=== PATIENT | male | born 1960 | race Caucasian/White ===

== ENCOUNTER 2017-03-03 10:35 | Inpatient (IN) | payer OTHER ==
[2017-03-03] VITALS (20 sets, daily range): BP systolic 76–124; BP diastolic 62–85; PULSE 0–145; RESP 12–22; TEMP 91–100; O2SAT 89–100
[~2017-03-03] VITALS: Ht 180.3 cm; Wt 145.6 kg
[~2017-03-03 10:35] MED LIST: AMIODARONE HCL 150 MG/3 ML VIAL IV ONE; ASPI81TA11 PO; CALCIUM CHLORIDE 10% SOLN 1 GRAM/10 ML SYR IV ONE; CARD240C6 PO; EPINEPHrine HCL (1:10,000) 1 MG/10 ML SYRINGE IV ONE; FURO1TAB93 PO; GLUCTAB PO; MULT-65 PO; SODIUM BICARBONATE 8.4% INJ 50 MEQ/50 ML SYR IV ONE
[2017-03-03] MEDS ORDERED: SODIUM CHLOR 0.9% 1000 ML INJ 1,000 ML IV SCH ×2 (10:52→11:57)
[2017-03-03] MEDS ORDERED: SODIUM CHLORIDE 0.9% FLUSH 5 ML FLUSH IV FLUSH PRN (11:00)
[2017-03-03] MEDS ORDERED: PROPOFOL 1000 MG/100 ML INJ 100 ML ONE (11:01)
[2017-03-03] MEDS ORDERED: MIDAZOLAM HCL 5 MG/ML VIAL (1 ML) ONE ×2 (11:06→14:28)
[2017-03-03 11:43] LABS: BLOOD GAS CARBOXYHEMOGLOBIN 3.8 % (0-4); BLOOD GAS HCO3 16 mmol/L (22-26); BLOOD GAS O2 HGB SATURATION 89 % (90-100); BLOOD GAS OXYGEN CONTENT 18.9 Vol % (12.0-20.0); BLOOD GAS PCO2 53 mmHg (38-42); BLOOD GAS PO2 95 mmHG (61-120); BLOOD GAS TOTAL HGB 15.1 G/DL (12.0-16.0); TEMP CORR TO 98.6
[2017-03-03 11:44] LABS: AUTOMATED NEUTROPHIL # 10.6 TH/MM3 (1.8-7.7); BASOPHIL # 0.1 TH/MM3 (0-0.2); BASOPHIL % 0.5 % (0.0-2.0); EOSINOPHIL # 0.2 TH/MM3 (0-0.4); EOSINOPHIL % 1.2 % (0.0-4.0); HEMATOCRIT 44.5 % (39.0-51.0); LYMPH % 7.9 % (9.0-44.0); MEAN CELL VOLUME 91.3 FL (80.0-100.0); MEAN CORPUSCULAR HGB CONC 32.8 % (32.0-36.0); MONO % 4.8 % (0.0-8.0); NEUT % 85.6 % (16.0-70.0); PLATELET COUNT 248 TH/MM3 (150-450); RED BLOOD COUNT 4.87 MIL/MM3 (4.50-5.90); RED CELL DISTRIBUTION WIDTH 15.7 % (11.6-17.2); WHITE BLOOD COUNT 12.3 TH/MM3 (4.0-11.0)
[2017-03-03 11:45] LABS: CRITICAL VALUE YES; DRAW SITE ARTLINE; FIO2 100 %; OXYGEN DEVICE VENT; STAT YES; ULNAR PULSE PRESENT; VENT SETTINGS AC16/550/+5/100
--- NOTE | 2017-03-03 11:48 | PD ---
HPI Chief Complaint: Code Blue Time Seen by Provider: 10:52 Travel History International Travel<30 days: No Contact w/Intl Traveler<30days: No Traveled to known affect area: No History of Present Illness HPI The patient is a 56-year-old male who presents to the emergency department via EMS as a cardiac arrest. According to EMS the patient was in the living room, the is in another room talking to him, when she heard a loud noise, when she entered the living room, the patient was on the floor face down. When EMS arrived they stated the patient was in fine V. fib, the defibrillator the patient 1 and he subsequently went into asystole and PEA. They placed an IM in the left lower extremity and administered 4 rounds of epinephrine and 100 mEq of bicarbonate. They stated the patient went into PA and then they regained pulses just prior to arrival. The patient does have a history of cardiomyopathy, no further information is obtainable from the patient as he was intubated in the field by EMS. Upon arrival the patient was intubated, pulseless, and CPR was initially started. PFSH Past Medical History Autoimmune Disease: No Cancer: No Cardiovascular Problems: Yes COPD: Yes Diabetes: No Diminished Hearing: No Endocrine: No Gastrointestinal Disorders: No Genitourinary: No Hypertension: Yes Immune Disorder: No Musculoskeletal: Yes Neurologic: No Psychiatric: No Reproductive: No Respiratory: Yes Tetanus Vaccination: Unknown Past Surgical History Abdominal Surgery: No Cardiac Surgery: Yes Ear Surgery: No Endocrine Surgery: No Eye Surgery: No Genitourinary Surgery: No Gynecologic Surgery: No Joint Replacement: No Oral Surgery: No Pacemaker: No Thoracic Surgery: No Other Surgery: Yes Social History Alcohol Use: Yes (SEVERAL TIMES PER WEEK) Tobacco Use: No (QUIT SMOKING ON THURSDAY LAST WEEK) Substance Use: No Allergies-Medications (Allergen,Severity, Reaction): Coded Allergies: No Known Allergies (Verified , 03/03/17) Reported Meds & Prescriptions Reported Meds & Active Scripts Active Active Prescriptions or Reported Medications Unobtainable Review of Systems ROS Limitations: Intubated Except as stated in HPI: all other systems reviewed are Neg Physical Exam Narrative GENERAL: 56-year-old male who arrives on a backboard, intubated, without pulse. SKIN: Focused skin assessment reveal slightly mottled skin. HEAD: Atraumatic. Normocephalic. EYES: Pupils equal and round. 4 mm bilateral and sluggish. ENT: No nasal bleeding or discharge. Endotracheal tube in place. NECK: Trachea midline. No JVD. CARDIOVASCULAR: No palpable pulse. RESPIRATORY: No accessory muscle use. Bilateral breath sounds via bag valve ventilation and endotracheal tube. GASTROINTESTINAL: Abdomen obese. No rigidity noted. MUSCULOSKELETAL: No obvious deformities. No clubbing. No cyanosis. No edema. NEUROLOGICAL: Intubated, GCS of 3. PSYCHIATRIC: Unable to obtain. Data Data Last Documented VS Vital Signs Date Time Temp Pulse Resp B/P Pulse Ox O2 Delivery O2 Flow Rate FiO2 03/03/17 12:00 134 12 102/68 95 Auto-Vent 03/03/17 11:00 100 03/03/17 10:33 15.00 Orders Electrocardiogram (03/03/17 10:52) Complete Blood Count With Diff (03/03/17 10:52) Comprehensive Metabolic Panel (03/03/17 10:52) Creatine Kinase (Cpk) (03/03/17 10:52) Prothrombin Time / Inr (Pt) (03/03/17 10:52) Act Partial Throm Time (Ptt) (03/03/17 10:52) Troponin I (03/03/17 10:52) Urinalysis - C+S If Indicated (03/03/17 10:52) Arterial Blood Gas (Abg) (03/03/17 10:52) Chest, Single Ap (03/03/17 10:52) Ct Brain W/O Iv Contrast(Rout) (03/03/17 10:52) Blood Glucose (03/03/17 10:52) Ecg Monitoring (03/03/17 10:52) Iv Access Insert/Monitor (03/03/17 10:52) Oximetry (03/03/17 10:52) Urinary Catheter Insert/Apply (03/03/17 10:52) Sodium Chloride 0.9% Flush (Ns Flush) (03/03/17 11:00) Sodium Chlor 0.9% 1000 Ml Inj (Ns 1000 M (03/03/17 10:52) Propofol 1000 Mg/100 Ml Inj (Diprivan 10 (03/03/17 11:01) Midazolam Inj (Versed Inj) (03/03/17 11:06) Arterial Blood Gas (Abg) (03/03/17 11:35) Admit To Inpatient (03/03/17 ) Code Status (03/03/17 11:57) Vital Signs (Adult) HECTOR.Q1H (03/03/17 11:57) Activity Bed Rest (03/03/17 11:57) ^ Elevate Head Of Bed (03/03/17 11:57) Diet Npo (03/03/17 Lunch) Sodium Chlor 0.9% 1000 Ml Inj (Ns 1000 M (03/03/17 11:57) Sodium Chloride 0.9% Flush (Ns Flush) (03/03/17 12:00) Sodium Chloride 0.9% Flush (Ns Flush) (03/03/17 21:00) Famotidine (Pepcid) (03/03/17 21:00) Artificial Tears Opth Soln (Tears Natura (03/03/17 13:00) Ondansetron Inj (Zofran Inj) (03/03/17 12:00) Albuterol-Ipratropium Neb (Duoneb Neb) (03/03/17 16:00) Albuterol-Ipratropium Neb (Duoneb Neb) (03/03/17 12:00) Echo 2d Comp With Doppler (03/03/17 ) Consult Cardiology (03/03/17 ) Straightening Machine Operator / Telemetry HECTOR.Q8H (03/03/17 11:57) Scd Bilateral/Knee High HECTOR.BID (03/03/17 11:57) ^ Initiate Protocol (03/03/17 11:57) Instruction (03/03/17 11:57) [facility] Nursing Information (03/03/17 12:00) Chlorhexidine 2% Cloth (Chlorhexidine 2% (03/04/17 04:00) Chlorhexidine 2% Cloth (Chlorhexidine 2% (03/03/17 12:00) Mrsa Pcr Surveillance (03/03/17 11:57) Docusate Sodium-Senna ([place]-Colace) (03/03/17 21:00) Magnesium Hydroxide Liq (Milk Of Magnesi (03/03/17 12:00) Sennosides (Senokot) (03/03/17 12:00) Bisacodyl Supp (Dulcolax Supp) (03/03/17 12:00) Lactulose Liq (Lactulose Liq) (03/03/17 12:00) ^ Medication Admin Instruction (03/03/17 11:57) Notify Dr: Other (03/03/17 11:57) Potassium Chlor 40 Meq Premix (Kcl 40 Me (03/03/17 12:00) Potassium Chlor 20 Meq Premix (Kcl 20 Me (03/03/17 12:00) Potassium Chloride Eff (K-Lyte Cl Eff) (03/03/17 12:00) Potassium Chlor 40 Meq Premix (Kcl 40 Me (03/03/17 12:00) Potassium Chlor 20 Meq Premix (Kcl 20 Me (03/03/17 12:00) Magnesium Sulfate Inj (Magnesium Sulfate (03/03/17 12:00) Magnesium Oxide (Mag-Ox) (03/03/17 12:00) Magnesium Sulfate Inj (Magnesium Sulfate (03/03/17 12:00) Potassium Phosphate (K-Phos) (03/03/17 12:00) Sodium Phosphate Inj (Sodium Phosphate I (03/03/17 12:00) Potassium Phosphate (K-Phos) (03/03/17 12:00) Potassium Phosphate Inj (Potassium Phosp (03/03/17 12:00) Neurological Rass Scale HECTOR.Q2H.E (03/03/17 11:57) ^ Elevate Head Of Bed (03/03/17 11:57) Chlorhexidine 0.12% Liq (Peridex 0.12% L (03/03/17 20:00) Resp Ventilation- Volume (03/03/17 ) Restraints Non-Violent HECTOR.Q3H (03/03/17 11:57) Ventilator Weaning Readiness HECTOR.DAILY@0800 (03/03/17 11:57) Blood Glucose Goal (Criteria) (03/03/17 11:57) Hypoglycemia 70 Mg/Dl Or < (03/03/17 11:57) Notify Dr: Other (03/03/17 11:57) Dextrose 50% In Luis (Vial) Inj (D50w (Vi (03/03/17 12:00) Glucagon Inj (Glucagon Inj) (03/03/17 12:00) Insulin Human Reg Supp Scale (Novolin R (03/03/17 16:00) Inpatient Certification (03/03/17 ) Norepinephrine-Dextrose Drip (Levophed-D (03/03/17 12:15) Terbutaline Inj (Brethine Inj) (03/03/17 12:15) Admit Order (Ed Use Only) (03/03/17 12:25) Arterial Blood Gas (Abg) (03/03/17 12:28) Magnesium (Mg) (03/03/17 11:10) Phosphorus (Po4) (03/03/17 11:10) Labs Laboratory Tests Test 03/03/17 03/03/17 03/03/17 11:10 11:30 11:35 White Blood Count 12.3 TH/MM3 Red Blood Count 4.87 MIL/MM3 Hemoglobin 14.6 GM/DL Hematocrit 44.5 % Mean Corpuscular Volume 91.3 FL Mean Corpuscular Hemoglobin 30.0 PG Mean Corpuscular Hemoglobin 32.8 % Concent Red Cell Distribution Width 15.7 % Platelet Count 248 TH/MM3 Mean Platelet Volume 8.5 FL Neutrophils (%) (Auto) 85.6 % Lymphocytes (%) (Auto) 7.9 % Monocytes (%) (Auto) 4.8 % Eosinophils (%) (Auto) 1.2 % Basophils (%) (Auto) 0.5 % Neutrophils # (Auto) 10.6 TH/MM3 Lymphocytes # (Auto) 1.0 TH/MM3 Monocytes # (Auto) 0.6 TH/MM3 Eosinophils # (Auto) 0.2 TH/MM3 Basophils # (Auto) 0.1 TH/MM3 CBC Comment AUTO DIFF Differential Total Cells 100 Counted Neutrophils % (Manual) 64 % Band Neutrophils % 10 % Lymphocytes % 8 % Monocytes % 6 % Eosinophils % 1 % Neutrophils # (Manual) 10.5 TH/MM3 Metamyelocytes 9 % Myelocytes 2 % Differential Comment FINAL DIFF MANUAL Platelet Estimate NORMAL Platelet Morphology Comment NORMAL [place] Cells 1+ Prothrombin Time 17.0 SEC Prothromb Time International 1.5 RATIO Ratio Activated Partial 34.4 SEC Thromboplast Time Urine Color ORANGE Urine Turbidity CLEAR Urine pH 5.5 Urine Specific [place] 1.022 Urine Protein TRACE mg/dL Urine Glucose (UA) NEG mg/dL Urine Ketones NEG mg/dL Urine Occult Blood SMALL Urine Nitrite NEG Urine Bilirubin NEG Urine Urobilinogen 4.0 MG/DL Urine Leukocyte Esterase NEG Urine RBC 7 /hpf Urine WBC 2 /hpf Urine Squamous Epithelial <1 /hpf Cells Urine Hyaline Casts 16 /lpf Urine Mucus FEW /lpf Urine Sperm RARE Microscopic Urinalysis Comment CATH-CULT NOT IND Sodium Level 134 MEQ/L Potassium Level 3.9 MEQ/L Chloride Level 99 MEQ/L Carbon Dioxide Level 18.9 MEQ/L Anion Gap 16 MEQ/L Blood Urea Nitrogen 29 MG/DL Creatinine 1.41 MG/DL Estimat Glomerular Filtration 52 ML/MIN Rate Random Glucose 121 MG/DL Calcium Level 8.0 MG/DL Phosphorus Level 7.1 MG/DL Magnesium Level 2.1 MG/DL Total Bilirubin 1.6 MG/DL Aspartate Amino Transf 53 U/L (AST/SGOT) Alanine Aminotransferase 39 U/L (ALT/SGPT) Alkaline Phosphatase 111 U/L Total Creatine Kinase 99 U/L Troponin I 0.59 NG/ML Total Protein 6.5 GM/DL Albumin 2.9 GM/DL Urine Opiates Screen NEG Urine Barbiturates Screen NEG Urine Amphetamines Screen NEG Urine Benzodiazepines Screen NEG Urine Cocaine Screen NEG Urine Cannabinoids Screen NEG Blood Type O NEGATIVE Antibody Screen NEGATIVE Blood Bank Comment Blood Gas Puncture Site ARTLINE Blood Gas Patient Temperature 98.6 Blood Gas HCO3 16 mmol/L Blood Gas Base Excess -12.0 mmol/L Blood Gas Oxygen Saturation 89 % Arterial Blood pH 7.11 Arterial Blood Partial 53 mmHg Pressure CO2 Arterial Blood Partial 95 mmHG Pressure O2 Arterial Blood Oxygen Content 18.9 Vol % Arterial Blood 3.8 % Carboxyhemoglobin Arterial Blood Methemoglobin 1.0 % Blood Gas Hemoglobin 15.1 G/DL Oxygen Delivery Device VENT Blood Gas Ventilator Setting AC16/550/+5/100 Blood Gas Inspired Oxygen 100 % [facility] Medical Decision Making Medical Screen Exam Complete: Yes Emergency Medical Condition: Yes Medical Record Reviewed: Yes Interpretation(s) EKG reveals atrial fibrillation with aberrancy, PVC noted. IV conduction delay noted. Q wave noted in lead 2, 3, and aVF. Prominent R wave noted in V1 and V2 , possible posterior AK. Laboratory Tests Test 03/03/17 03/03/17 03/03/17 11:10 11:30 11:35 White Blood Count 12.3 TH/MM3 Red Blood Count 4.87 MIL/MM3 Hemoglobin 14.6 GM/DL Hematocrit 44.5 % Mean Corpuscular Volume 91.3 FL Mean Corpuscular Hemoglobin 30.0 PG Mean Corpuscular Hemoglobin 32.8 % Concent Red Cell Distribution Width 15.7 % Platelet Count 248 TH/MM3 Mean Platelet Volume 8.5 FL Neutrophils (%) (Auto) 85.6 % Lymphocytes (%) (Auto) 7.9 % Monocytes (%) (Auto) 4.8 % Eosinophils (%) (Auto) 1.2 % Basophils (%) (Auto) 0.5 % Neutrophils # (Auto) 10.6 TH/MM3 Lymphocytes # (Auto) 1.0 TH/MM3 Monocytes # (Auto) 0.6 TH/MM3 Eosinophils # (Auto) 0.2 TH/MM3 Basophils # (Auto) 0.1 TH/MM3 CBC Comment AUTO DIFF Differential Total Cells 100 Counted Neutrophils % (Manual) 64 % Band Neutrophils % 10 % Lymphocytes % 8 % Monocytes % 6 % Eosinophils % 1 % Neutrophils # (Manual) 10.5 TH/MM3 Metamyelocytes 9 % Myelocytes 2 % Differential Comment FINAL DIFF MANUAL Platelet Estimate NORMAL Platelet Morphology Comment NORMAL [place] Cells 1+ Prothrombin Time 17.0 SEC Prothromb Time International 1.5 RATIO Ratio Activated Partial 34.4 SEC Thromboplast Time Urine Color ORANGE Urine Turbidity CLEAR Urine pH 5.5 Urine Specific [place] 1.022 Urine Protein TRACE mg/dL Urine Glucose (UA) NEG mg/dL Urine Ketones NEG mg/dL Urine Occult Blood SMALL Urine Nitrite NEG Urine Bilirubin NEG Urine Urobilinogen 4.0 MG/DL Urine Leukocyte Esterase NEG Urine RBC 7 /hpf Urine WBC 2 /hpf Urine Squamous Epithelial <1 /hpf Cells Urine Hyaline Casts 16 /lpf Urine Mucus FEW /lpf Urine Sperm RARE Microscopic Urinalysis Comment CATH-CULT NOT IND Sodium Level 134 MEQ/L Potassium Level 3.9 MEQ/L Chloride Level 99 MEQ/L Carbon Dioxide Level 18.9 MEQ/L Anion Gap 16 MEQ/L Blood Urea Nitrogen 29 MG/DL Creatinine 1.41 MG/DL Estimat Glomerular Filtration 52 ML/MIN Rate Random Glucose 121 MG/DL Calcium Level 8.0 MG/DL Phosphorus Level 7.1 MG/DL Magnesium Level 2.1 MG/DL Total Bilirubin 1.6 MG/DL Aspartate Amino Transf 53 U/L (AST/SGOT) Alanine Aminotransferase 39 U/L (ALT/SGPT) Alkaline Phosphatase 111 U/L Total Creatine Kinase 99 U/L Troponin I 0.59 NG/ML Total Protein 6.5 GM/DL Albumin 2.9 GM/DL Urine Opiates Screen NEG Urine Barbiturates Screen NEG Urine Amphetamines Screen NEG Urine Benzodiazepines Screen NEG Urine Cocaine Screen NEG Urine Cannabinoids Screen NEG Blood Type O NEGATIVE Antibody Screen NEGATIVE Blood Bank Comment Blood Gas Puncture Site ARTLINE Blood Gas Patient Temperature 98.6 Blood Gas HCO3 16 mmol/L Blood Gas Base Excess -12.0 mmol/L Blood Gas Oxygen Saturation 89 % Arterial Blood pH 7.11 Arterial Blood Partial 53 mmHg Pressure CO2 Arterial Blood Partial 95 mmHG Pressure O2 Arterial Blood Oxygen Content 18.9 Vol % Arterial Blood 3.8 % Carboxyhemoglobin Arterial Blood Methemoglobin 1.0 % Blood Gas Hemoglobin 15.1 G/DL Oxygen Delivery Device VENT Blood Gas Ventilator Setting AC16/550/+5/100 Blood Gas Inspired Oxygen 100 % Last Impressions Head CT 03/03/17 1052 Signed Impressions: Service Date/Time: Friday, March 03, 2017 12:02 - CONCLUSION: 1. High density ovoid lesion within the region of the sella/suprasellar cistern measuring 11 x 14 mm. This raises the possibility of anterior communicating artery aneurysm. CTA or MRA of the brain would be helpful for further evaluation of this finding. 2. No evidence of acute hemorrhage, acute infarct, mass effect or extra axial fluid collections. 3. Minimal periventricular white matter small vessel ischemic changes bilaterally. Ronaldo George MD ADDENDUM: The report was called to the emergency room staff immediately at 12:20 PM on 03/03/17. Ronaldo George MD Chest X-Ray 03/03/17 1052 Signed Impressions: Service Date/Time: Friday, March 03, 2017 11:29 - CONCLUSION: Satisfactory position endotracheal, nasogastric and central venous support devices. Mild congestive changes with small right pleural effusion and right basilar airspace disease. Koffi Acuna MD Differential Diagnosis Differential diagnosis includes arrhythmia, cardiopulmonary arrest, COPD exacerbation, cardiomyopathy, AK, pulmonary embolism, hypokalemia, hyperkalemia , hypoxia. Narrative Course Upon arrival the patient had a GCS of 3 and had no palpable pulse. Therefore, CPR was immediately started. The patient had 2 large-bore IVs established, labs are drawn and sent, and the patient was placed on cardiac telemetry monitoring and continuous pulse oximetry monitor. ACLS protocol was followed. The patient was administered 1 mg of epinephrine intravenously. CPR was instituted for 2 more minutes, pulses were rechecked, patient regained pulses. Therefore, the patient was placed on IV fluids, and arterial line was placed in the left wrist and a central line was placed in the right internal jugular vein. As the patient initially had fine V. fib and the was talking to the patient from another room when he apparently arrested, I immediately called the pain medicine physician and spoke with Dr. Dodge regarding a code cool. I also discussed the patient with the [facility] cnc technician on-call, Dr. Osborne, I discussed the patient's case. The patient had a cardiac catheterization performed at 2012 which revealed 20-30% stenosis of his coronary vessels but revealed global hypokinesis consistent with cardiomyopathy. I discussed the patient with his in the consultation room and family. Post procedure x- ray was obtained and CT the brain was obtained. Dr. Dodge evaluated the patient at bedside, was at the patient's bedside at 11:40 AM. The patient was admitted to the cardiovascular intensive surgical care unit for cooling. CT the brain was negative. Chest x-ray reveals proper placement of endotracheal tube and central line. Critical Care Narrative Aggregate critical care time was 45 minutes. Time to perform other separately billable procedures was not included in the critical care time. My time did not include minutes spent treating any other patients simultaneously or on activities that did not directly contribute to the patient's treatment. The services I provided to this patient were to treat and/or prevent clinically significant deterioration that could result in: Anoxia, hypoxia aspiration, arrhythmia, cardiopulmonary arrest, . I provided critical care services requiring my management, as noted below: Chart data review, documentation time, medication orders and management, vital sign assessments/reviewing monitor data, ordering and reviewing lab tests, ordering and interpreting/reviewing x-rays and diagnostic studies, care of the patient and discussion of the patient with the admitting physicians. Procedures Procedure Narrative CENTRAL VENOUS LINE: The site was prepped with Betadine and sterilely draped. It was infiltrated with 1% lidocaine plain. The deep vein was cannulated using normal Seldinger technique. A triple lumen central line was placed in the right internal jugular site and secured with simple interrupted suture. The site was sterilely dressed. The patient tolerated the procedure well. An arterial line was placed in the left radial artery under ultrasound guidance using the Seldinger technique. There was positive arterial return, the patient tolerated the procedure without difficulty. Physician Communication Physician Communication I discussed the patient with the on-call pain medicine physician, Dr. Dodge, who agrees with admission. Diagnosis Primary Impression: Cardiopulmonary arrest with successful resuscitation Admitting Information Admitting Physician Requests: Admit Scripts Unable to Obtain Active Prescriptions or Reported Meds Condition: Critical Devan Hays MD Mar 03, 2017 11:48
[2017-03-03 11:49] LABS: BLOOD, URINE SMALL (NEG); GLUCOSE,URINE NEG (NEG); HEMO FLAGS AUTO DIFF; HYALINE CAST, URINE 16 /lpf (RARE); KETONE, URINE NEG (NEG); MUCUS URINE FEW /lpf (OCC); NITRITE,URINE NEG (NEG); PH, URINE 5.5 (5.0-8.5); SQUAMOUS EPITHELIAL CELL URINE <1 /hpf (0-5)
[2017-03-03 11:50] LABS: URINE COLOR ORANGE (YELLW/STRAW)
[2017-03-03 11:51] LABS: COMMENT (UR) CATH-CULT NOT IND; CULTURE IF INDICATED CATH CULTURE NOT IND
[2017-03-03 11:55] LABS: APTT (PATIENT) 34.4 SEC (24.3-30.1); INTERNATIONAL NORMALIZED RATIO 1.5 RATIO
--- NOTE | 2017-03-03 11:55 | RADRPT ---
EXAM DATE/TIME: 03/03/2017 11:29 [place] COMPARISON: No previous studies available for comparison. INDICATIONS : Evaluate ET tube placement. MEDICAL HISTORY : Unobtainable SURGICAL HISTORY : Unobtainable ENCOUNTER: Initial ACUITY: 1 day PAIN SCORE: Non-responsive. LOCATION: Bilateral chest FINDINGS: Endotracheal tube, right jugular central venous catheter and nasogastric tube are identified and are in good position. Interstitial vascular prominence is seen of both lungs. Consolidating airspace disease is identified in the right base. There is a small right pleural effusion. Heart is moderately enlarged. CONCLUSION: Satisfactory position endotracheal, nasogastric and central venous support devices. Mild congestive changes with small right pleural effusion and right basilar airspace disease. Koffi Acuna MD on March 03, 2017 at 11:51 Board Certified Radiologist. This report was verified electronically.
[2017-03-03] MEDS ORDERED: POTASSIUM PHOSPHATE INJ 30 MMOL in SODIUM CHLOR 0.9% 250 ML INJ 250 ML IV PRN (12:00)
[2017-03-03] MEDS ORDERED: MAGNESIUM OXIDE 400 MG TAB PO PRN (12:00)
[2017-03-03] MEDS ORDERED: CHLORHEXIDINE GLUCONATE 2 % 1 PACK (2 CLOTHS) TOP PRN (12:00)
[2017-03-03] MEDS ORDERED: POTASSIUM PHOSPHATE MONOBASIC 500 MG TAB PO/TUBE PRN (12:00)
[2017-03-03] MEDS ORDERED: MISCELLANEOUS NURSING INFORMATION XX SCH (12:00)
[2017-03-03] MEDS ORDERED: MAGNESIUM SULFATE INJ 2 GM in SODIUM CHLORIDE 0.9% INJ 96 ML IV PRN (12:00)
[2017-03-03] MEDS ORDERED: BISACODYL 10 MG SUPP RECTAL PRN (12:00)
[2017-03-03] MEDS ORDERED: SODIUM CHLORIDE 0.9% FLUSH 10 ML FLUSH IV FLUSH PRN (12:00)
[2017-03-03] MEDS ORDERED: POTASSIUM CHLOR 40 MEQ PREMIX 100 ML IV PRN ×2 (12:00)
[2017-03-03] MEDS ORDERED: MAGNESIUM HYDROXIDE SUSP 30 ML CUP PO PRN (12:00)
[2017-03-03] MEDS ORDERED: RESP: ALBUTEROL 2.5 MG/IPRATROPIUM 0.5 MG NEB (PRN) INH (12:00)
[2017-03-03] MEDS ORDERED: ONDANSETRON HCL 4 MG/2 ML VIAL IV PRN (12:00)
[2017-03-03] MEDS ORDERED: LACTULOSE SYRUP 20 GM/30 ML CUP PO PRN (12:00)
[2017-03-03] MEDS ORDERED: SENNOSIDES 8.6 MG TAB PO PRN (12:00)
[2017-03-03] MEDS ORDERED: DEXTROSE 50% IN WATER 50 ML VIAL(D50) IV PRN (12:00)
[2017-03-03] MEDS ORDERED: SODIUM PHOSPHATE INJ 30 MMOL in SODIUM CHLOR 0.9% 250 ML INJ 240 ML IV PRN (12:00)
[2017-03-03] MEDS ORDERED: MAGNESIUM SULFATE INJ 4 GM in SODIUM CHLORIDE 0.9% INJ 92 ML IV PRN (12:00)
[2017-03-03] MEDS ORDERED: POTASSIUM CHLORIDE 25 MEQ EFFERVESCENT TAB PO PRN (12:00)
[2017-03-03] MEDS ORDERED: GLUCAGON 1 MG/ML VIAL OTHER PRN (12:00)
[2017-03-03] MEDS ORDERED: POTASSIUM PHOSPHATE MONOBASIC 500 MG TAB PO PRN (12:00)
[2017-03-03] MEDS ORDERED: TERBUTALINE INJ 1 MG/ML AMP SQ PRN ×2 (12:15→17:00)
[2017-03-03] MEDS ORDERED: NOREPINEPHRINE-DEXTROSE DRIP 250 ML IV SCH (12:15)
--- NOTE | 2017-03-03 12:18 | HHI.HP ---
HPI Service Critical Care Medicine Primary Care Physician Damián Hebert Admission Diagnosis S/P VFib arrest Diagnosis: Travel History International Travel<30 Days: No Contact w/Intl Traveler <30 Da: No Traveled to Known Affected Are: No History of Present Illness The patient is a 56-year-old male who presents to the emergency department via EMS as a cardiac arrest. According to EMS the patient was in the living room, the is in another room talking to him, when she heard a loud noise, when she entered the living room, the patient was on the floor face down. When EMS arrived they stated the patient was in fine V. fib, the defibrillator the patient 1 and he subsequently went into asystole and PEA. They placed an IM in the left lower extremity and administered 4 rounds of epinephrine and 100 mEq of bicarbonate. They stated the patient went into PA and then they regained pulses just prior to arrival. The patient is well known to the cardiology, Dr. Akbar In discussion with cardiology the patient has a known nonischemic cardiomyopathy, AICD was offered to the patient several months ago, at which the patient declined.He was intubated in the field by EMS. Upon arrival the patient was intubated, pulseless, and CPR was initially started. Critical care medicine was consulted for management. History PFSH Past Medical History Autoimmune Disease: No Cancer: No Cardiovascular Problems: Yes COPD: Yes Diabetes: No Diminished Hearing: No Endocrine: No Gastrointestinal Disorders: No Genitourinary: No Hypertension: Yes Immune Disorder: No Musculoskeletal: Yes Neurologic: No Psychiatric: No Reproductive: No Respiratory: Yes Tetanus Vaccination: Unknown Past Surgical History Abdominal Surgery: No Cardiac Surgery: Yes Ear Surgery: No Endocrine Surgery: No Eye Surgery: No Genitourinary Surgery: No Gynecologic Surgery: No Joint Replacement: No Oral Surgery: No Pacemaker: No Thoracic Surgery: No Other Surgery: Yes Social History Alcohol Use: Yes (SEVERAL TIMES PER WEEK) Tobacco Use: No (QUIT SMOKING ON THURSDAY LAST WEEK) Substance Use: No Allergies-Medications Allergies-Medications (Allergen,Severity, Reaction): Coded Allergies: No Known Allergies (Verified , 03/03/17) Reported Meds & Prescriptions Reported Meds & Active Scripts Active Active Prescriptions or Reported Medications Unobtainable ROS Review of Systems ROS Limitations: Intubated Except as stated in HPI: all other systems reviewed are Neg Review of Systems ROS Limitations: Clinical Condition Past Family Social History Allergies: Coded Allergies: No Known Allergies (Verified , 03/03/17) Physical Exam Vital Signs Vital Signs Date Time Temp Pulse Resp B/P Pulse Ox O2 Delivery O2 Flow Rate FiO2 03/03/17 11:13 116 12 100/74 100 Auto-Vent 03/03/17 11:00 0 12 Physical Exam GENERAL: Obese male, intubated, no sedation, nonresponsive. SKIN: Warm and dry. HEAD: Atraumatic. Normocephalic. EYES: Pupils equal and round. No scleral icterus. No injection or drainage. ENT: No nasal bleeding or discharge. Mucous membranes pink and moist. NECK: Trachea midline. No JVD. CARDIOVASCULAR: Normal rate, irregular rhythm. RESPIRATORY: Mechanical ventilation. Clear to auscultation. Breath sounds equal bilaterally. GASTROINTESTINAL: Abdomen soft, obese. Hypoactive bowel sounds MUSCULOSKELETAL: Extremities without clubbing, cyanosis, or edema. No obvious deformities. NEUROLOGICAL: Intubated, nonresponsive. Laboratory Laboratory Tests Test 03/03/17 03/03/17 11:10 11:35 White Blood Count 12.3 Red Blood Count 4.87 Hemoglobin 14.6 Hematocrit 44.5 Mean Corpuscular Volume 91.3 Mean Corpuscular Hemoglobin 30.0 Mean Corpuscular Hemoglobin 32.8 Concent Red Cell Distribution Width 15.7 Platelet Count 248 Mean Platelet Volume 8.5 Neutrophils (%) (Auto) 85.6 Lymphocytes (%) (Auto) 7.9 Monocytes (%) (Auto) 4.8 Eosinophils (%) (Auto) 1.2 Basophils (%) (Auto) 0.5 Neutrophils # (Auto) 10.6 Lymphocytes # (Auto) 1.0 Monocytes # (Auto) 0.6 Eosinophils # (Auto) 0.2 Basophils # (Auto) 0.1 CBC Comment AUTO DIFF Prothrombin Time 17.0 Prothromb Time International 1.5 Ratio Activated Partial 34.4 Thromboplast Time Urine Color ORANGE Urine Turbidity CLEAR Urine pH 5.5 Urine Specific [place] 1.022 Urine Protein TRACE Urine Glucose (UA) NEG Urine Ketones NEG Urine Occult Blood SMALL Urine Nitrite NEG Urine Bilirubin NEG Urine Urobilinogen 4.0 Urine Leukocyte Esterase NEG Urine RBC 7 Urine WBC 2 Urine Squamous Epithelial <1 Cells Urine Hyaline Casts 16 Urine Mucus FEW Urine Sperm RARE Microscopic Urinalysis Comment CATH-CULT NOT IND Blood Gas Puncture Site ARTLINE Blood Gas Patient Temperature 98.6 Blood Gas HCO3 16 Blood Gas Base Excess -12.0 Blood Gas Oxygen Saturation 89 Arterial Blood pH 7.11 Arterial Blood Partial 53 Pressure CO2 Arterial Blood Partial 95 Pressure O2 Arterial Blood Oxygen Content 18.9 Arterial Blood 3.8 Carboxyhemoglobin Arterial Blood Methemoglobin 1.0 Blood Gas Hemoglobin 15.1 Oxygen Delivery Device VENT Blood Gas Ventilator Setting AC16/550/+5/100 Blood Gas Inspired Oxygen 100 Result Diagram: 03/03/17 1110 Imaging Last Impressions Head CT 03/03/17 1052 Signed Impressions: Service Date/Time: Friday, March 03, 2017 12:02 - CONCLUSION: 1. High density ovoid lesion within the region of the sella/suprasellar cistern measuring 11 x 14 mm. This raises the possibility of anterior communicating artery aneurysm. CTA or MRA of the brain would be helpful for further evaluation of this finding. 2. No evidence of acute hemorrhage, acute infarct, mass effect or extra axial fluid collections. 3. Minimal periventricular white matter small vessel ischemic changes bilaterally. Ronaldo George MD ADDENDUM: The report was called to the emergency room staff immediately at 12:20 PM on 03/03/17. Ronaldo George MD Chest X-Ray 03/03/17 1052 Signed Impressions: Service Date/Time: Friday, March 03, 2017 11:29 - CONCLUSION: Satisfactory position endotracheal, nasogastric and central venous support devices. Mild congestive changes with small right pleural effusion and right basilar airspace disease. Koffi Acuna MD Septic Shock Reassessment Heart: Irregular Lungs: Clear Skin: Cold Capillary Refill: >2 seconds Assessment and Plan Assessment and Plan This is a 56-year-old critically ill male, status post witnessed V. fib arrest. Upon admission to the ED the patient was noted to be pulseless, CPR was reinitiated x 34 minutes, with an additional dose of epinephrine, ROSC. The patient's prognosis is extremely guarded, the patient has a long history of nonischemic cardiomyopathy at which point AICD was offered but the patient declined. Discussion with cardiology regarding patient . Plan initiation of post arrest hypothermia protocol. Plan by systems: Neurologic: Possible Hypoxic encephalopathy --GCS 3T --Neurology consult post hypothermia protocol --Will obtain EEG post hypothermia protocol --Versed and fentanyl infusions to maintain ventilator synchrony Respiratory: Respiratory arrest --Mechanical ventilation --Follow-up ABG Cardiovascular: S/P V. fib arrest Nonischemic cardiomyopathy --Initiate postarrest hypothermia protocol-cisatracurium, Versed, fentanyl --Norepinephrine maintain MAP greater than 65mmHg Renal: Insert Farah -- Strict I/Os FEN/GI: Metabolic acidosis --Initiate sodium bicarbonate infusion --Nothing by mouth status -- Zofran for nausea --Maintain OGT to LIWS Heme/ID: --Monitor CBC --Obtain cultures if indicated Endocrine: Glucose monitoring per ICU protocol -- SSI Prophylaxis: GI Prophylaxis Pepcid 20 mg twice a day DVT Prophylaxis -- SCDs Lines: Right radial a line, day #1, right IJ day #1 Dispo: Code Status Full Discussed Condition With Discussed with Dr. Hays (ED) , Dr. Osborne ( cardiology), ED, ABSTRACT CLERK at bedside, and long discussion with family. This patient remains critically ill with one or more organ systems which are or may become a threat to life. I have spent in excess of 60 minutes discontinuously in the care and management of this patient. This time is exclusive of procedures, and includes, but is not limited to, evaluation of the patient, review of the medical record, discussions with family, consultants, nursing staff, or respiratory therapy, and documentation in the medical record. Cynthia Dodge MD Mar 03, 2017 12:18
[2017-03-03 12:23] LABS: ALKALINE PHOSPHATASE 111 U/L (45-117); ALT (GPT) 39 U/L (12-78); ANION GAP 16 MEQ/L (5-15); AST (GOT) 53 U/L (15-37); BICARBONATE 18.9 MEQ/L (21.0-32.0); BLOOD UREA NITROGEN 29 MG/DL (7-18); CHLORIDE 99 MEQ/L (98-107); GLOMERULAR FILTRATION RATE 52 ML/MIN (>89); POTASSIUM 3.9 MEQ/L (3.5-5.1); SODIUM (NA) 134 MEQ/L (136-145); TOTAL BILIRUBIN ADULT 1.6 MG/DL (0.2-1.0)
--- NOTE | 2017-03-03 12:24 | RADRPT ---
EXAM DATE/TIME: 03/03/2017 12:02 This report includes an Addendum and supersedes previous reports for this exam. [facility] COMPARISON: No previous studies available for comparison. INDICATIONS : Altered mental status RADIATION DOSE: 48.19 CTDIvol (mGy) MEDICAL HISTORY : Hypertension. Cardiovascular disease SURGICAL HISTORY : Non-responsive. ENCOUNTER: Initial ACUITY: 1 day PAIN SCALE: Non-responsive LOCATION: cranial TECHNIQUE: Multiple contiguous axial images were obtained of the head. Using automated exposure control and adj ustment of the mA and/or kV according to patient size, radiation dose was kept as low as reasonably a chievable to obtain optimal diagnostic quality images. FINDINGS: CEREBRUM: There is a high density ovoid lesion within the region of the sella/suprasellar cistern measuring 11 x 14 mm. This raises the possibility of anterior communicating artery aneurysm. CTA or MRA of the bra in would be helpful for further evaluation of this finding. The ventricles are normal for age. No ev idence of midline shift, mass lesion, hemorrhage or acute infarction. No extra-axial fluid collectio ns are seen. Minimal periventricular white matter small vessel ischemic changes are noted bilaterally . POSTERIOR FOSSA: The cerebellum and brainstem are intact. The 4th ventricle is midline. The cerebellopontine angle i s unremarkable. EXTRACRANIAL: The visualized portion of the orbits is intact. SKULL: The calvaria is intact. No evidence of skull fracture. CONCLUSION: 1. High density ovoid lesion within the region of the sella/suprasellar cistern measuring 11 x 14 mm. This raises the possibility of anterior communicating artery aneurysm. CTA or MRA of the brain would be helpful for further evaluation of this finding. 2. No evidence of acute hemorrhage, acute infarct, mass effect or extra axial fluid collections. 3. Minimal periventricular white matter small vessel ischemic changes bilaterally. Ronaldo George MD on March 03, 2017 at 12:17 Board Certified Radiologist. This report was verified electronically. ADDENDUM: The report was called to the emergency room staff immediately at 12:20 PM on 03/03/17. Ronaldo George MD on March 03, 2017 at 12:23 Board Certified Radiologist. This report was verified electronically.
[2017-03-03 12:25] LABS: CREATINE KINASE 99 U/L (39-308)
[2017-03-03 12:46] LABS: BANDS 10 % (0-6); EOSINOPHILS 1 % (0-4); METAMYELOCYTES 9 % (0-1); MYELOCYTES 2 % (0-0); NEUTROPHIL # MANUAL DIFF 10.5 TH/MM3 (1.8-7.7); POLYS (SEG NEUTROPHILS) 64 % (16-70); WBC DIFF SAMPLE 100
[2017-03-03 12:47] LABS: BURR CELLS 1+ (NORMAL); PLATELET ESTIMATE SMEAR NORMAL (NORMAL); PLATELET MORPHOLOGY NORMAL (NORMAL); SCAN/DIFF FINAL DIFF MANUAL
[2017-03-03] MEDS ORDERED: LORazepam 2 MG/ML VIAL IV PRN (13:00)
[2017-03-03] MEDS ORDERED: busPIRone HCL 5 MG TAB NG PRN (13:00)
[2017-03-03] MEDS ORDERED: ARTIFICIAL TEARS OPTH OINT 3.5 APPLIC/3.5 GM TUBO EACH EYE PRN (13:00)
[2017-03-03] MEDS ORDERED: MEPERIDINE HCL 25 MG/ML VIAL IVP PRN (13:00)
[2017-03-03] MEDS ORDERED: MAGNESIUM SULFATE INJ 4 GM in SODIUM CHLOR 0.9% 250 ML INJ 242 ML IV PRN (13:00)
[2017-03-03] MEDS ORDERED: ACETAMINOPHEN 650 MG/20.3 ML UDC NG PRN (13:00)
[2017-03-03] MEDS: ARTIFICIAL TEARS OPTH SOLN 15 ML BTL EACH EYE SCH ×2 (13:00→18:00)
[2017-03-03 13:13] LABS: MAGNESIUM 2.1 MG/DL (1.5-2.5)
[2017-03-03 13:36] LABS: AMPHETAMINE, URINE NEG (NEG); BARBITURATES, URINE NEG (NEG); COCAINE, URINE NEG (NEG)
[2017-03-03] MEDS: fentaNYL DRIP 250 ML IV SCH (13:57)
[2017-03-03] MEDS: SODIUM BICARBONATE 8.4% INJ 150 MEQ in SODIUM CHLOR 0.9% 1000 ML INJ 850 ML IV SCH ×2 (13:58→23:25)
[2017-03-03] MEDS ORDERED: DILTIAZEM HCL 25 MG/5 ML VIAL ONE (14:29)
[2017-03-03] MEDS ORDERED: SUCCINYLCHOLINE CHLORIDE 200 MG/10 ML VIAL ONE (14:55)
[2017-03-03] MEDS ORDERED: ENOXAPARIN SODIUM 120 MG/0.8 ML SYRINGE SQ SCH (15:00)
[2017-03-03] MEDS ORDERED: MIDAZOLAM HCL 2 MG/2 ML VIAL IV PUSH ONE (15:00)
[2017-03-03] MEDS ORDERED: DILTIAZEM HCL 25 MG/5 ML VIAL IV ONE (15:00)
--- NOTE | 2017-03-03 15:08 | MB ---
cc: AARON NORIEGA MD DATE OF CONSULTATION: 03/03/2017 HISTORY OF PRESENT ILLNESS This is a 56-year-old gentleman who was admitted to the hospital after suffering a cardiac arrest at home. He has a history of nonischemic cardiomyopathy documented by prior cardiac catheterization one year ago. He apparently was doing well and collapsed at home. EMS arrived and the patient was in ventricular fibrillation. He was subsequently defibrillated and resuscitated back to atrial fibrillation with stable blood pressure. He is unconscious with some apparent seizure activity at this point in time and further history is not able to be obtained. Review of his outpatient record in addition to the above notes that Dr. Akbar, who had been following the patient as an outpatient, had discussed a defibrillator at his last outpatient visit and was declined. Currently the patient is unconscious and intubated. He has been seizing which has been temporarily resolved after the administration of Versed and planning on Dilantin therapy. PAST MEDICAL HISTORY Otherwise significant for COPD. SOCIAL HISTORY The patient uses alcohol moderately. He is a tobacco user of a pack per day having stopped last week. He does not use recreational drugs. ALLERGIES None. PHYSICAL EXAMINATION VITAL SIGNS: Blood pressure is 120/70, pulse 130-140 and irregular. NECK: There is no neck vein distention. LUNGS: Essentially clear. CARDIOVASCULAR: Irregularly irregular rhythm. No murmur noted. ABDOMEN: Morbidly obese and nontender. NEUROLOGIC: Nonfocal at this time. ELECTROCARDIOGRAM Electrocardiogram demonstrates atrial fibrillation with a nonspecific conduction defect, but no acute ST or T-wave changes. LABORATORY Initial laboratory examination is significant for an elevated troponin of 0.59. His electrolytes are normal except for a decrease in carbon dioxide at 18.9 and an elevated lactic acid level of 6.0. ASSESSMENT AND PLAN The patient has had an out of hospital arrest, likely secondary to his known ischemic cardiomyopathy. He is undergoing hypothermic therapy at this point in time. We will begin a diltiazem drip to control his heart rate and I have given him Versed for seizures. Will also began enoxaparin for thromboembolic protection. The initial CT scan of his head revealed no acute events. Further recommendations will pend the outcome of the above interventions, and prognosis is very guarded at this point in time. MD RU Thakur/JONATHAN /2:53 PM /3:03 PM
[2017-03-03] MEDS ORDERED: PHENYLEPHRINE HCL 10 MG/ML VIAL ONE ×2 (15:28→17:35)
--- NOTE | 2017-03-03 15:56 | PD.PROCEDR ---
Procedure Note Procedure Diagnosis: S/P V. fib arrest Indications: Postarrest hypothermia protocol Consent: Obtained, scheduled with Anesthesia: see MAR Description of the Procedure: The patient was placed in the supine position. The area was prepped and draped sterilely. A 19g needle was inserted under negative pressure aspiration and dark venous blood was obtained on left femoral vein. Guidewire was inserted easily, incision was made with a #11blade. A dilator was placed, with noted difficulty threading catheter. Attempt on the left groin was removed. Right femoral was prepped and draped .A guidewire was inserted easily without resistance. A small incision was made using a #11 blade. Using a modified Seldinger technique, the dilator and hypothermia cool catheter were advanced over the guidewire without resistance. All ports were aspirated and flushed, and had brisk blood return. The line was secured at at the skin using 2-0 silk interrupted sutures. A Biopatch and Transparent sterile dressing were applied. There were no immediate complications noted. There was minimal EBL. The patient tolerated the procedure well. Right femoral vein hypothermia catheter Ultrasound Guidance: Ultrasound guidance was used to identify the left and right femoral vein. The vascular anatomy was normal. The vessel was cannulated under direct, real-time ultrasound visualization. After placement of the guidewire, confirmation of the guidewire in the lumen of the vessel was made using ultrasound visualization, before dilation of the tract. I personally performed the procedure. Cynthia Dodge MD Mar 03, 2017 15:56
[2017-03-03] MEDS ORDERED: SODIUM BICARBONATE 8.4% INJ 50 ML ONE (16:05)
[2017-03-03] MEDS ORDERED: SODIUM BICARBONATE 8.4% INJ 50 MEQ/50 ML SYR IV PUSH ONE ×2 (16:30→20:45)
[2017-03-03 16:39] LABS: REVIEW FLAG FINAL
[2017-03-03 16:41] LABS: BLOOD GAS BASE EXCESS -8.9 mmol/L (-2-2); BLOOD GAS CARBOXYHEMOGLOBIN 1.8 % (0-4); BLOOD GAS HCO3 19 mmol/L (22-26); BLOOD GAS O2 HGB SATURATION 88 % (90-100); BLOOD GAS OXYGEN CONTENT 18.7 Vol % (12.0-20.0); BLOOD GAS PCO2 56 mmHg (38-42); BLOOD GAS PO2 76 mmHg (61-120); BLOOD GAS TOTAL HGB 15.1 G/DL (12.0-16.0); TEMP CORR TO 98.6
[2017-03-03 16:42] LABS: CRITICAL VALUE YES; DRAW SITE ART LINE; FIO2 100 %; OXYGEN DEVICE VENTILATOR; STAT NO; VENT SETTINGS AC 550/20/+8PEEP
--- NOTE | 2017-03-03 16:56 | ECHRPT ---
Indication: HEART FAILURE CONCLUSIONS The left ventricular systolic function is severely reduced with an estimated ejection fraction in th e range of 10-20%. Mild concentric left ventricular hypertrophy. Cmnl-ua-fsqvavlc mitral valve regurgitation. There is severe tricuspid regurgitation. The estimated pulmonary arterial pressure is 62 mmHg. There is estimated acnfjart-vs-[place] pulmonary hypertension present (range 60-70 mmHg). BP: 91 / 65 HR: 134 Rhythm: MEASUREMENTS (Male / Female) Normal Values Technical Quality: 2D ECHO LV Diastolic Diameter PLAX 5.6 cm 4.2 - 5.9 / 3.9 - 5.3 cm LV Systolic Diameter PLAX 5.0 cm IVS Diastolic Thickness 1.4 cm 0.6 - 1.0 / 0.6 - 0.9 cm LVPW Diastolic Thickness 1.3 cm 0.6 - 1.0 / 0.6 - 0.9 cm LV Relative Wall Thickness 0.5 LVOT Diameter 2.2 cm M-MODE Aortic Root Diameter MM 3.8 cm LA Systolic Diameter MM 5.3 cm LA Ao Ratio MM 1.4 AV Cusp Separation MM 2.3 cm DOPPLER AV Peak Velocity 170.0 cm/s AV Peak Gradient 11.6 mmHg LVOT Peak Velocity 76.0 cm/s LVOT Peak Gradient 2.3 mmHg AV Area Cont Eq pk 1.7 cm MR Peak Velocity 333.0 cm/s MR Peak Gradient 44.4 mmHg TR Peak Velocity 361.0 cm/s TR Peak Gradient 52.1 mmHg PV Peak Velocity 107.0 cm/s PV Peak Gradient 4.6 mmHg FINDINGS LEFT VENTRICLE The left ventricular systolic functthe left ventricular systolic function is severely reduced with a n estimated ejection fraction less than 20%. Mild concentric left ventricular hypertrophy. LEFT ATRIUM The left atrial size is moderately dilated. MITRAL VALVE Ebxw-rd-sctdcxld mitral valve regurgitation. TRICUSPID VALVE There is severe tricuspid regurgitation. The estimated pulmonary arterial pressure is 62 mmHg. There is estimated psndnahf-bh-piteyu pulmonary hypertension present (range 60-70 mmHg). Angela Parker MD, FACC (Electronically Signed) Final Date:03 March 2017 16:56
[2017-03-03] MEDS ORDERED: SODIUM BICARBONATE 8.4% SOLN 50 MEQ/50 ML VIAL IV ONE ×2 (17:00→17:15)
[2017-03-03] MEDS ORDERED: PHENYLEPHRINE 40 MG/D5W 496 ML ADMIX IV SCH ×2 (17:00)
[2017-03-03] MEDS ORDERED: PHENYLEPHRINE INJ 40 MG in SODIUM CHLORID 0.9% 500 ML INJ 496 ML IV SCH (17:04)
[2017-03-03] MEDS: INSULIN NovoLIN REGULAR SUPPLEMENTAL SCALE SQ SCH (17:16)
[2017-03-03] MEDS ORDERED: PHENYLEPHRINE HCL 160 MG/D5W 484 ML ADMIX IV SCH ×2 (17:45)
[2017-03-03] MEDS: FUROSEMIDE 40 MG/4 ML VIAL IV PUSH SCH (18:00)
--- NOTE | 2017-03-03 18:20 | EKG ---
Date Performed: 03/03/2017 Time Performed: 10:46:38 PTAGE: 56 years EKG: ATRIAL FIBRILLATION WITH ABERRANT CONDUCTION OR VENTRICULAR PREMATURE COMPLEXES Or ventricu lar demand pacemaker. COMPARED TO PRIOR ELECTROCARDIOGRAM, Conduction defect is present. PREVIOUS TRACING : 03/31/2013 11.24 DOCTOR: Emeka Barrios Interpretating Date/Time 03/03/2017 18:19:04
[2017-03-03] MEDS: NOREPINEPHRINE INJ 4 MG in SODIUM CHLOR 0.9% 250 ML INJ 246 ML IV SCH ×2 (18:55→23:25)
[2017-03-03] MEDS: VASOPRESSIN INJ 40 UNITS in SODIUM CHLORIDE 0.9% INJ 98 ML IV SCH (18:55)
[2017-03-03] MEDS: PHENYLEPHRINE INJ 160 MG in SODIUM CHLORID 0.9% 500 ML INJ 484 ML IV SCH (18:56)
[2017-03-03] MEDS: MIDAZOLAM 100 MG/ML INJ 100 ML IV SCH (19:22)
[2017-03-03] MEDS: CISATRACURIUM INJ 100 MG in SODIUM CHLOR 0.9% 250 ML INJ 240 ML IV SCH ×2 (19:22→23:25)
[2017-03-03] MEDS: DILTIAZEM INJ 125 MG in SODIUM CHLORIDE 0.9% INJ 100 ML IV SCH ×2 (19:23→23:26)
[2017-03-03] MEDS: CHLORHEXIDINE 0.12% (ORAL KIT) 15 ML CUP MT SCH (20:00)
[2017-03-03] MEDS: SODIUM CHLORIDE 0.9% FLUSH 10 ML FLUSH IV FLUSH SCH (21:00)
[2017-03-03] MEDS: RESP: ALBUTEROL 2.5 MG/IPRATROPIUM 0.5 MG NEB (SCH) INH (21:53)
[2017-03-03] MEDS: FAMOTIDINE 20 MG TAB PO SCH (23:01)
[2017-03-03] MEDS: DOCUSATE SODIUM 50 MG/SENNA 8.6 MG TAB PO SCH (23:01)
[2017-03-03] MEDS: DOBUTamine INJ 1,000 MG in SODIUM CHLOR 0.9% 250 ML INJ 170 ML IV SCH (23:10)
[2017-03-03] MEDS ORDERED: LIDOCAINE HCL 2% 100 MG/5 ML SYRINGE IV PUSH ONE (23:15)
[2017-03-03] MEDS ORDERED: SODIUM CHLOR 0.9% 1000 ML INJ 1,000 ML IV ONE (23:15)
[2017-03-03] MEDS ORDERED: LIDOCAINE HCL 2% 100 MG/5 ML SYRINGE ONE (23:17)
[2017-03-03] MEDS: ALBUMIN HUMAN 5% 25 GM/500 ML BOTTLE IV SCH (23:27)
[2017-03-03 23:56] LABS: BASOPHIL # 0.1 TH/MM3 (0-0.2); BASOPHIL % 0.3 % (0.0-2.0); EOSINOPHIL % 0.1 % (0.0-4.0); HEMATOCRIT 45.9 % (39.0-51.0); LYMPH % 3.4 % (9.0-44.0); LYMPHOCYTE # 0.7 TH/MM3 (1.0-4.8); MEAN CELL VOLUME 91.8 FL (80.0-100.0); MEAN CORPUSCULAR HEMOGLOBIN 30.2 PG (27.0-34.0); MEAN CORPUSCULAR HGB CONC 32.9 % (32.0-36.0); MONO % 9.5 % (0.0-8.0); NEUT % 86.7 % (16.0-70.0); PLATELET COUNT 263 TH/MM3 (150-450); RED BLOOD COUNT 4.99 MIL/MM3 (4.50-5.90); RED CELL DISTRIBUTION WIDTH 16.2 % (11.6-17.2); WHITE BLOOD COUNT 19.6 TH/MM3 (4.0-11.0)
[2017-03-03 23:57] LABS: HEMO FLAGS AUTO DIFF
[2017-03-04] VITALS (15 sets, daily range): BP systolic 70–105; BP diastolic 50–74; PULSE 68–98; RESP 22; TEMP 91.4–92; O2SAT 89–92
[2017-03-04 00:11] LABS: BICARBONATE 17.3 MEQ/L (21.0-32.0); MAGNESIUM 2.1 MG/DL (1.5-2.5); POTASSIUM 3.6 MEQ/L (3.5-5.1)
[2017-03-04] MEDS: INSULIN NovoLIN REGULAR SUPPLEMENTAL SCALE SQ SCH ×5 (00:19→20:28)
[2017-03-04 00:22] LABS: SCAN/DIFF AUTO DIFF CONFIRMED
[2017-03-04] MEDS: RESP: ALBUTEROL 2.5 MG/IPRATROPIUM 0.5 MG NEB (SCH) INH ×5 (03:16→22:08)
[2017-03-04] MEDS: CHLORHEXIDINE GLUCONATE 2 % 1 PACK (2 CLOTHS) TOP SCH (04:00)
--- NOTE | 2017-03-04 04:32 | RADRPT ---
EXAM DATE/TIME: 03/04/2017 03:53 [facility] COMPARISON: CHEST SINGLE AP, March 03, 2017, 11:29. INDICATIONS : Shortness of breath. MEDICAL HISTORY : Hypertension. Cardiovascular disease SURGICAL HISTORY : Unobtainable ENCOUNTER: Subsequent ACUITY: 2 days PAIN SCORE: Non-responsive. LOCATION: Bilateral chest FINDINGS: Lines and tubes are present not significantly changed. There is worsening pulmonary edema since the p rior exam. Cardiomegaly is stable not changed. Left pleural effusion is difficult to exclude. CONCLUSION: Worsening pulmonary edema. Lillian Hernandez MD on March 04, 2017 at 4:29 Board Certified Radiologist. This report was verified electronically.
[2017-03-04] MEDS: PHENYLEPHRINE INJ 160 MG in SODIUM CHLORID 0.9% 500 ML INJ 484 ML IV SCH ×2 (04:50→17:59)
[2017-03-04 05:50] LABS: AUTOMATED NEUTROPHIL # 12.2 TH/MM3 (1.8-7.7); BASOPHIL % 0.3 % (0.0-2.0); EOSINOPHIL % 0.2 % (0.0-4.0); HEMATOCRIT 43.5 % (39.0-51.0); HEMO FLAGS DIFF FINAL; LYMPH % 8.4 % (9.0-44.0); LYMPHOCYTE # 1.3 TH/MM3 (1.0-4.8); MEAN CELL VOLUME 91.3 FL (80.0-100.0); MEAN CORPUSCULAR HEMOGLOBIN 29.6 PG (27.0-34.0); MEAN CORPUSCULAR HGB CONC 32.4 % (32.0-36.0); MONO % 10.3 % (0.0-8.0); NEUT % 80.8 % (16.0-70.0); PLATELET COUNT 189 TH/MM3 (150-450); RED BLOOD COUNT 4.77 MIL/MM3 (4.50-5.90); RED CELL DISTRIBUTION WIDTH 16.2 % (11.6-17.2); WHITE BLOOD COUNT 15.1 TH/MM3 (4.0-11.0)
[2017-03-04] MEDS: ALBUMIN HUMAN 5% 25 GM/500 ML BOTTLE IV SCH ×3 (05:50→18:56)
[2017-03-04 05:55] LABS: BLOOD GAS BASE EXCESS -6.4 mmol/L (-2-2); BLOOD GAS CARBOXYHEMOGLOBIN 1.3 % (0-4); BLOOD GAS HCO3 20 mmol/L (22-26); BLOOD GAS METHEMOGLOBIN 1.2 % (0-2); BLOOD GAS O2 HGB SATURATION 88 % (90-100); BLOOD GAS OXYGEN CONTENT 17.7 Vol % (12.0-20.0); BLOOD GAS PCO2 46 mmHg (38-42); BLOOD GAS PO2 70 mmHg (61-120); BLOOD GAS TOTAL HGB 14.3 G/DL (12.0-16.0); CRITICAL VALUE YES; TEMP CORR TO 98.6
[2017-03-04 05:56] LABS: DRAW SITE ART LINE; FIO2 100 %; OXYGEN DEVICE VENTILATOR; STAT NO; VENT SETTINGS PRVC/AC
[2017-03-04 06:04] LABS: APTT (PATIENT) 38.6 SEC (24.3-30.1); INTERNATIONAL NORMALIZED RATIO 2.2 RATIO; PROTHROMBIN TIME - PATIENT 25.4 SEC (9.8-11.6)
[2017-03-04 06:30] LABS: BICARBONATE 19.9 MEQ/L (21.0-32.0); CALCIUM-PROTEIN CORRECTED 8.1 MG/DL (8.5-10.1); MAGNESIUM 1.9 MG/DL (1.5-2.5); POTASSIUM 3.3 MEQ/L (3.5-5.1); TOTAL BILIRUBIN ADULT 2.1 MG/DL (0.2-1.0)
[2017-03-04] MEDS ORDERED: BUMETANIDE INJ 1 MG/4 ML VIAL IV ONE (06:30)
[2017-03-04] MEDS: VASOPRESSIN INJ 40 UNITS in SODIUM CHLORIDE 0.9% INJ 98 ML IV SCH ×2 (06:50→21:13)
[2017-03-04] MEDS: CISATRACURIUM INJ 100 MG in SODIUM CHLOR 0.9% 250 ML INJ 240 ML IV SCH ×3 (06:50→20:40)
[2017-03-04] MEDS: NOREPINEPHRINE INJ 4 MG in SODIUM CHLOR 0.9% 250 ML INJ 246 ML IV SCH ×3 (06:50→17:59)
[2017-03-04] MEDS: POTASSIUM CHLOR 20 MEQ PREMIX 100 ML IV PRN ×5 (07:32→18:14)
[2017-03-04] MEDS ORDERED: SODIUM BICARBONATE 8.4% INJ 50 ML ONE (07:43)
--- NOTE | 2017-03-04 08:04 | PD.CARD.PN ---
Subjective Subjective Remarks events noted currently afib rate controlled + ectopy intubated multiple pressors Objective Medications Active Medications Acetaminophen (Tylenol 650 Mg/ 20 ml Liq) 650 mg Q6H PRN NG; Start 03/03/17 at 13:00 Albumin Human 25 gm 25 gm Q6H IV Last administered on 03/04/17 05:50; Admin Dose 25 GM; Start 03/04/17 at 00:00; Stop 03/04/17 at 18:01 Artificial Tears (Tears Naturale Opth Soln) 1 drop TID EACH EYE; Start 03/03/17 at 13:00 Artificial Tears 1 applic 1 applic Q4H PRN EACH EYE; Start 03/03/17 at 13:00 Bisacodyl (Dulcolax Supp) 10 mg DAILY PRN RECTAL; Start 03/03/17 at 12:00 Bumetanide 1 mg 1 mg NOW ONCE IV Last administered on 03/04/17 06:31; Admin Dose 1 MG; Start 03/04/17 at 06:30; Stop 03/04/17 at 06:31; Status DC Buspirone HCl 15 mg 15 mg BID PRN NG; Start 03/03/17 at 13:00 Chlorhexidine Gluconate (Chlorhexidine 2% Cloth) 3 pack UNSCH PRN TOP; Start at 12:00 Chlorhexidine Gluconate (Chlorhexidine 2% Cloth) 3 pack Taper DAILY@04 TOP; Start 03/04/17 at 04:00; Stop 02/28/18 at 03:59 Chlorhexidine Gluconate (Peridex 0.12% Liq) 15 ml BID@08,20 MT Last administered on 03/03/17 20:00; Admin Dose 15 ML; Start 03/03/17 at 20:00 Cisatracurium Besylate/Sodium Chloride (Nimbex Inj/NS 250 ml Inj) 250 ml @ 0 mls /hr TITRATE IV Last administered on 03/04/17 06:50; Admin Dose 0 MLS/HR; Start 03/03/17 at 13:30 Dextrose (D50w (Vial) Inj) 50 ml UNSCH PRN IV; Start 03/03/17 at 12:00 Diltiazem HCl (Cardizem Inj) 25 mg STK-MED ONCE .ROUTE; Start 03/03/17 at 14:29 ; Stop 03/03/17 at 14:30; Status DC Diltiazem HCl 10 mg 10 mg ONCE ONCE IV Last administered on 03/03/17 16:27; Admin Dose 10 MG; Start 03/03/17 at 15:00; Stop 03/03/17 at 15:01; Status DC Diltiazem HCl/ Sodium Chloride (Cardizem Inj/NS Inj) 125 ml @ 0 mls/hr TITRATE IV Last administered on 03/03/17 23:26; Admin Dose 0 MLS/HR; Start 03/03/17 at 15:00 Dobutamine HCl/ Sodium Chloride (Dobutrex Inj/NS 250 ml Inj) 250 ml @ 4.12 mls/ hr CONTINUOUS IV Last administered on 03/03/17 23:10; Admin Dose 4.12 MLS/HR; Start 03/03/17 at 23:00 Enoxaparin Sodium (Lovenox Inj) 110 mg Q12H SQ; Start 03/03/17 at 15:00; Status Hold Famotidine (Pepcid) 20 mg Q12HR PO Last administered on 03/03/17 23:01; Admin Dose 20 MG; Start 03/03/17 at 21:00 Fentanyl Citrate (fentaNYL DRIP) 250 ml @ 0 mls/hr TITRATE IV Last administered on 03/03/17 13:57; Admin Dose 0 MLS/HR; Start 03/03/17 at 13:00 Furosemide (Lasix Inj) 40 mg BID@09,18 IV PUSH; Start 03/03/17 at 18:00 Glucagon 1 mg 1 mg UNSCH PRN OTHER; Start 03/03/17 at 12:00 IV Flush 2 ml 2 ml UNSCH PRN IV FLUSH; Start 03/03/17 at 11:00 Lactulose 30 ml 30 ml DAILY PRN PO; Start 03/03/17 at 12:00 Lidocaine HCl (Xylocaine 2% Inj) 100 mg ONCE ONCE IV PUSH Last administered on 03/03/17 23:24; Admin Dose 100 MG; Start 03/03/17 at 23:15; Stop 03/03/17 at 23 :17; Status DC Lidocaine HCl (Xylocaine 2% Inj) 100 mg STK-MED ONCE .ROUTE; Start 03/03/17 at 23:17; Stop 03/03/17 at 23:18; Status DC Lorazepam 1 mg 1 mg Q1H PRN IV; Start 03/03/17 at 13:00 Magnesium Hydroxide (Milk Of Magnaugustine Liq) 30 ml Q12H PRN PO; Start 03/03/17 at 12:00 Magnesium Oxide 800 mg 800 mg UNSCH PRN PO; Start 03/03/17 at 12:00 Magnesium Sulfate/ Sodium Chloride (Magnesium Sulfate Inj/NS 250 ml Inj) 250 ml @ 62.5 mls/hr Q4H PRN IV; Start 03/03/17 at 13:00 Magnesium Sulfate/ Sodium Chloride (Magnesium Sulfate Inj/NS Inj) 100 ml @ 50 mls/hr UNSCH PRN IV; Start 03/03/17 at 12:00 Magnesium Sulfate/ Sodium Chloride (Magnesium Sulfate Inj/NS Inj) 100 ml @ 50 mls/hr UNSCH PRN IV; Start 03/03/17 at 12:00 Meperidine HCl 25 mg 25 mg Q2H PRN IVP; Start 03/03/17 at 13:00 Midazolam HCl 100 ml @ 0 mls/hr TITRATE IV Last administered on 03/03/17 19:22 ; Admin Dose 0 MLS/HR; Start 03/03/17 at 13:00 Midazolam HCl (Versed Inj) 2 mg ONCE ONCE IV PUSH; Start 03/03/17 at 15:00; Stop 03/03/17 at 15:01; Status DC Midazolam HCl (Versed Inj) 5 mg STK-MED ONCE .ROUTE Last administered on 16:27; Admin Dose 5 MG; Start 03/03/17 at 14:28; Stop 03/03/17 at 14:29; Status DC Midazolam HCl 5 mg 5 mg STK-MED ONCE .ROUTE Last administered on 03/03/17 11:15 ; Admin Dose 5 MG; Start 03/03/17 at 11:06; Stop 03/03/17 at 11:07; Status DC Miscellaneous Information 0 ml @ 0 mls/hr UNSCH IV; Start 03/03/17 at 13:00 Miscellaneous Information 1 [id number] XX; Start 03/03/17 at 12:00 Norepinephrine Bitartrate (Levophed-Dextrose Drip) 250 ml @ 0 mls/hr TITRATE IV ; Start 03/03/17 at 12:15; Stop 03/03/17 at 13:53; Status DC Norepinephrine Bitartrate 4 mg/ Sodium Chloride 250 ml @ 0 mls/hr TITRATE IV Last administered on 03/04/17 06:50; Admin Dose 0 MLS/HR; Start 03/03/17 at 13: 00 Ondansetron HCl (Zofran Inj) 4 mg Q6H PRN IV; Start 03/03/17 at 12:00 Phenylephrine HCl (Neosynephrine Inj) 10 mg STK-MED ONCE .ROUTE Last administered on 03/03/17 15:28; Admin Dose 10 MG; Start 03/03/17 at 15:28; Stop 03/03/17 at 15:29; Status DC Phenylephrine HCl 10 mg 10 mg STK-MED ONCE .ROUTE; Start 03/03/17 at 17:35; Stop 03/03/17 at 17:36; Status DC Phenylephrine HCl 160 mg/Dextrose 500 ml @ 0 mls/hr TITRATE IV; Start 03/03/17 at 17:45; Stop 03/03/17 at 18:02; Status DC Phenylephrine HCl 160 mg/Sodium Chloride 500 ml @ 0 mls/hr TITRATE IV Last administered on 03/04/17 04:50; Admin Dose 0 MLS/HR; Start 03/03/17 at 18:02 Phenylephrine HCl/ Dextrose (Neosynephrine Inj/D5W 500 ml Inj) 500 ml @ 0 mls/ hr TITRATE IV; Start 03/03/17 at 17:00; Stop 03/03/17 at 17:04; Status DC Phenylephrine HCl/ Sodium Chloride (Neosynephrine Inj/NS 500 ml Inj) 500 ml @ 0 mls/hr TITRATE IV; Start 03/03/17 at 17:04; Stop 03/03/17 at 17:41; Status DC Potassium Phosphate 2000 mg 2,000 mg Q4H PRN PO; Start 03/03/17 at 12:00 Potassium Phosphate 2000 mg 2,000 mg UNSCH PRN PO/TUBE; Start 03/03/17 at 12:00 Potassium Phosphate/Sodium Chloride (Potassium Phosphate Inj/NS 250 ml Inj) 260 ml @ 42 mls/hr UNSCH PRN IV; Start 03/03/17 at 12:00 Potassium Bicarb/ Potassium Chloride 50 meq 50 meq UNSCH PRN PO; Start at 12:00 Potassium Chloride 100 ml @ 25 mls/hr UNSCH PRN IV; Start 03/03/17 at 12:00 Potassium Chloride 100 ml @ 50 mls/hr Q2H PRN IV Last administered on 07:32; Admin Dose 50 MLS/HR; Start 03/03/17 at 12:00 Potassium Chloride 100 ml @ 50 mls/hr Q2H PRN IV; Start 03/03/17 at 12:00 Potassium Chloride (KCl 20 Meq Premix Inj) 100 ml @ 50 mls/hr Q2H PRN IV; Start 03/03/17 at 12:00 Propofol (Diprivan 1000 Mg/100ml Inj) 100 ml @ As Directed STK-MED ONCE .ROUTE ; Start 03/03/17 at 11:01; Stop 03/03/17 at 11:02; Status DC Senna/Docusate Sodium (Keyana-Colace) 1 tab BID PO Last administered on 03/03/17 23:01; Admin Dose 1 TAB; Start 03/03/17 at 21:00 Sennosides (Senokot) 17.2 mg Q12H PRN PO; Start 03/03/17 at 12:00 Sodium Bicarbonate 50 meq 50 meq NOW ONCE IV; Start 03/03/17 at 17:00; Stop at 17:01; Status DC Sodium Bicarbonate 50 meq 50 meq ONCE ONCE IV PUSH Last administered on 16:44; Admin Dose 50 MEQ; Start 03/03/17 at 16:30; Stop 03/03/17 at 16:31; Status DC Sodium Bicarbonate 50 meq 50 meq ONCE ONCE IV PUSH Last administered on 20:45; Admin Dose 50 MEQ; Start 03/03/17 at 20:45; Stop 03/03/17 at 20:49; Status DC Sodium Bicarbonate/ Sodium Chloride (Sodium Bicarbonate 8.4% Inj/NS 1000 ml Inj ) 1,000 ml @ 100 mls/hr Q10H IV Last administered on 03/03/17 23:25; Admin Dose 100 MLS/HR; Start 03/03/17 at 14:00 Sodium Bicarbonate (Sodium Bicarbonate 8.4% Inj) 50 ml @ As Directed STK-MED ONCE .ROUTE; Start 03/03/17 at 16:05; Stop 03/03/17 at 16:06; Status DC Sodium Bicarbonate (Sodium Bicarbonate 8.4% Inj) 50 ml @ As Directed STK-MED ONCE .ROUTE; Start 03/04/17 at 07:43; Stop 03/04/17 at 07:44; Status DC Sodium Bicarbonate (Sodium Bicarbonate 8.4% Inj) 100 meq NOW ONCE IV Last administered on 03/03/17 17:21; Admin Dose 100 MEQ; Start 03/03/17 at 17:15; Stop 03/03/17 at 17:16; Status DC Sodium Chloride 1,000 ml @ 1,000 mls/hr Q1H IV Last administered on 03/03/17 11:19; Admin Dose 1,000 MLS/HR; Start 03/03/17 at 10:52; Stop 03/03/17 at 11:51 ; Status DC Sodium Chloride (NS 1000 ml Inj) 1,000 ml @ 84 mls/hr [id number] IV Last administered on 03/03/17 12:21; Admin Dose 84 MLS/HR; Start 03/03/17 at 11:57; Stop 03/03/17 at 15:19; Status DC Sodium Chloride (NS 1000 ml Inj) 1,000 ml @ 999 mls/hr BOLUS ONCE IV Last administered on 03/03/17 23:15; Admin Dose 999 MLS/HR; Start 03/03/17 at 23:15 ; Stop 03/04/17 at 00:15; Status DC Sodium Chloride (NS Flush) 2 ml BID IV FLUSH; Start 03/03/17 at 21:00 Sodium Chloride (NS Flush) 2 ml UNSCH PRN IV FLUSH; Start 03/03/17 at 12:00 Sodium Phosphate/ Sodium Chloride (Sodium Phosphate Inj/NS 250 ml Inj) 250 ml @ 42 mls/hr UNSCH PRN IV; Start 03/03/17 at 12:00 Succinylcholine Chloride (Quelicin Inj) 200 mg STK-MED ONCE .ROUTE; Start at 14:55; Stop 03/03/17 at 14:56; Status DC Terbutaline Sulfate (Brethine Inj) 1 mg UNSCH PRN SQ; Start 03/03/17 at 12:15 Terbutaline Sulfate 1 mg 1 mg UNSCH PRN SQ; Start 03/03/17 at 17:00 Vasopressin/ Sodium Chloride (Pitressin Inj/ NS Inj) 100 ml @ 1.5 mls/hr Q24H IV Last administered on 03/04/17t 06:50; Admin Dose 1.5 MLS/HR; Start 03/03/17 at 18:23 Vital Signs / I&O Vital Signs Date Time Temp Pulse Resp B/P Pulse Ox O2 Delivery O2 Flow Rate FiO2 03/04/17 07:56 87 03/04/17 07:56 91.4 68 22 86/61 92 03/04/17 07:53 100 03/04/17 03:17 91 100 03/04/17 03:00 87 03/04/17 03:00 100 03/04/17 03:00 91.4 68 22 74/52 89 03/04/17 00:51 92 100 03/03/17 23:00 100 03/03/17 23:00 91 03/03/17 23:00 91.0 91 22 76/62 92 03/03/17 22:55 94 100 03/03/17 20:30 93 100 03/03/17 19:00 94 03/03/17 19:00 93.3 100 22 82/63 93 03/03/17 19:00 100 03/03/17 18:00 116 03/03/17 17:00 128 03/03/17 16:05 90 100 03/03/17 16:00 131 03/03/17 15:45 89 100 03/03/17 15:00 100.0 145 18 110/74 89 124/85 03/03/17 15:00 100 03/03/17 15:00 145 03/03/17 14:20 89 100 03/03/17 14:19 66 03/03/17 13:19 131 12 108/71 94 Auto-Vent 03/03/17 13:11 94 100 03/03/17 12:42 100 03/03/17 12:41 124 12 91/65 94 Auto-Vent 03/03/17 12:00 134 12 102/68 95 Auto-Vent 03/03/17 11:30 109 12 95/69 Auto-Vent 03/03/17 11:13 116 12 100/74 100 Auto-Vent 03/03/17 11:00 129 12 93/62 Auto-Vent 03/03/17 11:00 0 12 03/03/17 11:00 94 100 03/03/17 10:33 94 15.00 100 I/O 03/03/17 03/03/17 03/03/17 03/04/17 03/04/17 03/04/17 07:00 15:00 23:00 07:00 15:00 23:00 Intake Total 865 ml 5441 ml Output Total 63 ml 12 ml Balance 802 ml 5429 ml Intake IV Total 865 ml 4381 ml Albumin 1000 ml Tube Irrigant 60 ml Output Urine Total 63 ml 12 ml Gastric Drainage Total 0 ml # Bowel Movements 0 Physical Exam CARDIOVASCULAR: Irregular + ectopy RESPIRATORY: Breath sounds equal bilaterally. No accessory muscle use. GASTROINTESTINAL: Abdomen soft, distended. Laboratory Laboratory Tests Test 03/03/17 03/03/17 03/03/17 03/03/17 11:10 11:30 11:35 13:24 White Blood Count 12.3 TH/MM3 Red Blood Count 4.87 MIL/MM3 Hemoglobin 14.6 GM/DL Hematocrit 44.5 % Mean Corpuscular Volume 91.3 FL Mean Corpuscular Hemoglobin 30.0 PG Mean Corpuscular Hemoglobin 32.8 % Concent Red Cell Distribution Width 15.7 % Platelet Count 248 TH/MM3 Mean Platelet Volume 8.5 FL Neutrophils (%) (Auto) 85.6 % Lymphocytes (%) (Auto) 7.9 % Monocytes (%) (Auto) 4.8 % Eosinophils (%) (Auto) 1.2 % Basophils (%) (Auto) 0.5 % Neutrophils # (Auto) 10.6 TH/MM3 Lymphocytes # (Auto) 1.0 TH/MM3 Monocytes # (Auto) 0.6 TH/MM3 Eosinophils # (Auto) 0.2 TH/MM3 Basophils # (Auto) 0.1 TH/MM3 CBC Comment AUTO DIFF Differential Total Cells 100 Counted Neutrophils % (Manual) 64 % Band Neutrophils % 10 % Lymphocytes % 8 % Monocytes % 6 % Eosinophils % 1 % Neutrophils # (Manual) 10.5 TH/MM3 Metamyelocytes 9 % Myelocytes 2 % Differential Comment FINAL DIFF MANUAL Platelet Estimate NORMAL Platelet Morphology Comment NORMAL [place] Cells 1+ Prothrombin Time 17.0 SEC Prothromb Time International 1.5 RATIO Ratio Activated Partial 34.4 SEC Thromboplast Time Urine Color ORANGE Urine Turbidity CLEAR Urine pH 5.5 Urine Specific [place] 1.022 Urine Protein TRACE mg/dL Urine Glucose (UA) NEG mg/dL Urine Ketones NEG mg/dL Urine Occult Blood SMALL Urine Nitrite NEG Urine Bilirubin NEG Urine Urobilinogen 4.0 MG/DL Urine Leukocyte Esterase NEG Urine RBC 7 /hpf Urine WBC 2 /hpf Urine Squamous Epithelial <1 /hpf Cells Urine Hyaline Casts 16 /lpf Urine Mucus FEW /lpf Urine Sperm RARE Microscopic Urinalysis Comment CATH-CULT NOT IND Sodium Level 134 MEQ/L Potassium Level 3.9 MEQ/L Chloride Level 99 MEQ/L Carbon Dioxide Level 18.9 MEQ/L Anion Gap 16 MEQ/L Blood Urea Nitrogen 29 MG/DL Creatinine 1.41 MG/DL Estimat Glomerular Filtration 52 ML/MIN Rate Random Glucose 121 MG/DL Calcium Level 8.0 MG/DL Phosphorus Level 7.1 MG/DL Magnesium Level 2.1 MG/DL Total Bilirubin 1.6 MG/DL Aspartate Amino Transf 53 U/L (AST/SGOT) Alanine Aminotransferase 39 U/L (ALT/SGPT) Alkaline Phosphatase 111 U/L Total Creatine Kinase 99 U/L Troponin I 0.59 NG/ML Total Protein 6.5 GM/DL Albumin 2.9 GM/DL Urine Opiates Screen NEG Urine Barbiturates Screen NEG Urine Amphetamines Screen NEG Urine Benzodiazepines Screen NEG Urine Cocaine Screen NEG Urine Cannabinoids Screen NEG Blood Type O NEGATIVE Antibody Screen NEGATIVE Blood Bank Comment Blood Gas Puncture Site ARTLINE Blood Gas Patient Temperature 98.6 Blood Gas HCO3 16 mmol/L Blood Gas Base Excess -12.0 mmol/L Blood Gas Oxygen Saturation 89 % Arterial Blood pH 7.11 Arterial Blood Partial 53 mmHg Pressure CO2 Arterial Blood Partial 95 mmHG Pressure O2 Arterial Blood Oxygen Content 18.9 Vol % Arterial Blood 3.8 % Carboxyhemoglobin Arterial Blood Methemoglobin 1.0 % Blood Gas Hemoglobin 15.1 G/DL Oxygen Delivery Device VENT Blood Gas Ventilator Setting AC16/550/+5/100 Blood Gas Inspired Oxygen 100 % Lactic Acid Level 6.0 mmol/L Test 03/03/17 03/03/17 03/03/17 03/03/17 16:25 16:30 18:25 23:40 Hemoglobin 14.7 GM/DL 15.1 GM/DL Hematocrit 46.0 % 45.9 % Blood Gas Puncture Site ART LINE Blood Gas Patient Temperature 98.6 Blood Gas HCO3 19 mmol/L Blood Gas Base Excess -8.9 mmol/L Blood Gas Oxygen Saturation 88 % Arterial Blood pH 7.15 Arterial Blood Partial 56 mmHg Pressure CO2 Arterial Blood Partial 76 mmHg Pressure O2 Arterial Blood Oxygen Content 18.7 Vol % Arterial Blood 1.8 % Carboxyhemoglobin Arterial Blood Methemoglobin 1.0 % Blood Gas Hemoglobin 15.1 G/DL Oxygen Delivery Device VENTILATOR Blood Gas Ventilator Setting AC 550/20/+8PEEP Blood Gas Inspired Oxygen 100 % Nasal Screen MRSA (PCR) MRSA NOT DETECTED White Blood Count 19.6 TH/MM3 Red Blood Count 4.99 MIL/MM3 Mean Corpuscular Volume 91.8 FL Mean Corpuscular Hemoglobin 30.2 PG Mean Corpuscular Hemoglobin 32.9 % Concent Red Cell Distribution Width 16.2 % Platelet Count 263 TH/MM3 Mean Platelet Volume 8.9 FL Neutrophils (%) (Auto) 86.7 % Lymphocytes (%) (Auto) 3.4 % Monocytes (%) (Auto) 9.5 % Eosinophils (%) (Auto) 0.1 % Basophils (%) (Auto) 0.3 % Neutrophils # (Auto) 17.0 TH/MM3 Lymphocytes # (Auto) 0.7 TH/MM3 Monocytes # (Auto) 1.9 TH/MM3 Eosinophils # (Auto) 0.0 TH/MM3 Basophils # (Auto) 0.1 TH/MM3 CBC Comment AUTO DIFF Differential Comment AUTO DIFF CONFIRMED Sodium Level 138 MEQ/L Potassium Level 3.6 MEQ/L Chloride Level 100 MEQ/L Carbon Dioxide Level 17.3 MEQ/L Anion Gap 21 MEQ/L Blood Urea Nitrogen 40 MG/DL Creatinine 1.96 MG/DL Estimat Glomerular Filtration 36 ML/MIN Rate Random Glucose 211 MG/DL Calcium Level 7.5 MG/DL Phosphorus Level 6.9 MG/DL Magnesium Level 2.1 MG/DL Test 03/04/17 03/04/17 03/04/17 05:30 05:35 05:48 Prothrombin Time 25.4 SEC Prothromb Time International 2.2 RATIO Ratio Activated Partial 38.6 SEC Thromboplast Time Fibrinogen 429 mg/dL White Blood Count 15.1 TH/MM3 Red Blood Count 4.77 MIL/MM3 Hemoglobin 14.1 GM/DL Hematocrit 43.5 % Mean Corpuscular Volume 91.3 FL Mean Corpuscular Hemoglobin 29.6 PG Mean Corpuscular Hemoglobin 32.4 % Concent Red Cell Distribution Width 16.2 % Platelet Count 189 TH/MM3 Mean Platelet Volume 9.1 FL Neutrophils (%) (Auto) 80.8 % Lymphocytes (%) (Auto) 8.4 % Monocytes (%) (Auto) 10.3 % Eosinophils (%) (Auto) 0.2 % Basophils (%) (Auto) 0.3 % Neutrophils # (Auto) 12.2 TH/MM3 Lymphocytes # (Auto) 1.3 TH/MM3 Monocytes # (Auto) 1.6 TH/MM3 Eosinophils # (Auto) 0.0 TH/MM3 Basophils # (Auto) 0.0 TH/MM3 CBC Comment DIFF FINAL Differential Comment Sodium Level 138 MEQ/L Potassium Level 3.3 MEQ/L Chloride Level 100 MEQ/L Carbon Dioxide Level 19.9 MEQ/L Anion Gap 18 MEQ/L Blood Urea Nitrogen 44 MG/DL Creatinine 2.02 MG/DL Estimat Glomerular Filtration 35 ML/MIN Rate Random Glucose 290 MG/DL Calcium Level 7.3 MG/DL Protein Corrected Calcium 8.1 MG/DL Phosphorus Level 6.5 MG/DL Magnesium Level 1.9 MG/DL Total Bilirubin 2.1 MG/DL Aspartate Amino Transf 132 U/L (AST/SGOT) Alanine Aminotransferase 77 U/L (ALT/SGPT) Alkaline Phosphatase 87 U/L Total Protein 5.7 GM/DL Albumin 2.6 GM/DL Blood Gas Puncture Site ART LINE Blood Gas Patient Temperature 98.6 Blood Gas HCO3 20 mmol/L Blood Gas Base Excess -6.4 mmol/L Blood Gas Oxygen Saturation 88 % Arterial Blood pH 7.25 Arterial Blood Partial 46 mmHg Pressure CO2 Arterial Blood Partial 70 mmHg Pressure O2 Arterial Blood Oxygen Content 17.7 Vol % Arterial Blood 1.3 % Carboxyhemoglobin Arterial Blood Methemoglobin 1.2 % Blood Gas Hemoglobin 14.3 G/DL Oxygen Delivery Device VENTILATOR Blood Gas Ventilator Setting PRVC/AC Blood Gas Inspired Oxygen 100 % Imaging Last Impressions Chest X-Ray 03/04/17 0600 Signed Impressions: Service Date/Time: Saturday, March 04, 2017 03:53 - CONCLUSION: Worsening pulmonary edema. Lillian Hernandez MD Head CT 03/03/17 1052 Signed Impressions: Service Date/Time: Friday, March 03, 2017 12:02 - CONCLUSION: 1. High density ovoid lesion within the region of the sella/suprasellar cistern measuring 11 x 14 mm. This raises the possibility of anterior communicating artery aneurysm. CTA or MRA of the brain would be helpful for further evaluation of this finding. 2. No evidence of acute hemorrhage, acute infarct, mass effect or extra axial fluid collections. 3. Minimal periventricular white matter small vessel ischemic changes bilaterally. Ronaldo George MD ADDENDUM: The report was called to the emergency room staff immediately at 12:20 PM on 03/03/17. Ronaldo George MD Assessment and Plan Assessment and Plan NICM - EF 10-20% VF arrest at home multiple pressors multiorgan failure poor prognosis hypothermia protocol afib - on low dose cardizem. wean as HR tolerates James Akbar MD Mar 04, 2017 08:04
[2017-03-04] MEDS: CHLORHEXIDINE 0.12% (ORAL KIT) 15 ML CUP MT SCH ×2 (08:11→20:23)
[2017-03-04] MEDS: ARTIFICIAL TEARS OPTH SOLN 15 ML BTL EACH EYE SCH ×3 (09:00→17:58)
[2017-03-04] MEDS: SODIUM CHLORIDE 0.9% FLUSH 10 ML FLUSH IV FLUSH SCH ×2 (09:05→20:23)
[2017-03-04] MEDS: DOCUSATE SODIUM 50 MG/SENNA 8.6 MG TAB PO SCH ×2 (09:10→20:23)
[2017-03-04] MEDS: FAMOTIDINE 20 MG TAB PO SCH ×2 (09:10→20:23)
[2017-03-04] MEDS: FUROSEMIDE 40 MG/4 ML VIAL IV PUSH SCH ×2 (09:10→17:58)
[2017-03-04] MEDS ORDERED: ARTIFICIAL TEARS OPTH SOLN 15 ML BTL EACH EYE PRN (09:45)
[2017-03-04] MEDS ORDERED: GLUCAGON 1 MG/ML VIAL OTHER PRN (09:45)
[2017-03-04] MEDS ORDERED: DEXTROSE 50% IN WATER 50 ML VIAL(D50) IV PRN (09:45)
[2017-03-04] MEDS: SODIUM BICARBONATE 8.4% INJ 150 MEQ in SODIUM CHLOR 0.9% 1000 ML INJ 850 ML IV SCH ×2 (10:08→20:28)
--- NOTE | 2017-03-04 10:31 | PD.CONS ---
Consult Service Palliative Care Consult Requested By Dr. Dodge Primary Care Physician Is Dr. Saul Abreu Reason for Consultation a. To assist with evaluation and management of symptoms including: Dyspnea, anxiety, pain b. To assist medical decision maker(s) with: better understanding of current medical conditions; weighing benefits/burdens of medical treatment options; making medical treatment decisions. HPI History of Present Illness This is a 56 year old male who had a witnessed V. fib arrest at home. He does have a known history of nonischemic cardiomyopathy with previously documented ejection fraction of 20-25%. He was at home with his when his heard a sound and found him face first on the floor and called 911. She states she had tried to turn him and start CPR, however she was unable to move him and states he was down without resuscitative effort for at least 15 or more minutes prior to EMS arrival. When EMS arrived they found his rhythm to be fine ventricular fibrillation and defibrillated 1 at which time the patient went asystolic and developed PEA. He was intubated in the field, received 4 rounds of epinephrine, 100 mEq of bicarbonate and then ROSC prior to arriving at the ER. Upon arrival to the ER the patient was again found to be pulseless and CPR was initiated with full ACLS protocol, receiving 1 mg of epinephrine intravenously with continued CPR for 2 more minutes prior to ROSC. A code cool was called and patient transferred to the care of Dr. Dodge, the gum maker. Seizure activity was noted as are cool code was started and Dr. Dodge initiated fentanyl, Versed and cisatracurium to prevent seizures and shivering. He is seen in cardiac recovery unit, intubated, sedated on fentanyl and Versed with cisatracurium, on multiple vasopressors to include vasopressin, phenylephrine and norepinephrine. He is also receiving inotropic support with dobutamine. Consultations have been requested from nephrology and cardiology. ED findings * Laboratory: White count blood cells 19.6, hemoglobin 15.1, hematocrit 45.9, platelets 263, sodium 134, potassium 3.9, carbon dioxide 18.9, BUN 29, creatinine 1.41, calcium 8.0, phosphorus 7.1, magnesium 2.1, total bilirubin 1.6 , AST 53, troponin 0.59, albumin 2.9, lactic acid 6.0. Presenting ABG, pH 7.11 , PCO2 53, HCO3 16, base excess -12, PO2 95 on mechanical ventilation with 100% FiO2. Prothrombin time 17.0, INR 1.5, APTT 34.4, urinalysis and toxicology were negative. 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 No evidence of midline shift, mass lesion, hemorrhage or acute infarction. Chest x-ray shows satisfactory position of endotracheal nasogastric and central venous devices. Mild congestive changes with small right pleural effusion and right basilar airspace disease. * Echocardiogram shows a severely reduced ejection fraction in the range of 10- 20% with mild concentric left ventricular hypertrophy, mild to moderate mitral valve regurgitation, severe tricuspid regurgitation, pulmonary artery pressure 62 mmHg with estimated moderate to severe pulmonary hypertension (range 60-70 mmHg). Compared to previous echocardiogram done in 2013 where systolic function was 20-25% and mitral and tricuspid valves were both in the normal range there has been a significant decline of cardiac function. He is seen in CVICU intubated, sedated with cooling catheter. He is undergoing ultrasound of the lower extremity blood vessels. He is nonresponsive. Telemetry shows atrial fibrillation with a controlled ventricular response. Vital signs are blood pressure 99/66, heart rate 72, respiratory rate 22, oxygen saturation 92% on 100% FiO2. His overnight urine output was minimal at 75 mL. Laboratory studies this morning show a white blood cell count 15.1, hemoglobin 14.1, hematocrit 43.5, platelets 189, sodium 138, potassium 3.3, carbon dioxide 19.9, BUN 44, creatinine 2.0 to, total bilirubin 2.1, AST 132. Arterial blood gas shows pH 7.25, PCO2 46, PaO2 70, oxygen saturation 88%, HCO3 20, base excess -6.4, mechanically ventilated at [facility] 100% FiO2. Discussed with Dr. Dodge at bedside and at her request met jointly with the family for update and information regarding clinical status. . Function/Cognitive Trajectory A year ago he was able to finish, play golf and had few limitations. Over the past year he has become progressively more short of breath and sedentary having more difficulty being active. He follows with Dr. sands for cardiology and had previously seen Dr. Darnell Merino for pulmonology. He is disabled from his heart and lung disease with a steadily declining quality of life. . Review of Systems ROS Limitations: Clinical Condition, Intubated, Unresponsive Past Family Social History Coded Allergies: No Known Allergies (Verified , 03/03/17) Past Medical History Nonischemic cardiomyopathy ejection fraction 10-20 % Congestive heart failure Coronary artery disease Hypertension Atrial fibrillation Cardiomegaly Diabetes mellitus History of alcoholism Tobacco use COPD Severe tricuspid regurgitation Pulmonary hypertension Past Surgical History Cardiac catheterization 2012 Back surgery for discectomy around 1987 Left leg surgery with pins and rods Reported Medications Reported Meds & Active Scripts Active Active Prescriptions or Reported Medications Unobtainable Current Medications Medications (Trade) Dose Ordered Sig/Sarkis Route Start Time Stop Time Status Last Admin (NS Flush) 2 ml UNSCH PRN IV FLUSH 03/03/17 11:00 (NS Flush) 2 ml UNSCH PRN IV FLUSH 03/03/17 12:00 (NS Flush) 2 ml BID IV FLUSH 03/03/17 21:00 03/04/17 09:05 (Pepcid) 20 mg Q12HR PO 03/03/17 21:00 03/04/17 09:10 (Tears Naturale Opth Soln) 1 drop TID EACH EYE 03/03/17 13:00 (Zofran Inj) 4 mg Q6H PRN IV 03/03/17 12:00 Miscellaneous Information 1 Q361D XX 03/03/17 12:00 (Chlorhexidine 2% Cloth) 3 pack Taper DAILY@04 TOP 03/04/17 04:00 02/28/18 03:59 (Chlorhexidine 2% Cloth) 3 pack UNSCH PRN TOP 03/03/17 12:00 (Keyana-Colace) 1 tab BID PO 03/03/17 21:00 03/04/17 09:10 (Milk Of Magnesia Liq) 30 ml Q12H PRN PO 03/03/17 12:00 (Senokot) 17.2 mg Q12H PRN PO 03/03/17 12:00 (Dulcolax Supp) 10 mg DAILY PRN RECTAL 03/03/17 12:00 Lactulose 30 ml 30 ml DAILY PRN PO 03/03/17 12:00 Potassium Chloride 100 ml @ 50 mls/hr Q2H PRN IV 03/03/17 12:00 (KCl 20 Meq Premix Inj) 100 ml @ 50 mls/hr Q2H PRN IV 03/03/17 12:00 Potassium Bicarb/ Potassium Chloride 50 meq 50 meq UNSCH PRN PO 03/03/17 12:00 Potassium Chloride 100 ml @ 25 mls/hr UNSCH PRN IV 03/03/17 12:00 Potassium Chloride 100 ml @ 50 mls/hr Q2H PRN IV 03/03/17 12:00 03/04/17 09:35 (Magnesium Sulfate Inj/NS Inj) 100 ml @ 50 mls/hr UNSCH PRN IV 03/03/17 12:00 Magnesium Oxide 800 mg 800 mg UNSCH PRN PO 03/03/17 12:00 (Magnesium Sulfate Inj/NS Inj) 100 ml @ 50 mls/hr UNSCH PRN IV 03/03/17 12:00 Potassium Phosphate 2000 mg 2,000 mg Q4H PRN PO 03/03/17 12:00 (Sodium Phosphate Inj/NS 250 ml Inj) 250 ml @ 42 mls/hr UNSCH PRN IV 03/03/17 12:00 Potassium Phosphate 2000 mg 2,000 mg UNSCH PRN PO/TUBE 03/03/17 12:00 (Potassium Phosphate Inj/NS 250 ml Inj) 260 ml @ 42 mls/hr UNSCH PRN IV 03/03/17 12:00 (Peridex 0.12% Liq) 15 ml BID@08,20 MT 03/03/17 20:00 03/04/17 08:11 (D50w (Vial) Inj) 50 ml UNSCH PRN IV 03/03/17 12:00 (Glucagon Inj) 1 mg UNSCH PRN OTHER 03/03/17 12:00 (Brethine Inj) 1 mg UNSCH PRN SQ 03/03/17 12:15 Lorazepam 1 mg 1 mg Q1H PRN IV 03/03/17 13:00 Midazolam HCl 100 ml @ 0 mls/hr TITRATE IV 03/03/17 13:00 03/03/17 19:22 (fentaNYL DRIP) 250 ml @ 0 mls/hr TITRATE IV 03/03/17 13:00 03/03/17 13:57 Meperidine HCl 25 mg 25 mg Q2H PRN IVP 03/03/17 13:00 (Magnesium Sulfate Inj/NS 250 ml Inj) 250 ml @ 62.5 mls/hr Q4H PRN IV 03/03/17 13:00 (Tylenol 650 Mg/ 20 ml Liq) 650 mg Q6H PRN NG 03/03/17 13:00 Buspirone HCl 15 mg 15 mg BID PRN NG 03/03/17 13:00 (Nimbex Inj/NS 250 ml Inj) 250 ml @ 0 mls/hr TITRATE IV 03/03/17 13:30 03/04/17 06:50 Artificial Tears 1 applic 1 applic Q4H PRN EACH EYE 03/03/17 13:00 Miscellaneous Information 0 ml @ 0 mls/hr UNSCH IV 03/03/17 13:00 Norepinephrine Bitartrate 4 mg/ Sodium Chloride 250 ml @ 0 mls/hr TITRATE IV 03/03/17 13:00 03/04/17 06:50 Sodium Bicarbonate 150 meq/Sodium Chloride 1,000 ml @ 100 mls/hr Q10H IV 03/03/17 14:00 03/03/17 23:25 (Cardizem Inj/NS Inj) 125 ml @ 0 mls/hr TITRATE IV 03/03/17 15:00 03/03/17 23:26 (Lovenox Inj) 110 mg Q12H SQ 03/03/17 15:00 Hold (Lasix Inj) 40 mg BID@09,18 IV PUSH 03/03/17 18:00 03/04/17 09:10 Terbutaline Sulfate 1 mg 1 mg UNSCH PRN SQ 03/03/17 17:00 Phenylephrine HCl 160 mg/Sodium Chloride 500 ml @ 0 mls/hr TITRATE IV 03/03/17 18:02 03/04/17 04:50 Vasopressin 40 units/Sodium Chloride 100 ml @ 1.5 mls/hr Q24H IV 03/03/17 18:23 03/04/17 06:50 (Dobutrex Inj/NS 250 ml Inj) 250 ml @ 4.12 mls/hr CONTINUOUS IV 03/03/17 23:00 03/03/17 23:10 (Albumin 5% Inj) 25 gm Q6H IV 03/04/17 00:00 03/04/17 18:01 03/04/17 05:50 (D50w (Vial) Inj) 50 ml UNSCH PRN IV 03/04/17 09:45 (Glucagon Inj) 1 mg UNSCH PRN OTHER 03/04/17 09:45 (Tears Naturale Opth Soln) 1 drop Q4H PRN EACH EYE 03/04/17 09:45 UNV Family History Both parents are still alive, mother is 85 years old in poor health with mitral valve prolapse and angina. Father is 83 with severe Alzheimer's. Substance Use Tobacco: Smoked most of his life up to 3 packs per day. Quit intermittently but smoking until recently. Alcohol: History of fairly regular heavy alcohol use sometimes in a binge pattern. Known to go several weeks without alcohol without any symptoms. Prescription med abuse: No evidence of prescription drug abuse. Illicits: No evidence of illicit drug abuse. Psychosocial History He was born in [place] but moved to [place] as an infant where he spent most of his adult life. He enjoyed fishing and golf and reading. He loved all babies and was deeply involved with his grandchildren and children. He was known to have a very sharp sense of humor and loved a good discussion. Spiritual/Cultural Factors No Spiritual affiliation. Living Will: Never completed Health Care Surrogate: Never completed Durable Power of Red Cap: Never completed Physical Exam Vital Signs Date Time Temp Pulse Resp B/P Pulse Ox O2 Delivery O2 Flow Rate FiO2 03/04/17 07:59 91 100 03/04/17 07:56 87 03/04/17 07:56 91.4 68 22 86/61 92 03/04/17 07:53 100 03/04/17 03:17 91 100 03/04/17 03:00 87 03/04/17 03:00 100 03/04/17 03:00 91.4 68 22 74/52 89 03/04/17 00:51 92 100 03/03/17 23:00 100 03/03/17 23:00 91 03/03/17 23:00 91.0 91 22 76/62 92 03/03/17 22:55 94 100 03/03/17 20:30 93 100 03/03/17 19:00 94 03/03/17 19:00 93.3 100 22 82/63 93 03/03/17 19:00 100 03/03/17 18:00 116 03/03/17 17:00 128 03/03/17 16:05 90 100 03/03/17 16:00 131 03/03/17 15:45 89 100 03/03/17 15:00 100.0 145 18 110/74 89 124/85 03/03/17 15:00 100 03/03/17 15:00 145 03/03/17 14:20 89 100 03/03/17 14:19 66 03/03/17 13:19 131 12 108/71 94 Auto-Vent 03/03/17 13:11 94 100 03/03/17 12:42 100 03/03/17 12:41 124 12 91/65 94 Auto-Vent 03/03/17 12:00 134 12 102/68 95 Auto-Vent 03/03/17 11:30 109 12 95/69 Auto-Vent 03/03/17 11:13 116 12 100/74 100 Auto-Vent 03/03/17 11:00 129 12 93/62 Auto-Vent 03/03/17 11:00 0 12 03/03/17 11:00 94 100 03/03/17 10:33 94 15.00 100 03/03/17 03/04/17 19:00 07:00 Intake Total 865 ml 5441 ml Output Total 63 ml 12 ml Balance 802 ml 5429 ml Intake IV Total 865 ml 4381 ml Albumin 1000 ml Tube Irrigant 60 ml Output Urine Total 63 ml 12 ml Gastric Drainage Total 0 ml # Bowel Movements 0 Exam CONSTITUTIONAL/GENERAL: This is an adequately nourished patient, in no apparent distress. TUBES/LINES/DRAINS:Right IJ central line, right femoral cooling catheter. SKIN: No jaundice, rashes, or lesions. Ecchymoses on upper extremities. Skin temperature cool. Not diaphoretic. HEAD: Atraumatic. Normocephalic. EYES: Pupils 2 mm, nonreactive. ENT: Orally intubated NECK: Trachea midline. CARDIOVASCULAR: Regular rate and irregular rhythm without gallops, or rubs. 2/ 6 systolic ejection murmur. Peripheral pulses diminished RESPIRATORY/CHEST: Symmetric, unlabored respirations. Mechanically ventilated Breath sounds equal bilaterally. No wheezes, rales, or rhonchi. GASTROINTESTINAL: Abdomen distended, no bowel sounds. GENITOURINARY: Without palpable bladder distension. Farah catheter in place with minimal urine output. MUSCULOSKELETAL: Extremities with skin changes of peripheral vascular disease. NEUROLOGICAL: Intubated, sedated. PSYCHIATRIC: Intubated, sedated . Diagnostic Tests Laboratory Laboratory Tests Test 03/03/17 03/03/17 03/03/1717 11:10 11:30 11:35 13:24 White Blood Count 12.3 TH/MM3 (4.0-11.0) Red Blood Count 4.87 MIL/MM3 (4.50-5.90) Hemoglobin 14.6 GM/DL (13.0-17.0) Hematocrit 44.5 % (39.0-51.0) Mean Corpuscular Volume 91.3 FL (80.0-100.0) Mean Corpuscular Hemoglobin 30.0 PG (27.0-34.0) Mean Corpuscular Hemoglobin 32.8 % Concent (32.0-36.0) Red Cell Distribution Width 15.7 % (11.6-17.2) Platelet Count 248 TH/MM3 (150-450) Mean Platelet Volume 8.5 FL (7.0-11.0) Neutrophils (%) (Auto) 85.6 % (16.0-70.0) Lymphocytes (%) (Auto) 7.9 % (9.0-44.0) Monocytes (%) (Auto) 4.8 % (0.0-8.0) Eosinophils (%) (Auto) 1.2 % (0.0-4.0) Basophils (%) (Auto) 0.5 % (0.0-2.0) Neutrophils # (Auto) 10.6 TH/MM3 (1.8-7.7) Lymphocytes # (Auto) 1.0 TH/MM3 (1.0-4.8) Monocytes # (Auto) 0.6 TH/MM3 (0-0.9) Eosinophils # (Auto) 0.2 TH/MM3 (0-0.4) Basophils # (Auto) 0.1 TH/MM3 (0-0.2) CBC Comment AUTO DIFF Differential Total Cells 100 Counted Neutrophils % (Manual) 64 % (16-70) Band Neutrophils % 10 % (0-6) Lymphocytes % 8 % (9-44) Monocytes % 6 % (0-8) Eosinophils % 1 % (0-4) Neutrophils # (Manual) 10.5 TH/MM3 (1.8-7.7) Metamyelocytes 9 % (0-1) Myelocytes 2 % (0-0) Differential Comment FINAL DIFF MANUAL Platelet Estimate NORMAL (NORMAL) Platelet Morphology Comment NORMAL (NORMAL) Saundra Cells 1+ (NORMAL) Prothrombin Time 17.0 SEC (9.8-11.6) Prothromb Time International 1.5 RATIO Ratio Activated Partial 34.4 SEC Thromboplast Time (24.3-30.1) Urine Color ORANGE (YELLW/STRAW) Urine Turbidity CLEAR (CLEAR) Urine pH 5.5 (5.0-8.5) Urine Specific Foley 1.022 (1.002-1.035) Urine Protein TRACE mg/dL (NEG-TRACE) Urine Glucose (UA) NEG mg/dL (NEG) Urine Ketones NEG mg/dL (NEG) Urine Occult Blood SMALL (NEG) Urine Nitrite NEG (NEG) Urine Bilirubin NEG (NEG) Urine Urobilinogen 4.0 MG/DL (LESS THAN 2.0) Urine Leukocyte Esterase NEG (NEG) Urine RBC 7 /hpf (0-3) Urine WBC 2 /hpf (0-5) Urine Squamous Epithelial <1 /hpf (0-5) Cells Urine Hyaline Casts 16 /lpf (RARE) Urine Mucus FEW /lpf (OCC) Urine Sperm RARE (NONE) Microscopic Urinalysis Comment CATH-CULT NOT IND Sodium Level 134 MEQ/L (136-145) Potassium Level 3.9 MEQ/L (3.5-5.1) Chloride Level 99 MEQ/L (98-107) Carbon Dioxide Level 18.9 MEQ/L (21.0-32.0) Anion Gap 16 MEQ/L (5-15) Blood Urea Nitrogen 29 MG/DL (7-18) Creatinine 1.41 MG/DL (0.60-1.30) Estimat Glomerular Filtration 52 ML/MIN (>89) Rate Random Glucose 121 MG/DL (74-106) Calcium Level 8.0 MG/DL (8.5-10.1) Phosphorus Level 7.1 MG/DL (2.5-4.9) Magnesium Level 2.1 MG/DL (1.5-2.5) Total Bilirubin 1.6 MG/DL (0.2-1.0) Aspartate Amino Transf 53 U/L (15-37) (AST/SGOT) Alanine Aminotransferase 39 U/L (12-78) (ALT/SGPT) Alkaline Phosphatase 111 U/L (45-117) Total Creatine Kinase 99 U/L (39-308) Troponin I 0.59 NG/ML (0.02-0.05) Total Protein 6.5 GM/DL (6.4-8.2) Albumin 2.9 GM/DL (3.4-5.0) Urine Opiates Screen NEG (NEG) Urine Barbiturates Screen NEG (NEG) Urine Amphetamines Screen NEG (NEG) Urine Benzodiazepines Screen NEG (NEG) Urine Cocaine Screen NEG (NEG) Urine Cannabinoids Screen NEG (NEG) Blood Type O NEGATIVE Antibody Screen NEGATIVE Blood Bank Comment Blood Gas Puncture Site ARTLINE Blood Gas Patient Temperature 98.6 Blood Gas HCO3 16 mmol/L (22-26) Blood Gas Base Excess -12.0 mmol/L (-2-2) Blood Gas Oxygen Saturation 89 % (90-100) Arterial Blood pH 7.11 (7.380-7.420) Arterial Blood Partial 53 mmHg (38-42) Pressure CO2 Arterial Blood Partial 95 mmHG Pressure O2 (61-120) Arterial Blood Oxygen Content 18.9 Vol % (12.0-20.0) Arterial Blood 3.8 % (0-4) Carboxyhemoglobin Arterial Blood Methemoglobin 1.0 % (0-2) Blood Gas Hemoglobin 15.1 G/DL (12.0-16.0) Oxygen Delivery Device VENT Blood Gas Ventilator Setting AC16/550/+5/100 Blood Gas Inspired Oxygen 100 % Lactic Acid Level 6.0 mmol/L (0.4-2.0) Test 03/03/17 03/03/17 03/03/17 03/03/17 16:25 16:30 18:25 23:40 Hemoglobin 14.7 GM/DL 15.1 GM/DL (13.0-17.0) (13.0-17.0) Hematocrit 46.0 % 45.9 % (39.0-51.0) (39.0-51.0) Blood Gas Puncture Site ART LINE Blood Gas Patient Temperature 98.6 Blood Gas HCO3 19 mmol/L (22-26) Blood Gas Base Excess -8.9 mmol/L (-2-2) Blood Gas Oxygen Saturation 88 % (90-100) Arterial Blood pH 7.15 (7.380-7.420) Arterial Blood Partial 56 mmHg (38-42) Pressure CO2 Arterial Blood Partial 76 mmHg Pressure O2 (61-120) Arterial Blood Oxygen Content 18.7 Vol % (12.0-20.0) Arterial Blood 1.8 % (0-4) Carboxyhemoglobin Arterial Blood Methemoglobin 1.0 % (0-2) Blood Gas Hemoglobin 15.1 G/DL (12.0-16.0) Oxygen Delivery Device VENTILATOR Blood Gas Ventilator Setting AC 550/20/+8PEEP Blood Gas Inspired Oxygen 100 % Nasal Screen MRSA (PCR) MRSA NOT DETECTED (NOT DETECT) White Blood Count 19.6 TH/MM3 (4.0-11.0) Red Blood Count 4.99 MIL/MM3 (4.50-5.90) Mean Corpuscular Volume 91.8 FL (80.0-100.0) Mean Corpuscular Hemoglobin 30.2 PG (27.0-34.0) Mean Corpuscular Hemoglobin 32.9 % Concent (32.0-36.0) Red Cell Distribution Width 16.2 % (11.6-17.2) Platelet Count 263 TH/MM3 (150-450) Mean Platelet Volume 8.9 FL (7.0-11.0) Neutrophils (%) (Auto) 86.7 % (16.0-70.0) Lymphocytes (%) (Auto) 3.4 % (9.0-44.0) Monocytes (%) (Auto) 9.5 % (0.0-8.0) Eosinophils (%) (Auto) 0.1 % (0.0-4.0) Basophils (%) (Auto) 0.3 % (0.0-2.0) Neutrophils # (Auto) 17.0 TH/MM3 (1.8-7.7) Lymphocytes # (Auto) 0.7 TH/MM3 (1.0-4.8) Monocytes # (Auto) 1.9 TH/MM3 (0-0.9) Eosinophils # (Auto) 0.0 TH/MM3 (0-0.4) Basophils # (Auto) 0.1 TH/MM3 (0-0.2) CBC Comment AUTO DIFF Differential Comment AUTO DIFF CONFIRMED Sodium Level 138 MEQ/L (136-145) Potassium Level 3.6 MEQ/L (3.5-5.1) Chloride Level 100 MEQ/L (98-107) Carbon Dioxide Level 17.3 MEQ/L (21.0-32.0) Anion Gap 21 MEQ/L (5-15) Blood Urea Nitrogen 40 MG/DL (7-18) Creatinine 1.96 MG/DL (0.60-1.30) Estimat Glomerular Filtration 36 ML/MIN (>89) Rate Random Glucose 211 MG/DL (74-106) Calcium Level 7.5 MG/DL (8.5-10.1) Phosphorus Level 6.9 MG/DL (2.5-4.9) Magnesium Level 2.1 MG/DL (1.5-2.5) Test 03/04/17 03/04/17 03/04/17 05:30 05:35 05:48 Prothrombin Time 25.4 SEC (9.8-11.6) Prothromb Time International 2.2 RATIO Ratio Activated Partial 38.6 SEC Thromboplast Time (24.3-30.1) Fibrinogen 429 mg/dL (227-377) White Blood Count 15.1 TH/MM3 (4.0-11.0) Red Blood Count 4.77 MIL/MM3 (4.50-5.90) Hemoglobin 14.1 GM/DL (13.0-17.0) Hematocrit 43.5 % (39.0-51.0) Mean Corpuscular Volume 91.3 FL (80.0-100.0) Mean Corpuscular Hemoglobin 29.6 PG (27.0-34.0) Mean Corpuscular Hemoglobin 32.4 % Concent (32.0-36.0) Red Cell Distribution Width 16.2 % (11.6-17.2) Platelet Count 189 TH/MM3 (150-450) Mean Platelet Volume 9.1 FL (7.0-11.0) Neutrophils (%) (Auto) 80.8 % (16.0-70.0) Lymphocytes (%) (Auto) 8.4 % (9.0-44.0) Monocytes (%) (Auto) 10.3 % (0.0-8.0) Eosinophils (%) (Auto) 0.2 % (0.0-4.0) Basophils (%) (Auto) 0.3 % (0.0-2.0) Neutrophils # (Auto) 12.2 TH/MM3 (1.8-7.7) Lymphocytes # (Auto) 1.3 TH/MM3 (1.0-4.8) Monocytes # (Auto) 1.6 TH/MM3 (0-0.9) Eosinophils # (Auto) 0.0 TH/MM3 (0-0.4) Basophils # (Auto) 0.0 TH/MM3 (0-0.2) CBC Comment DIFF FINAL Differential Comment Sodium Level 138 MEQ/L (136-145) Potassium Level 3.3 MEQ/L (3.5-5.1) Chloride Level 100 MEQ/L (98-107) Carbon Dioxide Level 19.9 MEQ/L (21.0-32.0) Anion Gap 18 MEQ/L (5-15) Blood Urea Nitrogen 44 MG/DL (7-18) Creatinine 2.02 MG/DL (0.60-1.30) Estimat Glomerular Filtration 35 ML/MIN (>89) Rate Random Glucose 290 MG/DL (74-106) Calcium Level 7.3 MG/DL (8.5-10.1) Protein Corrected Calcium 8.1 MG/DL (8.5-10.1) Phosphorus Level 6.5 MG/DL (2.5-4.9) Magnesium Level 1.9 MG/DL (1.5-2.5) Total Bilirubin 2.1 MG/DL (0.2-1.0) Aspartate Amino Transf 132 U/L (15-37) (AST/SGOT) Alanine Aminotransferase 77 U/L (12-78) (ALT/SGPT) Alkaline Phosphatase 87 U/L (45-117) Total Protein 5.7 GM/DL (6.4-8.2) Albumin 2.6 GM/DL (3.4-5.0) Blood Gas Puncture Site ART LINE Blood Gas Patient Temperature 98.6 Blood Gas HCO3 20 mmol/L (22-26) Blood Gas Base Excess -6.4 mmol/L (-2-2) Blood Gas Oxygen Saturation 88 % (90-100) Arterial Blood pH 7.25 (7.380-7.420) Arterial Blood Partial 46 mmHg (38-42) Pressure CO2 Arterial Blood Partial 70 mmHg Pressure O2 (61-120) Arterial Blood Oxygen Content 17.7 Vol % (12.0-20.0) Arterial Blood 1.3 % (0-4) Carboxyhemoglobin Arterial Blood Methemoglobin 1.2 % (0-2) Blood Gas Hemoglobin 14.3 G/DL (12.0-16.0) Oxygen Delivery Device VENTILATOR Blood Gas Ventilator Setting PRVC/AC Blood Gas Inspired Oxygen 100 % Result Diagram: 03/04/17 0535 03/04/17 0535 Imaging Last Impressions Lower Extremity Ultrasound 03/04/17 1001 Signed Impressions: Service Date/Time: Saturday, March 04, 2017 10:23 - CONCLUSION: No evidence of deep venous thrombosis within the right lower extremity. Nonocclusive thrombus is noted within the left greater saphenous vein. Ronaldo George MD Chest X-Ray 03/04/17 0600 Signed Impressions: Service Date/Time: Saturday, March 04, 2017 03:53 - CONCLUSION: Worsening pulmonary edema. Lillian Hernandez MD Head CT 03/03/17 1052 Signed Impressions: Service Date/Time: Friday, March 03, 2017 12:02 - CONCLUSION: 1. High density ovoid lesion within the region of the sella/suprasellar cistern measuring 11 x 14 mm. This raises the possibility of anterior communicating artery aneurysm. CTA or MRA of the brain would be helpful for further evaluation of this finding. 2. No evidence of acute hemorrhage, acute infarct, mass effect or extra axial fluid collections. 3. Minimal periventricular white matter small vessel ischemic changes bilaterally. Ronaldo George MD ADDENDUM: The report was called to the emergency room staff immediately at 12:20 PM on 03/03/17. Ronaldo George MD Procedures 03/03-attempted placement of cooling catheter to left femoral vein. 03/03-placement of cooling catheter through right femoral vein 03/03-intubation 03/03-right IJ central line placement Patient/Family Conference Present at Family Conference: Supriya- Brian Mohr- Patient's sisterDyana- Patient sisterClaudine- NephewAnderson Family Conference Time (mins): 90 Family Conference Location: Consult Room Issues Discussed: * Palliative care role, purpose, approach * Additional medical, psychosocial, and spiritual history * Patients general health, functional status, and cognitive changes in the months leading up to the current hospitalization * Patient/family understanding of the current medical problems * Patient/family understanding of prognosis * Patients goals of care as best understood from advance directives and/or conversations and/or values * Current medical treatment options and benefits/burdens of those options * Likely scenarios comparing ongoing aggressive care with a transition to comfort measures only * Questions answered to the best of my ability * Palliative care contact information provided The family meeting was attended by his , Supriya, son Brian, . Dyana, sister Claudine, nephew Anderson and Dr. Dodge. After medical update given by Dr. Dodge palliative care purpose and roll was explained to the family. Patient's condition and prognosis were discussed and multiple questions answered. Family states they were unaware of the recommendation that the patient receive a defibrillator, which he declined. His states that he kept most of his medical information to himself and was unwilling to discuss it with family. They did had not previously had a discussion regarding advanced directives or the patient's wishes. The states that based on his decision to decline the defibrillator, she feels that he would not wish to remain on life support for an extended period of time. Due to the acute nature of his injury, he will remain under a cooling protocol until 8 PM tonight. After that gradual warming will take place followed by assessment of the brain function with an EEG and neurology evaluation. At that time the family feels they will be able to move forward with further decisions regarding further care. Possible scenarios were discussed ranging from possible recovery to continued respiratory failure, unable to wean from ventilator. Family states he would not want tracheostomy and PEG tube. states that if he is unable to be weaned from the ventilator and would have poor quality of life she would prefer to with draw to comfort care. Palliative care will continue to follow to provide support, medical information and assist with options for goals of care. . Assessment and Plan Disease Oriented Problem List: (1) Cardiopulmonary arrest with successful resuscitation (2) COPD (chronic obstructive pulmonary disease) (3) Coronary artery disease (4) Atrial fibrillation (5) Ventricular fibrillation (6) Diabetes (7) Respiratory failure (8) PVD (peripheral vascular disease) (9) Hypertension (10) Obesity (11) Non-ischemic cardiomyopathy (12) Severe tricuspid regurgitation Symptom Scale: (1) Pain, generalized 0-10 Scale: Unable to quantify (2) Anxiety 0-10 Scale: Unable to quantify (3) Dyspnea and respiratory abnormalities 0-10 Scale: Unable to quantify Pertinent Non-Medical Issues Psychosocial: He was born in [place] but moved to [place] as an infant where he spent most of his adult life. He enjoyed fishing and golf and reading. He loved all babies and was deeply involved with his grandchildren and children. He was known to have a very sharp sense of humor and loved a good discussion. Spiritual: No spiritual affiliation. Legal: His is his legal proxy. Ethical issues impacting care: Important Contacts - Supriya Mckeon, Prognosis His prognosis is poor. He has suffered multiple V. fib arrests requiring repeated resuscitation attempts and was down awaiting resuscitative efforts for over 15 minutes. He is critically ill, undergoing cooling protocol in cardiovascular intensive care, intubated, requiring vasopressors for hemodynamic support. His ejection fraction is in the 10-20% range and had previously declined defibrillator implantation. Cardiac function has declined since previous available echocardiogram to include severe pulmonary hypertension and severe tricuspid regurgitation, complicating his recovery. Code Status: Alternative Code Plan PLAN: Legal decision maker: At this time patient is not capacitated to make decisions due to clinical condition which by [place] statutes would make his spouse Supriya Mckeon the legal decision maker. . Goals: Aggressive at this time. CODE STATUS: Alternate code with intubation, shock, ACLS drugs. No CPR. SYMPTOMS: * Dyspnea - patient remains on mechanical ventilation, sedated. Showing no signs of dyspnea at this point however is at risk due to cardiopulmonary compromise. * Anxiety - patient remains sedated at this time and symptoms difficult to assess however, as sedation is weaned patient is at significant risk for anxiety related to mechanical intubation, ICU environment and invasive lines. Currently on Versed, fentanyl, and cisatracurium. * Pain - currently sedated, however at risk for pain secondary to bedbound status, invasive lines, recent CPR and defibrillation. In summary this is a 56-year-old male with severe cardiac dysfunction complicated by pulmonary hypertension which has now caused severe tricuspid regurgitation. It is reported that he was recently showing signs of a distended abdomen likely related to the pulmonary hypertension. After his initial V. fib arrest, the was unable to make any resuscitative efforts as she was unable to move the patient resulting in him being down without resuscitation for over 15 minutes. He is currently on cooling protocol and full ICU support to include hemodynamic support. His cardiac function is significantly impaired with an ejection fraction of 10-20%, severe tricuspid regurgitation and pulmonary hypertension ranging from 60-70 mmHg. His prognosis is very poor. Palliative care will continue to follow the patient during hospital course as condition evolves, to assist patient/decision-maker with understanding of their medical conditions, weighing benefits/burdens of treatment options, for clarification of goals of treatment. Additionally will assist with any symptoms of palliative concern Thank you for the opportunity to participate in the care of Mr. Patel. Attestation To help prompt me to consider important information that might be impacting today's encounter and assessment, information from prior notes written by myself or my colleagues may have been "brought forward" into today's note. My signature on this note, however, is an attestation that I personally performed the exam, history, and/or decision-making noted today, and, unless otherwise indicated, the interactions with patient, family, and staff as well as the review of records all occurred today. I also attest that the listed assessment and stated plan reflect my best clinical judgment today based on the combination of historical information, prior notes, and today's exam/ interactions. When time spent is documented, it refers only to time spent today by the signer, or if indicated, combined time spent today by collaborating physician/nurse practitioner. Amairani Crocker Mar 04, 2017 10:31 am
--- NOTE | 2017-03-04 10:31 | HHI.CCPN ---
Subjective Remarks/Hospital Course The patient is a 56-year-old male who presents to the emergency department via EMS as a cardiac arrest. According to EMS the patient was in the living room, the is in another room talking to him, when she heard a loud noise, when she entered the living room, the patient was on the floor face down. When EMS arrived they stated the patient was in fine V. fib, the defibrillator the patient 1 and he subsequently went into asystole and PEA. They placed an IM in the left lower extremity and administered 4 rounds of epinephrine and 100 mEq of bicarbonate. They stated the patient went into PA and then they regained pulses just prior to arrival. The patient is well known to the cardiology, Dr. Akbar In discussion with cardiology the patient has a known nonischemic cardiomyopathy, AICD was offered to the patient several months ago, at which the patient declined.He was intubated in the field by EMS. Upon arrival the patient was intubated, pulseless, and CPR was initially started. Critical care medicine was consulted for management. Subjective: 03/04: Patient remains on hypothermia protocol, target 10 achieved at 8 PM last evening. Prior to hypothermic protocol initiation the patient was noted to have persistent myoclonic jerks requiring intervention. The patient has severe metabolic acidosis requiring escalation of sodium bicarbonate infusion and continues on multiple vasopressor medications-to include norepinephrine, vasopressin, and phenylephrine. The patient has been weaned down on Cardizem infusion for atrial fibrillation. Echo performed revealing ejection fraction 10 20%. Discussion last evening with family per Dr. Syed, the patient was made with an alternate CODE STATUS. Palliative care was also consulted yesterday. Objective Vital Signs Date Time Temp Pulse Resp B/P Pulse Ox O2 Delivery O2 Flow Rate FiO2 03/04/17 07:59 91 100 03/04/17 07:56 87 03/04/17 07:56 91.4 22 86/61 03/03/17 13:19 Auto-Vent 03/03/17 10:33 15.00 Intake and Output 03/03/17 03/03/17 03/04/17 08:00 16:00 00:00 Intake Total 865 ml Output Total 63 ml Balance 802 ml Result Diagram: 03/04/17 0535 03/04/17 0535 Other Results Laboratory Tests Test 6/13/17 6/13/17 6/14/17 11:35 16:30 05:48 Blood Gas Puncture Site ARTLINE ART LINE ART LINE Blood Gas Patient Temperature 98.6 98.6 98.6 Blood Gas HCO3 16 mmol/L 19 mmol/L 20 mmol/L (22-26) (22-26) (22-26) Blood Gas Base Excess -12.0 mmol/L -8.9 mmol/L -6.4 mmol/L (-2-2) (-2-2) (-2-2) Blood Gas Oxygen Saturation 89 % (90-100) 88 % (90-100) 88 % (90-100) Arterial Blood pH 7.11 7.15 7.25 (7.380-7.420) (7.380-7.420) (7.380-7.420) Arterial Blood Partial 53 mmHg (38-42) 56 mmHg (38-42) 46 mmHg (38-42) Pressure CO2 Arterial Blood Partial 95 mmHG 76 mmHg 70 mmHg Pressure O2 (61-120) (61-120) (61-120) Arterial Blood Oxygen Content 18.9 Vol % 18.7 Vol % 17.7 Vol % (12.0-20.0) (12.0-20.0) (12.0-20.0) Arterial Blood 3.8 % (0-4) 1.8 % (0-4) 1.3 % (0-4) Carboxyhemoglobin Arterial Blood Methemoglobin 1.0 % (0-2) 1.0 % (0-2) 1.2 % (0-2) Blood Gas Hemoglobin 15.1 G/DL 15.1 G/DL 14.3 G/DL (12.0-16.0) (12.0-16.0) (12.0-16.0) Oxygen Delivery Device VENT VENTILATOR VENTILATOR Blood Gas Ventilator Setting AC16/550/+5/100 AC PRVC/AC 550/20/+8PEEP Blood Gas Inspired Oxygen 100 % 100 % 100 % Imaging Last Impressions Head CT 03/03/17 1052 Signed Impressions: Service Date/Time: Friday, March 03, 2017 12:02 - CONCLUSION: 1. High density ovoid lesion within the region of the sella/suprasellar cistern measuring 11 x 14 mm. This raises the possibility of anterior communicating artery aneurysm. CTA or MRA of the brain would be helpful for further evaluation of this finding. 2. No evidence of acute hemorrhage, acute infarct, mass effect or extra axial fluid collections. 3. Minimal periventricular white matter small vessel ischemic changes bilaterally. Ronaldo George MD ADDENDUM: The report was called to the emergency room staff immediately at 12:20 PM on 03/03/17. Ronaldo George MD Chest X-Ray 03/03/17 1052 Signed Impressions: Service Date/Time: Friday, March 03, 2017 11:29 - CONCLUSION: Satisfactory position endotracheal, nasogastric and central venous support devices. Mild congestive changes with small right pleural effusion and right basilar airspace disease. Koffi Acuna MD Objective Remarks GENERAL: Obese male, intubated and sedated with hypothermic cooling SKIN: Warm and dry. Venous stasis noted bilateral lower extremities HEAD: Atraumatic. Normocephalic. EYES: Pupils equal and round. No scleral icterus. No injection or drainage. ENT: No nasal bleeding or discharge. Mucous membranes pink and moist. NECK: Trachea midline. Unable to assess JVD. CARDIOVASCULAR: Normal rate, irregular rhythm. RESPIRATORY: Mechanical ventilation. Clear to auscultation. Breath sounds equal bilaterally. GASTROINTESTINAL: Abdomen soft, obese. Hypoactive bowel sounds MUSCULOSKELETAL: Extremities without clubbing, cyanosis, or edema. No obvious deformities. NEUROLOGICAL: Intubated, sedation on hypothermia protocol Urinary Catheter: Yes Farah insert reason: Measure Accurate Output Date of Insertion: Mar 03, 2017 Vascular Central Line Catheter: Yes Date of Insertion: Mar 03, 2017 Reason for Continuation Vasoactive medications, CVP monitoring A/P Assessment and Plan This is a 56-year-old critically ill male, status post witnessed V. fib arrest. Upon admission to the ED the patient was noted to be pulseless, CPR was reinitiated x 34 minutes, with an additional dose of epinephrine, ROSC. The patient's prognosis is extremely guarded, the patient has a long history of nonischemic cardiomyopathy at which point AICD was offered but the patient declined. Discussion with patient's leaf tinner, Dr. Akbar is in agreement as the patient may not survive current hospitalization. Plan by systems: Neurologic: Possible Hypoxic encephalopathy Myoclonic activity --GCS 3T --03/03 CT brain-no acute hemorrhage. High density ovoid lesion within the region of the sella/suprasellar cistern measuring 1114 mm possibility of anterior communicating artery aneurysm. --Neurology consult post hypothermia protocol --Will obtain EEG post hypothermia protocol --Versed ,fentanyl , cisatracurium Infusions to maintain ventilator synchrony Respiratory: Respiratory arrest Severe pulmonary hypertension Pulmonary edema --Mechanical ventilation 22/550/10/100% --PA pressures 60-70mmHg --7.25/46/88/20/-6.4 --03/04 Chest x-ray -Worsening pulmonary edema Cardiovascular: S/P V. fib arrest Nonischemic cardiomyopathy Cardiomegaly Acute systolic heart failure Atrial fibrillation -- Postarrest hypothermia protocol-cisatracurium, Versed, fentanyl --Norepinephrine, vasopressin , phenylephrine maintain MAP greater than 65mmHg --Cardizem currently at 5 mg/now for heart rate control --Per flow trac CI 1.7, CO 3.9 Renal: AK I-secondary to cardiac arrest Oliguria Farah UOP- 12 cc in 12 hours Bumex 1 dose Nephrology consult -- Strict I/Os FEN/GI: Metabolic acidosis Hypokalemia --sodium bicarbonate infusion 100 cc/hour --Nothing by mouth status -- Zofran for nausea --Maintain OGT to LIWS Heme/ID: --Monitor CBC --Obtain blood cultures 2 per hypothermia protocol today Endocrine: Glucose monitoring per ICU protocol -- SSI Prophylaxis: GI Prophylaxis Pepcid 20 mg twice a day DVT Prophylaxis -- SCDs Lines: Right radial a line, day #2, right IJ day #2, right femoral cooling catheter day #2 Dispo: Discussed with family, and Dr. Akbar and HISTOLOGY TECHNICIAN at bedside. This patient remains critically ill with one or more organ systems which are or may become a threat to life. I have spent in excess of 45 minutes discontinuously in the care and management of this patient. This time is exclusive of procedures, and includes, but is not limited to, evaluation of the patient, review of the medical record, discussions with family, consultants, nursing staff, or respiratory therapy, and documentation in the medical record. Physician Cynthia Dior MD Mar 04, 2017 10:30
[2017-03-04] MEDS: INSULIN ASPART SUPPLEMENTAL SCALE SQ SCH ×3 (11:00→20:26)
--- NOTE | 2017-03-04 11:32 | RADRPT ---
EXAM DATE/TIME: 03/04/2017 10:23 [facility] COMPARISON: No previous studies available for comparison. INDICATIONS : Left leg swelling. MEDICAL HISTORY : Chronic obstructive pulmonary disease. Hypertension. Myocardial infarction. SURGICAL HISTORY : Back surgery. Cardiac surgery. Right leg surgery. ENCOUNTER: Initial ACUITY: 1 day PAIN SCORE: Non-responsive LOCATION: Left leg. TECHNIQUE: Venous ultrasound of the leg was performed from the inguinal ligament to the proximal calf. Real-gisela e, color Doppler and spectral tracing, compression and augmentation techniques were used. FINDINGS: There is normal compressibility of the deep venous system from the inguinal region to the proximal ca lf. No echogenic clot is seen in the lumen of the common femoral, femoral, popliteal, and posterior tibial veins. There is a normal response of the venous system to proximal and distal augmentation an d respiration. Nonocclusive thrombus is noted within the left greater saphenous vein. CONCLUSION: No evidence of deep venous thrombosis within the right lower extremity. Nonocclusive thrombus is noted within the left greater saphenous vein. Ronaldo George MD on March 04, 2017 at 11:28 Board Certified Radiologist. This report was verified electronically.
--- NOTE | 2017-03-04 13:51 | PD.CONS ---
HPI Service Nephrology Consult Requested By Dr. Dodge Reason for Consult Acute renal failure post cardiac arrest Primary Care Physician Unknown History of Present Illness Patient is a 56-year-old male with history of cardiomyopathy, cigarette smoking stopped recently who was brought after having a cardiac arrest at home. According to records or his was in the next room and heard a loud noise., She then found her face down on the floor and 911 was called the initial rhythm was fine ventricular fibrillation he was given cardioversion and went into pulseless electrical activity, he received 4 epinephrine, sodium bicarbonate and then he was brought to the emergency where he again went into asystole further cardiac resuscitation was done and he was transferred to intensive care unit. Patient is at has been getting vasopressors and maintained on flow tract Past Family Social History Allergies: Coded Allergies: No Known Allergies (Verified , 03/03/17) Past Medical History Nonischemic cardiomyopathy ejection fraction 10-20 % Congestive heart failure Coronary artery disease Hypertension Atrial fibrillation Cardiomegaly Diabetes mellitus History of alcoholism Tobacco use COPD Severe tricuspid regurgitation Pulmonary hypertension Past Surgical History Heart catheterization in 2012 Reported Medications Reported Meds & Active Scripts Active Active Prescriptions or Reported Medications Unobtainable Active Ordered Medications Current Medications Medications (Trade) Dose Ordered Sig/Sarkis Route Start Time Stop Time Status Last Admin (NS Flush) 2 ml UNSCH PRN IV FLUSH 03/03/17 11:00 (NS Flush) 2 ml UNSCH PRN IV FLUSH 03/03/17 12:00 (NS Flush) 2 ml BID IV FLUSH 03/03/17 21:00 03/04/17 09:05 (Pepcid) 20 mg Q12HR PO 03/03/17 21:00 03/04/17 09:10 (Tears Naturale Opth Soln) 1 drop TID EACH EYE 03/03/17 13:00 03/04/17 13:09 (Zofran Inj) 4 mg Q6H PRN IV 03/03/17 12:00 Miscellaneous Information 1 Q361D XX 03/03/17 12:00 (Chlorhexidine 2% Cloth) 3 pack Taper DAILY@04 TOP 03/04/17 04:00 02/28/18 03:59 (Chlorhexidine 2% Cloth) 3 pack UNSCH PRN TOP 03/03/17 12:00 (Keyana-Colace) 1 tab BID PO 03/03/17 21:00 03/04/17 09:10 (Milk Of Magnesia Liq) 30 ml Q12H PRN PO 03/03/17 12:00 (Senokot) 17.2 mg Q12H PRN PO 03/03/17 12:00 (Dulcolax Supp) 10 mg DAILY PRN RECTAL 03/03/17 12:00 Lactulose 30 ml 30 ml DAILY PRN PO 03/03/17 12:00 Potassium Chloride 100 ml @ 50 mls/hr Q2H PRN IV 03/03/17 12:00 (KCl 20 Meq Premix Inj) 100 ml @ 50 mls/hr Q2H PRN IV 03/03/17 12:00 Potassium Bicarb/ Potassium Chloride 50 meq 50 meq UNSCH PRN PO 03/03/17 12:00 Potassium Chloride 100 ml @ 25 mls/hr UNSCH PRN IV 03/03/17 12:00 Potassium Chloride 100 ml @ 50 mls/hr Q2H PRN IV 03/03/17 12:00 03/04/17 09:35 (Magnesium Sulfate Inj/NS Inj) 100 ml @ 50 mls/hr UNSCH PRN IV 03/03/17 12:00 Magnesium Oxide 800 mg 800 mg UNSCH PRN PO 03/03/17 12:00 (Magnesium Sulfate Inj/NS Inj) 100 ml @ 50 mls/hr UNSCH PRN IV 03/03/17 12:00 Potassium Phosphate 2000 mg 2,000 mg Q4H PRN PO 03/03/17 12:00 (Sodium Phosphate Inj/NS 250 ml Inj) 250 ml @ 42 mls/hr UNSCH PRN IV 03/03/17 12:00 Potassium Phosphate 2000 mg 2,000 mg UNSCH PRN PO/TUBE 03/03/17 12:00 (Potassium Phosphate Inj/NS 250 ml Inj) 260 ml @ 42 mls/hr UNSCH PRN IV 03/03/17 12:00 (Peridex 0.12% Liq) 15 ml BID@08,20 MT 03/03/17 20:00 03/04/17 08:11 (D50w (Vial) Inj) 50 ml UNSCH PRN IV 03/03/17 12:00 (Glucagon Inj) 1 mg UNSCH PRN OTHER 03/03/17 12:00 (Brethine Inj) 1 mg UNSCH PRN SQ 03/03/17 12:15 Lorazepam 1 mg 1 mg Q1H PRN IV 03/03/17 13:00 Midazolam HCl 100 ml @ 0 mls/hr TITRATE IV 03/03/17 13:00 03/03/17 19:22 (fentaNYL DRIP) 250 ml @ 0 mls/hr TITRATE IV 03/03/17 13:00 03/03/17 13:57 Meperidine HCl 25 mg 25 mg Q2H PRN IVP 03/03/17 13:00 (Magnesium Sulfate Inj/NS 250 ml Inj) 250 ml @ 62.5 mls/hr Q4H PRN IV 03/03/17 13:00 (Tylenol 650 Mg/ 20 ml Liq) 650 mg Q6H PRN NG 03/03/17 13:00 Buspirone HCl 15 mg 15 mg BID PRN NG 03/03/17 13:00 (Nimbex Inj/NS 250 ml Inj) 250 ml @ 0 mls/hr TITRATE IV 03/03/17 13:30 03/04/17 06:50 Artificial Tears 1 applic 1 applic Q4H PRN EACH EYE 03/03/17 13:00 Miscellaneous Information 0 ml @ 0 mls/hr UNSCH IV 03/03/17 13:00 Norepinephrine Bitartrate 4 mg/ Sodium Chloride 250 ml @ 0 mls/hr TITRATE IV 03/03/17 13:00 03/04/17 12:52 Sodium Bicarbonate 150 meq/Sodium Chloride 1,000 ml @ 100 mls/hr Q10H IV 03/03/17 14:00 03/04/17 10:08 (Cardizem Inj/NS Inj) 125 ml @ 0 mls/hr TITRATE IV 03/03/17 15:00 03/03/17 23:26 (Lovenox Inj) 110 mg Q12H SQ 03/03/17 15:00 Hold (Lasix Inj) 40 mg BID@09,18 IV PUSH 03/03/17 18:00 03/04/17 09:10 Terbutaline Sulfate 1 mg 1 mg UNSCH PRN SQ 03/03/17 17:00 Phenylephrine HCl 160 mg/Sodium Chloride 500 ml @ 0 mls/hr TITRATE IV 03/03/17 18:02 03/04/17 04:50 Vasopressin 40 units/Sodium Chloride 100 ml @ 1.5 mls/hr Q24H IV 03/03/17 18:23 03/04/17 06:50 (Dobutrex Inj/NS 250 ml Inj) 250 ml @ 4.12 mls/hr CONTINUOUS IV 03/03/17 23:00 03/03/17 23:10 (Albumin 5% Inj) 25 gm Q6H IV 03/04/17 00:00 03/04/17 18:01 03/04/17 12:00 (D50w (Vial) Inj) 50 ml UNSCH PRN IV 03/04/17 09:45 (Glucagon Inj) 1 mg UNSCH PRN OTHER 03/04/17 09:45 (Tears Naturale Opth Soln) 1 drop Q4H PRN EACH EYE 03/04/17 09:45 Family History Noncontributory Social History History of smoking and alcohol use in the recent past Physical Exam Vital Signs Vital Signs Date Time Temp Pulse Resp B/P Pulse Ox O2 Delivery O2 Flow Rate FiO2 03/04/17 11:17 91.4 72 22 99/66 92 03/04/17 11:17 72 03/04/17 11:16 100 03/04/17 10:57 91 100 03/04/17 07:59 91 100 03/04/17 07:56 87 03/04/17 07:56 91.4 68 22 86/61 92 03/04/17 07:53 100 03/04/17 03:17 91 100 03/04/17 03:00 87 03/04/17 03:00 100 03/04/17 03:00 91.4 68 22 74/52 89 03/04/17 00:51 92 100 03/03/17 23:00 100 03/03/17 23:00 91 03/03/17 23:00 91.0 91 22 76/62 92 03/03/17 22:55 94 100 03/03/17 20:30 93 100 03/03/17 19:00 94 03/03/17 19:00 93.3 100 22 82/63 93 03/03/17 19:00 100 03/03/17 18:00 116 03/03/17 17:00 128 03/03/17 16:05 90 100 03/03/17 16:00 131 03/03/17 15:45 89 100 03/03/17 15:00 100.0 145 18 110/74 89 124/85 03/03/17 15:00 100 03/03/17 15:00 145 03/03/17 14:20 89 100 03/03/17 14:19 66 Physical Exam GENERAL: Well-nourished, well-developed patient. SKIN: Warm and dry. HEAD: Normocephalic. EYES: No scleral icterus. No injection or drainage. NECK: Supple, trachea midline. No JVD or lymphadenopathy. Intubated CARDIOVASCULAR: Irregular RESPIRATORY: Breath sounds equal bilaterally. No accessory muscle use. GASTROINTESTINAL: Abdomen soft, non-tender, distended bowel sound are absent. EXTREMITIES: No cyanosis, or edema. NEUROLOGICAL: Intubated unresponsive Laboratory Laboratory Tests Test 03/03/17 03/03/17 03/03/17 03/03/17 16:25 16:30 18:25 23:40 Hemoglobin 14.7 15.1 Hematocrit 46.0 45.9 Blood Gas Puncture Site ART LINE Blood Gas Patient Temperature 98.6 Blood Gas HCO3 19 Blood Gas Base Excess -8.9 Blood Gas Oxygen Saturation 88 Arterial Blood pH 7.15 Arterial Blood Partial 56 Pressure CO2 Arterial Blood Partial 76 Pressure O2 Arterial Blood Oxygen Content 18.7 Arterial Blood 1.8 Carboxyhemoglobin Arterial Blood Methemoglobin 1.0 Blood Gas Hemoglobin 15.1 Oxygen Delivery Device VENTILATOR Blood Gas Ventilator Setting AC 550/20/+8PEEP Blood Gas Inspired Oxygen 100 Nasal Screen MRSA (PCR) MRSA NOT DETECTED White Blood Count 19.6 Red Blood Count 4.99 Mean Corpuscular Volume 91.8 Mean Corpuscular Hemoglobin 30.2 Mean Corpuscular Hemoglobin 32.9 Concent Red Cell Distribution Width 16.2 Platelet Count 263 Mean Platelet Volume 8.9 Neutrophils (%) (Auto) 86.7 Lymphocytes (%) (Auto) 3.4 Monocytes (%) (Auto) 9.5 Eosinophils (%) (Auto) 0.1 Basophils (%) (Auto) 0.3 Neutrophils # (Auto) 17.0 Lymphocytes # (Auto) 0.7 Monocytes # (Auto) 1.9 Eosinophils # (Auto) 0.0 Basophils # (Auto) 0.1 CBC Comment AUTO DIFF Differential Comment AUTO DIFF CONFIRMED Sodium Level 138 Potassium Level 3.6 Chloride Level 100 Carbon Dioxide Level 17.3 Anion Gap 21 Blood Urea Nitrogen 40 Creatinine 1.96 Estimat Glomerular Filtration 36 Rate Random Glucose 211 Calcium Level 7.5 Phosphorus Level 6.9 Magnesium Level 2.1 Test 03/04/17 03/04/17 03/04/17 05:30 05:35 05:48 Prothrombin Time 25.4 Prothromb Time International 2.2 Ratio Activated Partial 38.6 Thromboplast Time Fibrinogen 429 White Blood Count 15.1 Red Blood Count 4.77 Hemoglobin 14.1 Hematocrit 43.5 Mean Corpuscular Volume 91.3 Mean Corpuscular Hemoglobin 29.6 Mean Corpuscular Hemoglobin 32.4 Concent Red Cell Distribution Width 16.2 Platelet Count 189 Mean Platelet Volume 9.1 Neutrophils (%) (Auto) 80.8 Lymphocytes (%) (Auto) 8.4 Monocytes (%) (Auto) 10.3 Eosinophils (%) (Auto) 0.2 Basophils (%) (Auto) 0.3 Neutrophils # (Auto) 12.2 Lymphocytes # (Auto) 1.3 Monocytes # (Auto) 1.6 Eosinophils # (Auto) 0.0 Basophils # (Auto) 0.0 CBC Comment DIFF FINAL Differential Comment Sodium Level 138 Potassium Level 3.3 Chloride Level 100 Carbon Dioxide Level 19.9 Anion Gap 18 Blood Urea Nitrogen 44 Creatinine 2.02 Estimat Glomerular Filtration 35 Rate Random Glucose 290 Calcium Level 7.3 Protein Corrected Calcium 8.1 Phosphorus Level 6.5 Magnesium Level 1.9 Total Bilirubin 2.1 Aspartate Amino Transf 132 (AST/SGOT) Alanine Aminotransferase 77 (ALT/SGPT) Alkaline Phosphatase 87 Total Protein 5.7 Albumin 2.6 Blood Gas Puncture Site ART LINE Blood Gas Patient Temperature 98.6 Blood Gas HCO3 20 Blood Gas Base Excess -6.4 Blood Gas Oxygen Saturation 88 Arterial Blood pH 7.25 Arterial Blood Partial 46 Pressure CO2 Arterial Blood Partial 70 Pressure O2 Arterial Blood Oxygen Content 17.7 Arterial Blood 1.3 Carboxyhemoglobin Arterial Blood Methemoglobin 1.2 Blood Gas Hemoglobin 14.3 Oxygen Delivery Device VENTILATOR Blood Gas Ventilator Setting PRVC/AC Blood Gas Inspired Oxygen 100 Result Diagram: 03/04/17 0535 03/04/17 0535 Imaging Last Impressions Lower Extremity Ultrasound 03/04/17 1001 Signed Impressions: Service Date/Time: Saturday, March 04, 2017 10:23 - CONCLUSION: No evidence of deep venous thrombosis within the right lower extremity. Nonocclusive thrombus is noted within the left greater saphenous vein. Ronaldo George MD Chest X-Ray 03/04/17 0600 Signed Impressions: Service Date/Time: Saturday, March 04, 2017 03:53 - CONCLUSION: Worsening pulmonary edema. Lillian Hernandez MD Head CT 03/03/17 1052 Signed Impressions: Service Date/Time: Friday, March 03, 2017 12:02 - CONCLUSION: 1. High density ovoid lesion within the region of the sella/suprasellar cistern measuring 11 x 14 mm. This raises the possibility of anterior communicating artery aneurysm. CTA or MRA of the brain would be helpful for further evaluation of this finding. 2. No evidence of acute hemorrhage, acute infarct, mass effect or extra axial fluid collections. 3. Minimal periventricular white matter small vessel ischemic changes bilaterally. Ronaldo George MD ADDENDUM: The report was called to the emergency room staff immediately at 12:20 PM on 03/03/17. Ronaldo George MD Assessment and Plan Problem List: (1) Acute renal failure Plan: Patient is beginning to make urine continue supportive care he is on vasopressors on Lasix started to make urine Also getting bicarbonate drip for acidosis Avoid nephrotoxins or gadolinium study (2) Coronary artery disease Plan: Cardiology is following (3) Atrial fibrillation Plan: : Diltiazem (4) Non-ischemic cardiomyopathy Plan: EF is 10-20% (5) Cardiopulmonary arrest with successful resuscitation Plan: Patient has encephalopathy (6) Anoxic encephalopathy Plan: Continue monitor (7) Acidosis, metabolic Plan: On bicarbonate drip Anjelica Guaman MD Mar 04, 2017 13:51
[2017-03-04 14:13] LABS: BICARBONATE 25.2 MEQ/L (21.0-32.0); MAGNESIUM 1.8 MG/DL (1.5-2.5); POTASSIUM 3.2 MEQ/L (3.5-5.1)
[2017-03-04 14:29] LABS: CALCIUM-PROTEIN CORRECTED 7.9 MG/DL (8.5-10.1)
[2017-03-04] MEDS: DILTIAZEM INJ 125 MG in SODIUM CHLORIDE 0.9% INJ 100 ML IV SCH (21:13)
[2017-03-04 21:22] LABS: BICARBONATE 25.1 MEQ/L (21.0-32.0); MAGNESIUM 1.9 MG/DL (1.5-2.5); POTASSIUM 3.6 MEQ/L (3.5-5.1)
[2017-03-04 21:43] LABS: CALCIUM-PROTEIN CORRECTED 7.3 MG/DL (8.5-10.1)
[2017-03-05] VITALS (14 sets, daily range): BP systolic 92–136; BP diastolic 67–75; PULSE 96–123; RESP 22–31; TEMP 95–98.7; O2SAT 91–97
[2017-03-05] MEDS: NOREPINEPHRINE INJ 4 MG in SODIUM CHLOR 0.9% 250 ML INJ 246 ML IV SCH ×2 (00:36→06:14)
[2017-03-05 01:18] LABS: BICARBONATE 29.4 MEQ/L (21.0-32.0); MAGNESIUM 1.7 MG/DL (1.5-2.5); POTASSIUM 3.4 MEQ/L (3.5-5.1)
[2017-03-05 01:39] LABS: CALCIUM-PROTEIN CORRECTED 7.8 MG/DL (8.5-10.1)
[2017-03-05] MEDS: ALBUMIN HUMAN 5% 25 GM/500 ML BOTTLE IV SCH ×4 (01:47→22:00)
[2017-03-05] MEDS: RESP: ALBUTEROL 2.5 MG/IPRATROPIUM 0.5 MG NEB (SCH) INH ×4 (03:43→20:05)
[2017-03-05] MEDS: CHLORHEXIDINE GLUCONATE 2 % 1 PACK (2 CLOTHS) TOP SCH (04:00)
[2017-03-05] MEDS: MIDAZOLAM 100 MG/ML INJ 100 ML IV SCH (04:18)
[2017-03-05] MEDS: fentaNYL DRIP 250 ML IV SCH (04:19)
--- NOTE | 2017-03-05 05:01 | RADRPT ---
EXAM DATE/TIME: 03/05/2017 03:35 [place] COMPARISON: CHEST SINGLE AP, March 04, 2017, 3:53. INDICATIONS : Shortness of breath, possible pulmonary disease. MEDICAL HISTORY : Hypertension. Cardiovascular disease. Chronic obstructive pulmonary disease. ND SURGICAL HISTORY : None. ENCOUNTER: Subsequent ACUITY: 3 days PAIN SCORE: Non-responsive. LOCATION: Bilateral chest FINDINGS: Lines and tubes are present not significantly changed. Cardiomegaly has not changed. There is worseni ng pulmonary edema since the prior exam. Bibasilar opacities are present may be due to a combination of consolidation and or pleural effusion. CONCLUSION: Worsening pulmonary edema. Bibasilar opacities are present may be due to a combinatio n of consolidation and or pleural effusion. Lillian Hernandez MD on March 05, 2017 at 4:58 Board Certified Radiologist. This report was verified electronically.
[2017-03-05 05:31] LABS: BLOOD GAS BASE EXCESS 0.7 mmol/L (-2-2); BLOOD GAS CARBOXYHEMOGLOBIN 1.3 % (0-4); BLOOD GAS HCO3 26 mmol/L (22-26); BLOOD GAS METHEMOGLOBIN 1.4 % (0-2); BLOOD GAS O2 HGB SATURATION 88 % (90-100); BLOOD GAS OXYGEN CONTENT 16.5 Vol % (12.0-20.0); BLOOD GAS PCO2 48 mmHg (38-42); BLOOD GAS PO2 65 mmHg (61-120); BLOOD GAS TOTAL HGB 13.4 G/DL (12.0-16.0); TEMP CORR TO 98.6
[2017-03-05 05:32] LABS: CRITICAL VALUE YES; DRAW SITE ART LINE; FIO2 100 %; OXYGEN DEVICE VENTILATOR; STAT NO; VENT SETTINGS PRVC/AC
[2017-03-05 05:52] LABS: AUTOMATED NEUTROPHIL # 7.7 TH/MM3 (1.8-7.7); BASOPHIL # 0.1 TH/MM3 (0-0.2); BASOPHIL % 1.2 % (0.0-2.0); HEMATOCRIT 39.8 % (39.0-51.0); LYMPH % 2.9 % (9.0-44.0); LYMPHOCYTE # 0.3 TH/MM3 (1.0-4.8); MEAN CELL VOLUME 89.1 FL (80.0-100.0); MEAN CORPUSCULAR HEMOGLOBIN 30.1 PG (27.0-34.0); MEAN CORPUSCULAR HGB CONC 33.7 % (32.0-36.0); MONO % 7.1 % (0.0-8.0); NEUT % 88.8 % (16.0-70.0); PLATELET COUNT 140 TH/MM3 (150-450); RED BLOOD COUNT 4.47 MIL/MM3 (4.50-5.90); RED CELL DISTRIBUTION WIDTH 16.6 % (11.6-17.2); WHITE BLOOD COUNT 8.7 TH/MM3 (4.0-11.0)
[2017-03-05 05:53] LABS: HEMO FLAGS AUTO DIFF
[2017-03-05] MEDS: PHENYLEPHRINE INJ 160 MG in SODIUM CHLORID 0.9% 500 ML INJ 484 ML IV SCH ×2 (06:14→19:52)
[2017-03-05] MEDS: SODIUM BICARBONATE 8.4% INJ 150 MEQ in SODIUM CHLOR 0.9% 1000 ML INJ 850 ML IV SCH (06:16)
[2017-03-05 06:17] LABS: BICARBONATE 28.4 MEQ/L (21.0-32.0); MAGNESIUM 1.8 MG/DL (1.5-2.5); POTASSIUM 3.4 MEQ/L (3.5-5.1)
[2017-03-05] MEDS ORDERED: AMIODARONE IV SCH (06:30)
[2017-03-05] MEDS ORDERED: AMIODARONE INJ 450 MG in SODIUM CHLOR 0.9% (EXCEL) INJ 241 ML IV SCH (06:30)
[2017-03-05] MEDS ORDERED: SODIUM CHLOR 0.9% IV SCH (06:30)
[2017-03-05 06:31] LABS: CALCIUM-PROTEIN CORRECTED 7.7 MG/DL (8.5-10.1)
[2017-03-05] MEDS: INSULIN ASPART SUPPLEMENTAL SCALE SQ SCH ×4 (06:38→22:02)
[2017-03-05 07:04] LABS: BANDS 16 % (0-6); BURR CELLS 1+ (NORMAL); METAMYELOCYTES 12 % (0-1); NEUTROPHIL # MANUAL DIFF 7.4 TH/MM3 (1.8-7.7); PLATELET ESTIMATE SMEAR LOW (NORMAL); PLATELET MORPHOLOGY ENLARGED (NORMAL); POLYS (SEG NEUTROPHILS) 57 % (16-70); SCAN/DIFF FINAL DIFF MANUAL; WBC DIFF SAMPLE 100
[2017-03-05] MEDS ORDERED: DIGOXIN 0.5 MG/2 ML VIAL IV PUSH ONE (07:30)
--- NOTE | 2017-03-05 07:36 | PD.CARD.PN ---
Subjective Subjective Remarks Intubated and sedated. Beginning warming process. HR 110-120. BP 98/68 Objective Vital Signs / I&O Vital Signs Date Time Temp Pulse Resp B/P Pulse Ox O2 Delivery O2 Flow Rate FiO2 03/05/17 06:15 100 03/05/17 06:15 97 100 03/05/17 03:42 91 100 03/05/17 03:00 95.0 100 22 103/67 91 108/68 03/05/17 03:00 100 03/05/17 03:00 101 03/04/17 23:50 91 100 03/04/17 23:00 100 03/04/17 23:00 92.0 97 22 103/65 90 97/72 03/04/17 23:00 98 03/04/17 22:30 92 100 03/04/17 20:30 92 100 03/04/17 19:00 100 03/04/17 19:00 91.6 85 22 102/66 92 97/74 03/04/17 19:00 79 03/04/17 16:10 91 100 03/04/17 15:09 88 03/04/17 15:09 91.4 88 22 105/69 92 03/04/17 15:08 100 03/04/17 11:17 91.4 72 22 99/66 92 03/04/17 11:17 72 03/04/17 11:16 100 03/04/17 10:57 91 100 03/04/17 07:59 91 100 03/04/17 07:56 87 03/04/17 07:56 91.4 68 22 86/61 92 03/04/17 07:53 100 I/O 03/04/17 03/04/17 03/04/17 03/05/17 03/05/17 03/05/17 07:00 15:00 23:00 07:00 15:00 23:00 Intake Total 5441 ml 4070 ml 3767 ml Output Total 12 ml 910 ml 810 ml Balance 5429 ml 3160 ml 2957 ml Intake Oral 3207 ml IV Total 4381 ml 3570 ml Albumin 1000 ml 500 ml 500 ml Tube Irrigant 60 ml 60 ml Output Urine Total 12 ml 610 ml 710 ml Gastric Drainage Total 0 ml 300 ml 100 ml # Bowel Movements 0 0 0 Laboratory Laboratory Tests Test 6/14/17 03/04/17 03/05/17 03/05/17 13:30 20:15 00:40 05:20 Sodium Level 142 MEQ/L 142 MEQ/L 144 MEQ/L Potassium Level 3.2 MEQ/L 3.6 MEQ/L 3.4 MEQ/L Chloride Level 104 MEQ/L 103 MEQ/L 105 MEQ/L Carbon Dioxide Level 25.2 MEQ/L 25.1 MEQ/L 29.4 MEQ/L Anion Gap 13 MEQ/L 14 MEQ/L 10 MEQ/L Blood Urea Nitrogen 47 MG/DL 49 MG/DL 51 MG/DL Creatinine 2.00 MG/DL 2.00 MG/DL 2.12 MG/DL Estimat Glomerular Filtration 35 ML/MIN 35 ML/MIN 33 ML/MIN Rate Random Glucose 268 MG/DL 238 MG/DL 206 MG/DL Lactic Acid Level 3.3 mmol/L Calcium Level 7.3 MG/DL 6.6 MG/DL 7.1 MG/DL Protein Corrected Calcium 7.9 MG/DL 7.3 MG/DL 7.8 MG/DL Magnesium Level 1.8 MG/DL 1.9 MG/DL 1.7 MG/DL Total Protein 6.0 GM/DL 5.7 GM/DL 5.7 GM/DL Blood Gas Puncture Site ART LINE Blood Gas Patient Temperature 98.6 Blood Gas HCO3 26 mmol/L Blood Gas Base Excess 0.7 mmol/L Blood Gas Oxygen Saturation 88 % Arterial Blood pH 7.35 Arterial Blood Partial 48 mmHg Pressure CO2 Arterial Blood Partial 65 mmHg Pressure O2 Arterial Blood Oxygen Content 16.5 Vol % Arterial Blood 1.3 % Carboxyhemoglobin Arterial Blood Methemoglobin 1.4 % Blood Gas Hemoglobin 13.4 G/DL Oxygen Delivery Device VENTILATOR Blood Gas Ventilator Setting [facility]/ Blood Gas Inspired Oxygen 100 % Test 03/05/17 05:30 White Blood Count 8.7 TH/MM3 Red Blood Count 4.47 MIL/MM3 Hemoglobin 13.4 GM/DL Hematocrit 39.8 % Mean Corpuscular Volume 89.1 FL Mean Corpuscular Hemoglobin 30.1 PG Mean Corpuscular Hemoglobin 33.7 % Concent Red Cell Distribution Width 16.6 % Platelet Count 140 TH/MM3 Mean Platelet Volume 8.9 FL Neutrophils (%) (Auto) 88.8 % Lymphocytes (%) (Auto) 2.9 % Monocytes (%) (Auto) 7.1 % Eosinophils (%) (Auto) 0.0 % Basophils (%) (Auto) 1.2 % Neutrophils # (Auto) 7.7 TH/MM3 Lymphocytes # (Auto) 0.3 TH/MM3 Monocytes # (Auto) 0.6 TH/MM3 Eosinophils # (Auto) 0.0 TH/MM3 Basophils # (Auto) 0.1 TH/MM3 CBC Comment AUTO DIFF Differential Total Cells 100 Counted Neutrophils % (Manual) 57 % Band Neutrophils % 16 % Lymphocytes % 7 % Monocytes % 8 % Neutrophils # (Manual) 7.4 TH/MM3 Metamyelocytes 12 % Differential Comment FINAL DIFF MANUAL Platelet Estimate LOW Platelet Morphology Comment ENLARGED [place] Cells 1+ Sodium Level 143 MEQ/L Potassium Level 3.4 MEQ/L Chloride Level 103 MEQ/L Carbon Dioxide Level 28.4 MEQ/L Anion Gap 12 MEQ/L Blood Urea Nitrogen 52 MG/DL Creatinine 2.25 MG/DL Estimat Glomerular Filtration 31 ML/MIN Rate Random Glucose 182 MG/DL Lactic Acid Level 2.4 mmol/L Calcium Level 7.1 MG/DL Protein Corrected Calcium 7.7 MG/DL Magnesium Level 1.8 MG/DL Total Protein 6.0 GM/DL Assessment and Plan Assessment and Plan HR still a bit fast. Will add dig one time to help control HR. Discussed with Dr. Dodge. Beginning heparin. Will hold off on amio for now Js Osborne MD Mar 05, 2017 07:35
--- NOTE | 2017-03-05 07:50 | HHI.CCPN ---
Subjective Remarks/Hospital Course The patient is a 56-year-old male who presents to the emergency department via EMS as a cardiac arrest. According to EMS the patient was in the living room, the is in another room talking to him, when she heard a loud noise, when she entered the living room, the patient was on the floor face down. When EMS arrived they stated the patient was in fine V. fib, the defibrillator the patient 1 and he subsequently went into asystole and PEA. They placed an IM in the left lower extremity and administered 4 rounds of epinephrine and 100 mEq of bicarbonate. They stated the patient went into PA and then they regained pulses just prior to arrival. The patient is well known to the cardiology, Dr. Akbar In discussion with cardiology the patient has a known nonischemic cardiomyopathy, AICD was offered to the patient several months ago, at which the patient declined.He was intubated in the field by EMS. Upon arrival the patient was intubated, pulseless, and CPR was initially started. Critical care medicine was consulted for management. Subjective: 03/04: Patient remains on hypothermia protocol, target 10 achieved at 8 PM last evening. Prior to hypothermic protocol initiation the patient was noted to have persistent myoclonic jerks requiring intervention. The patient has severe metabolic acidosis requiring escalation of sodium bicarbonate infusion and continues on multiple vasopressor medications-to include norepinephrine, vasopressin, and phenylephrine. The patient has been weaned down on Cardizem infusion for atrial fibrillation. Echo performed revealing ejection fraction 10 20%. Discussion last evening with family per Dr. Syed, the patient was made with an alternate CODE STATUS. Palliative care was also consulted yesterday. 03/05: Rewarming initiated, target rewarming temperature 36.0 to be achieved at 08:30 AM. During the night/early a.m., Cardizem was discontinued. Discussion with Dr. Osborne coloring room man, plans for low-dose digoxin to be initiated. Of note urine output improving. Left lower extremity ultrasound revealed nonocclusive left thrombus. PT/INR requested with plans for initiation of heparin protocol, secondary to atrial fibrillation. Previous INR 2.2 during hypothermic protocol. Sodium bicarbonate infusion discontinued this a.m.. Plans for neurology follow-up in EEG this afternoon. During the night the patient had an episode of a 15 beat run of ventricular tachycardia which self corrected. Patient was noted to have hypokalemia and a magnesium level 1.8, replete this a.m.. The patient's abdomen was noted to be distended, pending KUB. NG tube continues LIWS. Objective Vital Signs Date Time Temp Pulse Resp B/P Pulse Ox O2 Delivery O2 Flow Rate FiO2 03/05/17 06:15 100 03/05/17 06:15 97 03/05/17 03:00 95.0 100 22 103/67 108/68 03/03/17 13:19 Auto-Vent 03/03/17 10:33 15.00 Intake and Output 03/04/17 03/04/17 03/05/17 08:00 16:00 00:00 Intake Total 5441 ml 4070 ml Output Total 12 ml 910 ml Balance 5429 ml 3160 ml Result Diagram: 03/05/17 0530 03/05/17 0530 Other Results Laboratory Tests Test 03/05/17 05:20 Blood Gas Puncture Site ART LINE Blood Gas Patient Temperature 98.6 Blood Gas HCO3 26 mmol/L (22-26) Blood Gas Base Excess 0.7 mmol/L (-2-2) Blood Gas Oxygen Saturation 88 % (90-100) Arterial Blood pH 7.35 (7.380-7.420) Arterial Blood Partial 48 mmHg (38-42) Pressure CO2 Arterial Blood Partial 65 mmHg Pressure O2 (61-120) Arterial Blood Oxygen Content 16.5 Vol % (12.0-20.0) Arterial Blood 1.3 % (0-4) Carboxyhemoglobin Arterial Blood Methemoglobin 1.4 % (0-2) Blood Gas Hemoglobin 13.4 G/DL (12.0-16.0) Oxygen Delivery Device VENTILATOR Blood Gas Ventilator Setting PRVC/AC Blood Gas Inspired Oxygen 100 % Imaging Last Impressions Chest X-Ray 03/05/17 0600 Signed Impressions: Service Date/Time: February 03:35 - CONCLUSION: Worsening pulmonary edema. Bibasilar opacities are present may be due to a combination of consolidation and or pleural effusion. Lillian Hernandez MD Lower Extremity Ultrasound 03/04/17 1001 Signed Impressions: Service Date/Time: Saturday, March 04, 2017 10:23 - CONCLUSION: No evidence of deep venous thrombosis within the right lower extremity. Nonocclusive thrombus is noted within the left greater saphenous vein. Ronaldo George MD Head CT 03/03/17 1052 Signed Impressions: Service Date/Time: Friday, March 03, 2017 12:02 - CONCLUSION: 1. High density ovoid lesion within the region of the sella/suprasellar cistern measuring 11 x 14 mm. This raises the possibility of anterior communicating artery aneurysm. CTA or MRA of the brain would be helpful for further evaluation of this finding. 2. No evidence of acute hemorrhage, acute infarct, mass effect or extra axial fluid collections. 3. Minimal periventricular white matter small vessel ischemic changes bilaterally. Ronaldo George MD ADDENDUM: The report was called to the emergency room staff immediately at 12:20 PM on 03/03/17. Ronaldo George MD Last Impressions Head CT 03/03/17 1052 Signed Impressions: Service Date/Time: Friday, March 03, 2017 12:02 - CONCLUSION: 1. High density ovoid lesion within the region of the sella/suprasellar cistern measuring 11 x 14 mm. This raises the possibility of anterior communicating artery aneurysm. CTA or MRA of the brain would be helpful for further evaluation of this finding. 2. No evidence of acute hemorrhage, acute infarct, mass effect or extra axial fluid collections. 3. Minimal periventricular white matter small vessel ischemic changes bilaterally. Ronaldo George MD ADDENDUM: The report was called to the emergency room staff immediately at 12:20 PM on 03/03/17. Ronaldo George MD Chest X-Ray 03/03/17 1052 Signed Impressions: Service Date/Time: Friday, March 03, 2017 11:29 - CONCLUSION: Satisfactory position endotracheal, nasogastric and central venous support devices. Mild congestive changes with small right pleural effusion and right basilar airspace disease. Koffi Acuna MD Objective Remarks GENERAL: Obese male, intubated and sedated . SKIN: Warm and dry. Venous stasis noted bilateral lower extremities HEAD: Atraumatic. Normocephalic. EYES: Pupils equal and round. No scleral icterus. No injection or drainage. ENT: No nasal bleeding or discharge. Mucous membranes pink and moist. NECK: Trachea midline. Unable to assess JVD. CARDIOVASCULAR: Normal rate, irregular rhythm. Multifocal PVCs. RESPIRATORY: Mechanical ventilation. Clear to auscultation. Breath sounds equal bilaterally. GASTROINTESTINAL: Abdomen soft, obese. Hypoactive bowel sounds, noticed slightly distended MUSCULOSKELETAL: Extremities without clubbing, cyanosis, or edema. No obvious deformities. NEUROLOGICAL: GCS 3T Intubated and sedated Urinary Catheter: Yes Farah insert reason: Measure Accurate Output Date of Insertion: Mar 03, 2017 Date of Insertion: Mar 03, 2017 Line: Central Venous Catheter Side: Left, Right Location: Femoral, Internal, Jugular A/P Assessment and Plan This is a 56-year-old critically ill male, status post witnessed V. fib arrest. Upon admission to the ED the patient was noted to be pulseless, CPR was reinitiated x 34 minutes, with an additional dose of epinephrine, ROSC. The patient's prognosis is extremely guarded, the patient has a long history of nonischemic cardiomyopathy at which point AICD was offered but the patient declined. Discussion with patient's coloring room man, Dr. Akbar is in agreement as the patient may not survive current hospitalization. Phenylephrine 240 mcgs Norepinephrine 10 mcgs Vasopressin .04 mcgs Versed 2 mg Fent 50mcgs Cisatracurium (weaning off) Plan by systems: Neurologic: Possible Hypoxic encephalopathy Myoclonic activity --GCS 3T --03/03 CT brain-no acute hemorrhage. High density ovoid lesion within the region of the sella/suprasellar cistern measuring 1114 mm possibility of anterior communicating artery aneurysm. --Neurology consulted --EEG this afternoon, post cessation of Versed and fentanyl infusions --Discontinue Versed ,fentanyl , cisatracurium post rewarming at 36 C, will consider propofol infusion if required Respiratory: Respiratory arrest Severe pulmonary hypertension Pulmonary edema --Mechanical ventilation 22/550/10/100% --PA pressures 60-70mmHg -- ABG 7.35/48/65/26/0.7 --03/04 Chest x-ray -Worsening pulmonary edema --Discontinue sodium bicarbonate infusion Cardiovascular: S/P V. fib arrest Nonischemic cardiomyopathy Cardiomegaly Acute systolic heart failure Atrial fibrillation -- Postarrest hypothermia protocol-cisatracurium, Versed, fentanyl --Norepinephrine, vasopressin , phenylephrine maintain MAP greater than 65mmHg --Cardizem discontinued --Cardiology following -rate control management per Dr. Osborne. Digoxin scheduled to be initiated. --Obtain PT/INR, begin heparin infusion Renal: ZBIGNIEW-secondary to cardiac arrest Oliguria --Farah --UOP- 700cc 12 hours --Diuresis per nephrology Nephrology following-Dr. Guaman -- Strict I/Os FEN/GI: Metabolic acidosis-resolved Hypokalemia Abdominal distention --sodium bicarbonate infusion discontinued 03/05 --Nothing by mouth status -- Zofran for nausea --Maintain OGT to LIWS-100 cc gastric output --Initiate bowel regimen --Obtain KUB Heme/ID: --Monitor CBC --03/04 blood cultures- NGTD Endocrine: Glucose monitoring per ICU protocol -- SSI Prophylaxis: GI Prophylaxis Pepcid 20 mg twice a day DVT Prophylaxis -- SCDs Lines: Right radial a line, day #3, right IJ day #3, right femoral cooling catheter day #3 Dispo: Discussed with family, and Dr. Osborne and PROFESSOR OF [employer] HISTORY at bedside. I met with entire family and palliative care on 03/04/2017 and provide a medical update as well as guarded prognosis. Discussion also focused on guarded neurological condition, nonischemic cardiomyopathy, and severe pulmonary hypertension with the possible need for tracheostomy and PEG placement in the future. Family stated at this time, they don't feel that the patient would is either a tracheostomy and PEG placement. Plans for continued discussion with palliative care team. This patient remains critically ill with one or more organ systems which are or may become a threat to life. I have spent in excess of 40 minutes discontinuously in the care and management of this patient. This time is exclusive of procedures, and includes, but is not limited to, evaluation of the patient, review of the medical record, discussions with family, consultants, nursing staff, or respiratory therapy, and documentation in the medical record. Physician Cynthia Dior MD Mar 05, 2017 07:50 Cynthia Dodge MD Mar 05, 2017 07:50
[2017-03-05 07:55] LABS: INTERNATIONAL NORMALIZED RATIO 1.8 RATIO; PROTHROMBIN TIME - PATIENT 20.1 SEC (9.8-11.6)
[2017-03-05] MEDS ORDERED: MAGNESIUM HYDROXIDE SUSP 30 ML CUP PO PRN (08:00)
[2017-03-05] MEDS ORDERED: POTASSIUM CHLOR 40 MEQ PREMIX 100 ML IV ONE (08:00)
[2017-03-05] MEDS: MAGNESIUM SULFATE 1 GM PREMIX 100 ML IV SCH ×2 (08:35→09:26)
[2017-03-05] MEDS: DOCUSATE SODIUM 50 MG/SENNA 8.6 MG TAB PO SCH ×2 (08:36→22:01)
[2017-03-05] MEDS: DOCUSATE SODIUM 100 MG/10 ML UDC PO SCH ×2 (08:36→22:01)
[2017-03-05] MEDS: FAMOTIDINE 20 MG TAB PO SCH ×2 (08:36→22:01)
[2017-03-05] MEDS: CHLORHEXIDINE 0.12% (ORAL KIT) 15 ML CUP MT SCH ×2 (08:41→20:00)
[2017-03-05] MEDS: SODIUM CHLOR 0.9% 1000 ML INJ 1,000 ML IV SCH (08:42)
[2017-03-05] MEDS: ARTIFICIAL TEARS OPTH SOLN 15 ML BTL EACH EYE SCH ×3 (08:46→18:21)
[2017-03-05] MEDS: FUROSEMIDE 40 MG/4 ML VIAL IV PUSH SCH ×2 (09:00→18:21)
[2017-03-05] MEDS: SODIUM CHLORIDE 0.9% FLUSH 10 ML FLUSH IV FLUSH SCH ×2 (09:00→22:00)
--- NOTE | 2017-03-05 09:34 | RADRPT ---
EXAM DATE/TIME: 03/05/2017 08:50 [facility] COMPARISON: CHEST SINGLE AP, March 05, 2017, 3:35. INDICATIONS : Distention. MEDICAL HISTORY : Cardiovascular disease. Hypertension SURGICAL HISTORY : None. ENCOUNTER: Initial ACUITY: 2 days PAIN SCORE: Non-responsive. LOCATION: Bilateral abdomen FINDINGS: The exam is limited due to the patient's size. There is a venous catheter which overlies the course o f the right iliac vein. The bowel gas pattern is difficult to visualize due to overlying soft tissue but no definite findings are seen suggesting bowel obstruction. There is a nasogastric tube within th e stomach. The lung bases demonstrate the heart to be enlarged. CONCLUSION: 1. Very limited examination. Bowel gas pattern is nonspecific. NG tube in satisfactory position. Barber Rojas MD on March 05, 2017 at 9:31 Board Certified Radiologist. This report was verified electronically.
[2017-03-05] MEDS: HEPARIN-D5W INJ 250 ML IV SCH (11:02)
--- NOTE | 2017-03-05 14:00 | HHI.HCPN ---
Reason for visit a. To assist with evaluation and management of symptoms including: Dyspnea, anxiety, pain b. To assist medical decision maker(s) with: better understanding of current medical conditions; weighing benefits/burdens of medical treatment options; making medical treatment decisions. Subjective/Interval History 56-year-old male, now normothermic status post code cool, after V. fib arrest at home. He remains intubated, weaning sedation. Cisatracurium and Versed stopped this morning, remains on fentanyl 50 mcg/kg for pain management. Plan to stop fentanyl 1 hour prior to EEG to evaluate neuro status. Not responsive to painful stimuli at this time, mildly tachycardic in atrial fibrillation with rapid ventricular response, Cardizem DC'd. Overnight had several episodes of NSVT. Electrolytes corrected. Remains on phenylephrine at 240 g, norepinephrine at 10 g, vasopressin 0.04 g and dobutamine 2.5 mcg/kg/ m. Abdominal distention noted, OG tube to LIWS, KUB nonspecific. Laboratory studies white blood cells 8.7, hemoglobin 13.4, hematocrit 39.8, platelets 140, sodium 143, potassium 3.4, BUN 52, creatinine 2.25, lactic acid 2.4, protein corrected calcium 7.7, magnesium 1.8, ABG pH 7.35, PCO2 48, PaO2 65 , HCO3 26, base excess +0.7, oxygen saturation 88% on PRVC/AC at 100% FiO2. . Family/friend interactions Discussed plan with family members at length to include plan for EEG for neuro evaluation. believes that withdrawal of support would be the most appropriate option as given his very poor cardiac status he would not regain quality of life he would be satisfied with. She feels that his quality of life and diminished to a nearly unacceptable level for him prior to the arrest event and due to his multiple comorbidities to include severe pulmonary hypertension and severe tricuspid regurgitation his incapacitation would be too great. Based on previous discussions with the patient she feels that he would not want to undergo this level of aggressive resuscitation. She would like to wait through the weekend for family members to visit and plans to revisit this and make a final decision on Thursday. . Advance Directives Living Will: Never completed Health Care Surrogate: Never completed Durable Power of Chief Engineer Waterworks: Never completed Objective Vital Signs Date Time Temp Pulse Resp B/P Pulse Ox O2 Delivery O2 Flow Rate FiO2 03/05/17 12:45 92 90 03/05/17 11:00 85 03/05/17 11:00 98.4 123 24 104/69 92 115/75 03/05/17 11:00 123 03/05/17 08:31 95 90 03/05/17 07:00 120 03/05/17 07:00 100 03/05/17 07:00 96.4 120 22 111/67 95 98/67 03/05/17 06:15 100 03/05/17 06:15 97 100 03/05/17 03:42 91 100 03/05/17 03:00 95.0 100 22 103/67 91 108/68 03/05/17 03:00 100 03/05/17 03:00 101 03/04/17 23:50 91 100 03/04/17 23:00 100 03/04/17 23:00 92.0 97 22 103/65 90 97/72 03/04/17 23:00 98 03/04/17 22:30 92 100 03/04/17 20:30 92 100 03/04/17 19:00 100 03/04/17 19:00 91.6 85 22 102/66 92 97/74 03/04/17 19:00 79 03/04/17 16:10 91 100 03/04/17 15:09 88 03/04/17 15:09 91.4 88 22 105/69 92 03/04/17 15:08 100 Intake & Output 03/05/17 03/05/17 07:00 19:00 Intake Total 3767 ml Output Total 810 ml Balance 2957 ml Intake Oral 3207 ml Albumin 500 ml Tube Irrigant 60 ml Output Urine Total 710 ml Gastric Drainage Total 100 ml # Bowel Movements 0 Physical Exam CONSTITUTIONAL/GENERAL: This is an obese patient, intubated, mechanically ventilated, not responding to stimuli. TUBES/LINES/DRAINS:Right IJ central line. SKIN: No jaundice, rashes, or lesions. Ecchymoses on upper extremities. Skin temperature warm. Not diaphoretic. HEAD: Atraumatic. Normocephalic. EYES: Pupils 2 mm, nonreactive. ENT: Orally intubated NECK: Trachea midline. CARDIOVASCULAR: Tachycardic rate and irregular rhythm without gallops, or rubs. 2/6 systolic ejection murmur. Peripheral pulses diminished. RESPIRATORY/CHEST: Symmetric, unlabored respirations. Mechanically ventilated Breath sounds equal bilaterally. No wheezes, rales, or rhonchi. GASTROINTESTINAL: Abdomen distended, no bowel sounds. OGT to LIWS GENITOURINARY: Without palpable bladder distension. Farah catheter in place with clear yellow urine. MUSCULOSKELETAL: Extremities with skin changes of peripheral vascular disease, venous stasis changes seen on lower extremities. NEUROLOGICAL: Intubated, sedation stopped several hours ago, not responsive. PSYCHIATRIC: Intubated. . Diagnostic Tests Laboratory Laboratory Tests Test 03/03/17 03/03/17 03/03/17 03/03/17 11:10 11:30 11:35 13:24 White Blood Count 12.3 TH/MM3 (4.0-11.0) Red Blood Count 4.87 MIL/MM3 (4.50-5.90) Hemoglobin 14.6 GM/DL (13.0-17.0) Hematocrit 44.5 % (39.0-51.0) Mean Corpuscular Volume 91.3 FL (80.0-100.0) Mean Corpuscular Hemoglobin 30.0 PG (27.0-34.0) Mean Corpuscular Hemoglobin 32.8 % Concent (32.0-36.0) Red Cell Distribution Width 15.7 % (11.6-17.2) Platelet Count 248 TH/MM3 (150-450) Mean Platelet Volume 8.5 FL (7.0-11.0) Neutrophils (%) (Auto) 85.6 % (16.0-70.0) Lymphocytes (%) (Auto) 7.9 % (9.0-44.0) Monocytes (%) (Auto) 4.8 % (0.0-8.0) Eosinophils (%) (Auto) 1.2 % (0.0-4.0) Basophils (%) (Auto) 0.5 % (0.0-2.0) Neutrophils # (Auto) 10.6 TH/MM3 (1.8-7.7) Lymphocytes # (Auto) 1.0 TH/MM3 (1.0-4.8) Monocytes # (Auto) 0.6 TH/MM3 (0-0.9) Eosinophils # (Auto) 0.2 TH/MM3 (0-0.4) Basophils # (Auto) 0.1 TH/MM3 (0-0.2) CBC Comment AUTO DIFF Differential Total Cells 100 Counted Neutrophils % (Manual) 64 % (16-70) Band Neutrophils % 10 % (0-6) Lymphocytes % 8 % (9-44) Monocytes % 6 % (0-8) Eosinophils % 1 % (0-4) Neutrophils # (Manual) 10.5 TH/MM3 (1.8-7.7) Metamyelocytes 9 % (0-1) Myelocytes 2 % (0-0) Differential Comment FINAL DIFF MANUAL Platelet Estimate NORMAL (NORMAL) Platelet Morphology Comment NORMAL (NORMAL) Saundra Cells 1+ (NORMAL) Prothrombin Time 17.0 SEC (9.8-11.6) Prothromb Time International 1.5 RATIO Ratio Activated Partial 34.4 SEC Thromboplast Time (24.3-30.1) Urine Color ORANGE (YELLW/STRAW) Urine Turbidity CLEAR (CLEAR) Urine pH 5.5 (5.0-8.5) Urine Specific [place] 1.022 (1.002-1.035) Urine Protein TRACE mg/dL (NEG-TRACE) Urine Glucose (UA) NEG mg/dL (NEG) Urine Ketones NEG mg/dL (NEG) Urine Occult Blood SMALL (NEG) Urine Nitrite NEG (NEG) Urine Bilirubin NEG (NEG) Urine Urobilinogen 4.0 MG/DL (LESS THAN 2.0) Urine Leukocyte Esterase NEG (NEG) Urine RBC 7 /hpf (0-3) Urine WBC 2 /hpf (0-5) Urine Squamous Epithelial <1 /hpf (0-5) Cells Urine Hyaline Casts 16 /lpf (RARE) Urine Mucus FEW /lpf (OCC) Urine Sperm RARE (NONE) Microscopic Urinalysis Comment CATH-CULT NOT IND Sodium Level 134 MEQ/L (136-145) Potassium Level 3.9 MEQ/L (3.5-5.1) Chloride Level 99 MEQ/L (98-107) Carbon Dioxide Level 18.9 MEQ/L (21.0-32.0) Anion Gap 16 MEQ/L (5-15) Blood Urea Nitrogen 29 MG/DL (7-18) Creatinine 1.41 MG/DL (0.60-1.30) Estimat Glomerular Filtration 52 ML/MIN (>89) Rate Random Glucose 121 MG/DL (74-106) Calcium Level 8.0 MG/DL (8.5-10.1) Phosphorus Level 7.1 MG/DL (2.5-4.9) Magnesium Level 2.1 MG/DL (1.5-2.5) Total Bilirubin 1.6 MG/DL (0.2-1.0) Aspartate Amino Transf 53 U/L (15-37) (AST/SGOT) Alanine Aminotransferase 39 U/L (12-78) (ALT/SGPT) Alkaline Phosphatase 111 U/L (45-117) Total Creatine Kinase 99 U/L (39-308) Troponin I 0.59 NG/ML (0.02-0.05) Total Protein 6.5 GM/DL (6.4-8.2) Albumin 2.9 GM/DL (3.4-5.0) Urine Opiates Screen NEG (NEG) Urine Barbiturates Screen NEG (NEG) Urine Amphetamines Screen NEG (NEG) Urine Benzodiazepines Screen NEG (NEG) Urine Cocaine Screen NEG (NEG) Urine Cannabinoids Screen NEG (NEG) Blood Type O NEGATIVE Antibody Screen NEGATIVE Blood Bank Comment Blood Gas Puncture Site ARTLINE Blood Gas Patient Temperature 98.6 Blood Gas HCO3 16 mmol/L (22-26) Blood Gas Base Excess -12.0 mmol/L (-2-2) Blood Gas Oxygen Saturation 89 % (90-100) Arterial Blood pH 7.11 (7.380-7.420) Arterial Blood Partial 53 mmHg (38-42) Pressure CO2 Arterial Blood Partial 95 mmHG Pressure O2 (61-120) Arterial Blood Oxygen Content 18.9 Vol % (12.0-20.0) Arterial Blood 3.8 % (0-4) Carboxyhemoglobin Arterial Blood Methemoglobin 1.0 % (0-2) Blood Gas Hemoglobin 15.1 G/DL (12.0-16.0) Oxygen Delivery Device VENT Blood Gas Ventilator Setting AC16/550/+5/100 Blood Gas Inspired Oxygen 100 % Lactic Acid Level 6.0 mmol/L (0.4-2.0) Test 03/03/17 03/03/17 03/03/17 03/03/17 16:25 16:30 18:25 23:40 Hemoglobin 14.7 GM/DL 15.1 GM/DL (13.0-17.0) (13.0-17.0) Hematocrit 46.0 % 45.9 % (39.0-51.0) (39.0-51.0) Blood Gas Puncture Site ART LINE Blood Gas Patient Temperature 98.6 Blood Gas HCO3 19 mmol/L (22-26) Blood Gas Base Excess -8.9 mmol/L (-2-2) Blood Gas Oxygen Saturation 88 % (90-100) Arterial Blood pH 7.15 (7.380-7.420) Arterial Blood Partial 56 mmHg (38-42) Pressure CO2 Arterial Blood Partial 76 mmHg Pressure O2 (61-120) Arterial Blood Oxygen Content 18.7 Vol % (12.0-20.0) Arterial Blood 1.8 % (0-4) Carboxyhemoglobin Arterial Blood Methemoglobin 1.0 % (0-2) Blood Gas Hemoglobin 15.1 G/DL (12.0-16.0) Oxygen Delivery Device VENTILATOR Blood Gas Ventilator Setting AC 550/20/+8PEEP Blood Gas Inspired Oxygen 100 % Nasal Screen MRSA (PCR) MRSA NOT DETECTED (NOT DETECT) White Blood Count 19.6 TH/MM3 (4.0-11.0) Red Blood Count 4.99 MIL/MM3 (4.50-5.90) Mean Corpuscular Volume 91.8 FL (80.0-100.0) Mean Corpuscular Hemoglobin 30.2 PG (27.0-34.0) Mean Corpuscular Hemoglobin 32.9 % Concent (32.0-36.0) Red Cell Distribution Width 16.2 % (11.6-17.2) Platelet Count 263 TH/MM3 (150-450) Mean Platelet Volume 8.9 FL (7.0-11.0) Neutrophils (%) (Auto) 86.7 % (16.0-70.0) Lymphocytes (%) (Auto) 3.4 % (9.0-44.0) Monocytes (%) (Auto) 9.5 % (0.0-8.0) Eosinophils (%) (Auto) 0.1 % (0.0-4.0) Basophils (%) (Auto) 0.3 % (0.0-2.0) Neutrophils # (Auto) 17.0 TH/MM3 (1.8-7.7) Lymphocytes # (Auto) 0.7 TH/MM3 (1.0-4.8) Monocytes # (Auto) 1.9 TH/MM3 (0-0.9) Eosinophils # (Auto) 0.0 TH/MM3 (0-0.4) Basophils # (Auto) 0.1 TH/MM3 (0-0.2) CBC Comment AUTO DIFF Differential Comment AUTO DIFF CONFIRMED Sodium Level 138 MEQ/L (136-145) Potassium Level 3.6 MEQ/L (3.5-5.1) Chloride Level 100 MEQ/L (98-107) Carbon Dioxide Level 17.3 MEQ/L (21.0-32.0) Anion Gap 21 MEQ/L (5-15) Blood Urea Nitrogen 40 MG/DL (7-18) Creatinine 1.96 MG/DL (0.60-1.30) Estimat Glomerular Filtration 36 ML/MIN (>89) Rate Random Glucose 211 MG/DL (74-106) Calcium Level 7.5 MG/DL (8.5-10.1) Phosphorus Level 6.9 MG/DL (2.5-4.9) Magnesium Level 2.1 MG/DL (1.5-2.5) Test 03/04/17 03/04/17 03/04/17 03/04/17 05:30 05:35 05:48 13:30 Prothrombin Time 25.4 SEC (9.8-11.6) Prothromb Time International 2.2 RATIO Ratio Activated Partial 38.6 SEC Thromboplast Time (24.3-30.1) Fibrinogen 429 mg/dL (227-377) White Blood Count 15.1 TH/MM3 (4.0-11.0) Red Blood Count 4.77 MIL/MM3 (4.50-5.90) Hemoglobin 14.1 GM/DL (13.0-17.0) Hematocrit 43.5 % (39.0-51.0) Mean Corpuscular Volume 91.3 FL (80.0-100.0) Mean Corpuscular Hemoglobin 29.6 PG (27.0-34.0) Mean Corpuscular Hemoglobin 32.4 % Concent (32.0-36.0) Red Cell Distribution Width 16.2 % (11.6-17.2) Platelet Count 189 TH/MM3 (150-450) Mean Platelet Volume 9.1 FL (7.0-11.0) Neutrophils (%) (Auto) 80.8 % (16.0-70.0) Lymphocytes (%) (Auto) 8.4 % (9.0-44.0) Monocytes (%) (Auto) 10.3 % (0.0-8.0) Eosinophils (%) (Auto) 0.2 % (0.0-4.0) Basophils (%) (Auto) 0.3 % (0.0-2.0) Neutrophils # (Auto) 12.2 TH/MM3 (1.8-7.7) Lymphocytes # (Auto) 1.3 TH/MM3 (1.0-4.8) Monocytes # (Auto) 1.6 TH/MM3 (0-0.9) Eosinophils # (Auto) 0.0 TH/MM3 (0-0.4) Basophils # (Auto) 0.0 TH/MM3 (0-0.2) CBC Comment DIFF FINAL Differential Comment Sodium Level 138 MEQ/L 142 MEQ/L (136-145) (136-145) Potassium Level 3.3 MEQ/L 3.2 MEQ/L (3.5-5.1) (3.5-5.1) Chloride Level 100 MEQ/L 104 MEQ/L (98-107) (98-107) Carbon Dioxide Level 19.9 MEQ/L 25.2 MEQ/L (21.0-32.0) (21.0-32.0) Anion Gap 18 MEQ/L (5-15) 13 MEQ/L (5-15) Blood Urea Nitrogen 44 MG/DL (7-18) 47 MG/DL (7-18) Creatinine 2.02 MG/DL 2.00 MG/DL (0.60-1.30) (0.60-1.30) Estimat Glomerular Filtration 35 ML/MIN (>89) 35 ML/MIN (>89) Rate Random Glucose 290 MG/DL 268 MG/DL (74-106) (74-106) Calcium Level 7.3 MG/DL 7.3 MG/DL (8.5-10.1) (8.5-10.1) Protein Corrected Calcium 8.1 MG/DL 7.9 MG/DL (8.5-10.1) (8.5-10.1) Phosphorus Level 6.5 MG/DL (2.5-4.9) Magnesium Level 1.9 MG/DL 1.8 MG/DL (1.5-2.5) (1.5-2.5) Total Bilirubin 2.1 MG/DL (0.2-1.0) Aspartate Amino Transf 132 U/L (15-37) (AST/SGOT) Alanine Aminotransferase 77 U/L (12-78) (ALT/SGPT) Alkaline Phosphatase 87 U/L (45-117) Total Protein 5.7 GM/DL 6.0 GM/DL (6.4-8.2) (6.4-8.2) Albumin 2.6 GM/DL (3.4-5.0) Blood Gas Puncture Site ART LINE Blood Gas Patient Temperature 98.6 Blood Gas HCO3 20 mmol/L (22-26) Blood Gas Base Excess -6.4 mmol/L (-2-2) Blood Gas Oxygen Saturation 88 % (90-100) Arterial Blood pH 7.25 (7.380-7.420) Arterial Blood Partial 46 mmHg (38-42) Pressure CO2 Arterial Blood Partial 70 mmHg Pressure O2 (61-120) Arterial Blood Oxygen Content 17.7 Vol % (12.0-20.0) Arterial Blood 1.3 % (0-4) Carboxyhemoglobin Arterial Blood Methemoglobin 1.2 % (0-2) Blood Gas Hemoglobin 14.3 G/DL (12.0-16.0) Oxygen Delivery Device VENTILATOR Blood Gas Ventilator Setting PRVC/AC Blood Gas Inspired Oxygen 100 % Lactic Acid Level 3.3 mmol/L (0.4-2.0) Test 03/04/17 03/05/17 03/05/17 03/05/17 20:15 00:40 05:20 05:30 Sodium Level 142 MEQ/L 144 MEQ/L 143 MEQ/L (136-145) (136-145) (136-145) Potassium Level 3.6 MEQ/L 3.4 MEQ/L 3.4 MEQ/L (3.5-5.1) (3.5-5.1) (3.5-5.1) Chloride Level 103 MEQ/L 105 MEQ/L 103 MEQ/L (98-107) (98-107) (98-107) Carbon Dioxide Level 25.1 MEQ/L 29.4 MEQ/L 28.4 MEQ/L (21.0-32.0) (21.0-32.0) (21.0-32.0) Anion Gap 14 MEQ/L (5-15) 10 MEQ/L (5-15) 12 MEQ/L (5-15) Blood Urea Nitrogen 49 MG/DL (7-18) 51 MG/DL (7-18) 52 MG/DL (7-18) Creatinine 2.00 MG/DL 2.12 MG/DL 2.25 MG/DL (0.60-1.30) (0.60-1.30) (0.60-1.30) Estimat Glomerular Filtration 35 ML/MIN (>89) 33 ML/MIN (>89) 31 ML/MIN (>89) Rate Random Glucose 238 MG/DL 206 MG/DL 182 MG/DL (74-106) (74-106) (74-106) Calcium Level 6.6 MG/DL 7.1 MG/DL 7.1 MG/DL (8.5-10.1) (8.5-10.1) (8.5-10.1) Protein Corrected Calcium 7.3 MG/DL 7.8 MG/DL 7.7 MG/DL (8.5-10.1) (8.5-10.1) (8.5-10.1) Magnesium Level 1.9 MG/DL 1.7 MG/DL 1.8 MG/DL (1.5-2.5) (1.5-2.5) (1.5-2.5) Total Protein 5.7 GM/DL 5.7 GM/DL 6.0 GM/DL (6.4-8.2) (6.4-8.2) (6.4-8.2) Blood Gas Puncture Site ART LINE Blood Gas Patient Temperature 98.6 Blood Gas HCO3 26 mmol/L (22-26) Blood Gas Base Excess 0.7 mmol/L (-2-2) Blood Gas Oxygen Saturation 88 % (90-100) Arterial Blood pH 7.35 (7.380-7.420) Arterial Blood Partial 48 mmHg (38-42) Pressure CO2 Arterial Blood Partial 65 mmHg Pressure O2 (61-120) Arterial Blood Oxygen Content 16.5 Vol % (12.0-20.0) Arterial Blood 1.3 % (0-4) Carboxyhemoglobin Arterial Blood Methemoglobin 1.4 % (0-2) Blood Gas Hemoglobin 13.4 G/DL (12.0-16.0) Oxygen Delivery Device VENTILATOR Blood Gas Ventilator Setting [facility]/ Blood Gas Inspired Oxygen 100 % White Blood Count 8.7 TH/MM3 (4.0-11.0) Red Blood Count 4.47 MIL/MM3 (4.50-5.90) Hemoglobin 13.4 GM/DL (13.0-17.0) Hematocrit 39.8 % (39.0-51.0) Mean Corpuscular Volume 89.1 FL (80.0-100.0) Mean Corpuscular Hemoglobin 30.1 PG (27.0-34.0) Mean Corpuscular Hemoglobin 33.7 % Concent (32.0-36.0) Red Cell Distribution Width 16.6 % (11.6-17.2) Platelet Count 140 TH/MM3 (150-450) Mean Platelet Volume 8.9 FL (7.0-11.0) Neutrophils (%) (Auto) 88.8 % (16.0-70.0) Lymphocytes (%) (Auto) 2.9 % (9.0-44.0) Monocytes (%) (Auto) 7.1 % (0.0-8.0) Eosinophils (%) (Auto) 0.0 % (0.0-4.0) Basophils (%) (Auto) 1.2 % (0.0-2.0) Neutrophils # (Auto) 7.7 TH/MM3 (1.8-7.7) Lymphocytes # (Auto) 0.3 TH/MM3 (1.0-4.8) Monocytes # (Auto) 0.6 TH/MM3 (0-0.9) Eosinophils # (Auto) 0.0 TH/MM3 (0-0.4) Basophils # (Auto) 0.1 TH/MM3 (0-0.2) CBC Comment AUTO DIFF Differential Total Cells 100 Counted Neutrophils % (Manual) 57 % (16-70) Band Neutrophils % 16 % (0-6) Lymphocytes % 7 % (9-44) Monocytes % 8 % (0-8) Neutrophils # (Manual) 7.4 TH/MM3 (1.8-7.7) Metamyelocytes 12 % (0-1) Differential Comment FINAL DIFF MANUAL Platelet Estimate LOW (NORMAL) Platelet Morphology Comment ENLARGED (NORMAL) Saundra Cells 1+ (NORMAL) Lactic Acid Level 2.4 mmol/L (0.4-2.0) Test 03/05/17 07:30 Prothrombin Time 20.1 SEC (9.8-11.6) Prothromb Time International 1.8 RATIO Ratio Activated Partial 41.0 SEC Thromboplast Time (24.3-30.1) Result Diagram: 03/05/17 0530 03/05/17 0530 Microbiology Microbiology Date/Time Procedure Status Source Growth 03/04/17 14:04 Aerobic Blood Culture - Preliminary Resulted Blood Peripheral NO GROWTH IN 1 DAY 03/04/17 14:04 Anaerobic Blood Culture - Preliminary Resulted Blood Peripheral NO GROWTH IN 1 DAY Imaging Last Impressions Chest X-Ray 03/05/17 0600 Signed Impressions: Service Date/Time: February 03:35 - CONCLUSION: Worsening pulmonary edema. Bibasilar opacities are present may be due to a combination of consolidation and or pleural effusion. Lillian Hernandez MD Abdomen X-Ray 03/05/17 0000 Signed Impressions: Service Date/Time: February 08:50 - CONCLUSION: 1. Very limited examination. Bowel gas pattern is nonspecific. NG tube in satisfactory position. Barber Rojas MD Lower Extremity Ultrasound 03/04/17 1001 Signed Impressions: Service Date/Time: Saturday, March 04, 2017 10:23 - CONCLUSION: No evidence of deep venous thrombosis within the right lower extremity. Nonocclusive thrombus is noted within the left greater saphenous vein. Ronaldo George MD Head CT 03/03/17 1052 Signed Impressions: Service Date/Time: Friday, March 03, 2017 12:02 - CONCLUSION: 1. High density ovoid lesion within the region of the sella/suprasellar cistern measuring 11 x 14 mm. This raises the possibility of anterior communicating artery aneurysm. CTA or MRA of the brain would be helpful for further evaluation of this finding. 2. No evidence of acute hemorrhage, acute infarct, mass effect or extra axial fluid collections. 3. Minimal periventricular white matter small vessel ischemic changes bilaterally. Ronaldo George MD ADDENDUM: The report was called to the emergency room staff immediately at 12:20 PM on 03/03/17. Ronaldo George MD Procedures 03/03-attempted placement of cooling catheter to left femoral vein. 03/03-placement of cooling catheter through right femoral vein 03/03-intubation 03/03-right IJ central line placement Assessment and Plan Disease Oriented Problem List: (1) Cardiopulmonary arrest with successful resuscitation (2) COPD (chronic obstructive pulmonary disease) (3) Coronary artery disease (4) Atrial fibrillation (5) Ventricular fibrillation (6) Diabetes (7) Respiratory failure (8) PVD (peripheral vascular disease) (9) Hypertension (10) Obesity (11) Non-ischemic cardiomyopathy (12) Severe tricuspid regurgitation Symptom Scale: (1) Pain, generalized 0-10 Scale: Unable to quantify (2) Anxiety 0-10 Scale: Unable to quantify (3) Dyspnea and respiratory abnormalities 0-10 Scale: Unable to quantify Pertinent Non-Medical Issues Psychosocial: He was born in [place] but moved to [place] as an where he spent most of his adult life. He enjoyed fishing and golf and reading. He loved all babies and was deeply involved with his grandchildren and children. He was known to have a very sharp sense of humor and loved a good discussion. Spiritual: No spiritual affiliation. Legal: His is his legal proxy. Ethical issues impacting care: Important Contacts - Supriya Mckeon, Prognosis His prognosis is poor. He has suffered multiple V. fib arrests requiring repeated resuscitation attempts and was down awaiting resuscitative efforts for over 15 minutes. He is critically ill, undergoing cooling protocol in cardiovascular intensive care, intubated, requiring vasopressors for hemodynamic support. His ejection fraction is in the 10-20% range and had previously declined defibrillator implantation. Cardiac function has declined since previous available echocardiogram to include severe pulmonary hypertension and severe tricuspid regurgitation, complicating his recovery. Code Status: Alternative Code Plan PLAN: Legal decision maker: At this time patient is not capacitated to make decisions due to clinical condition which by [place] statutes would make his spouse Supriya Mckeon the legal decision maker. . Goals: Aggressive at this time. CODE STATUS: Alternate code with intubation, shock, ACLS drugs. No CPR. SYMPTOMS: * Dyspnea - patient remains on mechanical ventilation. Taking an occasional breath above ventilator rate, on 100% FiO2, is at risk due to cardiopulmonary compromise. Sedation off, currently not responding. * Anxiety - patient remains sedated at this time and symptoms difficult to assess however, as sedation is weaned patient is at significant risk for anxiety related to mechanical intubation, ICU environment and invasive lines. Currently on low-dose fentanyl. * Pain - currently sedated, however at risk for pain secondary to bedbound status, invasive lines, recent CPR and defibrillation. Fentanyl at low dose, which will be held at time of the EEG. Palliative care continues to update family with medical condition and for planned interventions. Patient remains unresponsive after cessation of sedation today. Pending neurological evaluation. At this time family is considering withdrawal of support in the near future. Palliative care will continue to follow the patient during hospital course as condition evolves, to assist patient/decision-maker with understanding of their medical conditions, weighing benefits/burdens of treatment options, for clarification of goals of treatment. Additionally will assist with any symptoms of palliative concern Attestation To help prompt me to consider important information that might be impacting today's encounter and assessment, information from prior notes written by myself or my colleagues may have been "brought forward" into today's note. My signature on this note, however, is an attestation that I personally performed the exam, history, and/or decision-making noted today, and, unless otherwise indicated, the interactions with patient, family, and staff as well as the review of records all occurred today. I also attest that the listed assessment and stated plan reflect my best clinical judgment today based on the combination of historical information, prior notes, and today's exam/ interactions. When time spent is documented, it refers only to time spent today by the signer, or if indicated, combined time spent today by collaborating physician/nurse practitioner. Amairani Crocker Mar 05, 2017 2:00 pm
--- NOTE | 2017-03-05 15:13 | HHI.NPPN ---
Subjective History of Present Illness 56 year old with cardiac arrest on vent Additional Remarks abdominal distension Objective Data Data 03/04/17 03/05/17 19:00 07:00 Intake Total 4070 ml 3767 ml Output Total 910 ml 810 ml Balance 3160 ml 2957 ml Intake Oral 3207 ml IV Total 3570 ml Albumin 500 ml 500 ml Tube Irrigant 60 ml Output Urine Total 610 ml 710 ml Gastric Drainage Total 300 ml 100 ml # Bowel Movements 0 0 Vital Signs Date Time Temp Pulse Resp B/P Pulse Ox O2 Delivery O2 Flow Rate FiO2 03/05/17 12:45 92 90 03/05/17 11:00 85 03/05/17 11:00 98.4 123 24 104/69 92 115/75 03/05/17 11:00 123 03/05/17 08:31 95 90 03/05/17 07:00 120 03/05/17 07:00 100 03/05/17 07:00 96.4 120 22 111/67 95 98/67 03/05/17 06:15 100 03/05/17 06:15 97 100 03/05/17 03:42 91 100 03/05/17 03:00 95.0 100 22 103/67 91 108/68 03/05/17 03:00 100 03/05/17 03:00 101 03/04/17 23:50 91 100 03/04/17 23:00 100 03/04/17 23:00 92.0 97 22 103/65 90 97/72 03/04/17 23:00 98 03/04/17 22:30 92 100 03/04/17 20:30 92 100 03/04/17 19:00 100 03/04/17 19:00 91.6 85 22 102/66 92 97/74 03/04/17 19:00 79 03/04/17 16:10 91 100 -: 03/05/17 0530 03/05/17 0530 Physical Exam General Appearance: Well Developed Neck Neck Exam: Neck Supple Pulmonary Resp Exam: Decreased Bases Cardiology CV Exam: Arrhythmia Gastrointestinal/Abdomen GI Exam: Soft, Distended Extremeties Extremities Exam: Moderate Edema Neurologic Neuro Exam: Comatose Assessment/Plan Problem List: (1) Acute renal failure Plan: Patient has ARF ATN UOP low CVP high Abd distension worse start Bumex drip at 1 mg/hr K low replaced follow BMP (2) Coronary artery disease Plan: Cardiology is following (3) Atrial fibrillation Plan: : Diltiazem (4) Non-ischemic cardiomyopathy Plan: EF is 10-20% (5) Cardiopulmonary arrest with successful resuscitation Plan: Patient has encephalopathy (6) Anoxic encephalopathy Plan: Continue monitor getting EEG (7) Acidosis, metabolic Anjelica Guaman MD Mar 05, 2017 15:13
[2017-03-05] MEDS ORDERED: HEPARIN SODIUM - IV 10,000 UNITS/10 ML VIAL IV PRN ×2 (15:45)
[2017-03-05] MEDS: DILTIAZEM INJ 125 MG in SODIUM CHLORIDE 0.9% INJ 100 ML IV SCH ×2 (15:55→23:57)
[2017-03-05] MEDS ORDERED: BUMETANIDE INJ 100 ML IV SCH (17:15)
[2017-03-05 17:27] LABS: APTT (PATIENT) 46.2 SEC (24.3-30.1)
--- NOTE | 2017-03-05 18:11 | MG ---
cc: GIANCARLO HENDERSON M.D. Lab No: [id number] Date: Age: 56 Sex: M Race: REFERRING: Dr. Dodge. ROOM: 448. Intubated status post rewarmed from code cool, hyperventilation was not done. Photic only. CT report is done but there is no report given to me. This is a 56-year-old man with cardiac arrest status post code cool found face down on the floor unresponsive in a deep fit and went into asystole and PEA, regained pulse after CPR and epinephrine and rewarmed for EEG with a history of cardiac disease, COPD, alcohol and tobacco use, known history of nonischemic cardiomyopathy refusing to wear his vest on pressors, fentanyl, no epinephrine. DESCRIPTION OF RECORD: There is overall slowing of the background here seen between 3 Hz at times to 1 Hz consistent with delta frequency. It is noted that there is some artifact. The EKG is artifactual as well. Fentanyl initially was at 50 mcg and then epoch 11 and then turned off at epoch 16. The background is still slow at between 1-3 Hz on occasion very attenuated background. Photic stimulation did not elicit a driving response. Deep tactile stimulation did not change the background either. IMPRESSION: Abnormal EEG due to severe slowing consistent with severe cerebral dysfunction / encephalopathy without any epileptic activity. Clinical correlation. MD ROMERO Smith/SEGUNDO /3:20 PM /5:58 PM
--- NOTE | 2017-03-05 19:11 | MB ---
cc: AARON WHALEN DATE OF CONSULTATION: 03/05/2017. REASON FOR CONSULTATION: HISTORY OF PRESENT ILLNESS: The patient is a 56-year-old man with cardiac arrest. He was code cooled and that ended about three hours ago. He has been off sedatives for approximately seven hours. I have been asked to see him for a neurologic evaluation. The patient was face down on the floor after his heard him fall. He was in ventricular fibrillation, defibrillated and went into asystole / PEA had epinephrine and went into PEA and regained pulses just prior to arrival. This patient has a history of cardiomyopathy. SOCIAL HISTORY: He drinks three times a week. He just quit smoking a week ago. ALLERGIES: NO KNOWN DRUG ALLERGIES. MEDICATIONS AT HOME: None listed from home. MEDICATIONS HERE: 1. Pepcid. 2. Bumex. 3. He got some IV heparin. 4. He had some Versed, last one at 4:00 a.m. 5. Fentanyl at 4:00 a.m. PHYSICAL EXAMINATION: VITAL SIGNS: Afebrile, 98.2, 105, 112/67. NECK: There are no carotid bruits. HEART: Regular rhythm. I do not detect a murmur. He appears to be in atrial fibrillation however. NEUROLOGICAL EXAMINATION: The pupils are equal but his eyes are deviated up. Dolls eyes are abnormal. Corneals are absent. Nasal stimulation bilaterally is nonreactive. Flaccid throughout. There is no ankle clonus. Toes are mute. No reaction to pain or voice. LABS: CBC is essentially unremarkable. Initial white count was 12 but now normal. ABG initially 7.11 now 7.35. Basic metabolic profile: Creatinine is 2.25 and it is slowly coming up, BUN 52, sodium is normal, corrected calcium 7.7, lactic acid 2.4, phosphorus is normal. Total protein is 6. Last PT was 20. Urine drug screen negative. Urinalysis essentially normal. 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 Chest x-ray shows worsening pulmonary edema. It does look like a probably large aneurysm around the clivus or at least an ovoid mass. IMPRESSION: Post code encephalopathy. RECOMMENDATIONS / PLAN: 1. We will check an EEG and MRI of the brain, MRA [place] for what might have been aneurysm. 2. Will observe him for the next 24 hours. MD ALBANIA Falk/SEGUNDO /4:42 PM /6:55 PM
[2017-03-05] MEDS: VASOPRESSIN INJ 40 UNITS in SODIUM CHLORIDE 0.9% INJ 98 ML IV SCH (19:52)
[2017-03-06] VITALS (11 sets, daily range): BP systolic 122–127; BP diastolic 65–80; PULSE 90–109; RESP 26–28; TEMP 98.7–98.8; O2SAT 83–98
[2017-03-06 01:00] LABS: APTT (PATIENT) 49.6 SEC (24.3-30.1)
[2017-03-06] MEDS: CHLORHEXIDINE GLUCONATE 2 % 1 PACK (2 CLOTHS) TOP SCH (04:00)
[2017-03-06 04:34] LABS: HEMATOCRIT 37.8 % (39.0-51.0); MEAN CELL VOLUME 89.7 FL (80.0-100.0); MEAN CORPUSCULAR HEMOGLOBIN 29.2 PG (27.0-34.0); MEAN CORPUSCULAR HGB CONC 32.5 % (32.0-36.0); PLATELET COUNT 111 TH/MM3 (150-450); RED BLOOD COUNT 4.21 MIL/MM3 (4.50-5.90); RED CELL DISTRIBUTION WIDTH 16.4 % (11.6-17.2); REVIEW FLAG FINAL; WHITE BLOOD COUNT 11.2 TH/MM3 (4.0-11.0)
[2017-03-06] MEDS: RESP: ALBUTEROL 2.5 MG/IPRATROPIUM 0.5 MG NEB (SCH) INH ×2 (04:43→08:33)
[2017-03-06 05:01] LABS: BICARBONATE 26.4 MEQ/L (21.0-32.0); POTASSIUM 3.8 MEQ/L (3.5-5.1)
[2017-03-06] MEDS: DOBUTamine INJ 1,000 MG in SODIUM CHLOR 0.9% 250 ML INJ 170 ML IV SCH (05:21)
--- NOTE | 2017-03-06 05:23 | RADRPT ---
EXAM DATE/TIME: 03/06/2017 04:34 [facility] COMPARISON: CHEST SINGLE AP, March 05, 2017, 3:35. INDICATIONS : Evaluate respiratory failure. MEDICAL HISTORY : Hypertension. Cardiovascular disease. Chronic obstructive pulmonary SURGICAL HISTORY : None. ENCOUNTER: Subsequent ACUITY: 1 week PAIN SCORE: Non-responsive. LOCATION: Bilateral chest FINDINGS: The cardiac silhouette is enlarged in transverse diameter. There are findings of congestive heart komal lure with interstitial and alveolar opacity bilaterally. The findings are improved when compared with the prior exam. Moderate size bilateral pleural effusions are identified. CONCLUSION: 1. Cardiomegaly and findings of congestive heart failure. The findings are improved when compared wit h the prior exam. Js Samuels MD on March 06, 2017 at 5:20 Board Certified Radiologist. This report was verified electronically.
[2017-03-06 06:28] LABS: BLOOD GAS BASE EXCESS -1.8 mmol/L (-2-2); BLOOD GAS CARBOXYHEMOGLOBIN 1.3 % (0-4); BLOOD GAS HCO3 23 mmol/L (22-26); BLOOD GAS METHEMOGLOBIN 1.3 % (0-2); BLOOD GAS O2 HGB SATURATION 94 % (90-100); BLOOD GAS OXYGEN CONTENT 16.7 Vol % (12.0-20.0); BLOOD GAS PCO2 40 mmHg (38-42); BLOOD GAS PO2 92 mmHg (61-120); BLOOD GAS TOTAL HGB 12.6 G/DL (12.0-16.0); CRITICAL VALUE NO; OXYGEN DEVICE VENTILATOR; TEMP CORR TO 98.6
[2017-03-06 06:29] LABS: DRAW SITE ART LINE; FIO2 75 %; STAT NO; VENT SETTINGS PRVC/AC
[2017-03-06] MEDS: INSULIN ASPART SUPPLEMENTAL SCALE SQ SCH ×2 (07:00→11:17)
[2017-03-06] MEDS: SODIUM CHLOR 0.9% 1000 ML INJ 1,000 ML IV SCH (08:00)
--- NOTE | 2017-03-06 08:01 | PD.CARD.PN ---
Subjective Subjective Remarks intubated, mechanically ventilated, slightly tachycardic Objective Vital Signs / I&O Vital Signs Date Time Temp Pulse Resp B/P Pulse Ox O2 Delivery O2 Flow Rate FiO2 03/06/17 04:43 96 75 03/06/17 03:26 90 03/06/17 03:24 99 03/06/17 03:24 98.7 90 26 123/65 96 126/71 03/06/17 01:04 97 80 03/05/17 23:11 96 03/05/17 23:11 98.7 98 31 109/69 96 92/69 03/05/17 23:00 90 03/05/17 22:40 96 85 03/05/17 19:57 95 85 03/05/17 19:30 98.7 105 31 115/69 96 108/72 03/05/17 19:00 90 03/05/17 19:00 101 03/05/17 16:12 95 90 03/05/17 15:00 98.2 105 26 112/67 95 136/73 03/05/17 15:00 90 03/05/17 15:00 105 03/05/17 12:45 92 90 03/05/17 11:00 85 03/05/17 11:00 98.4 123 24 104/69 92 115/75 03/05/17 11:00 123 03/05/17 08:31 95 90 I/O 03/05/17 03/05/17 03/05/17 03/06/17 03/06/17 03/06/17 07:00 15:00 23:00 07:00 15:00 23:00 Intake Total 3767 ml 2556 ml 1297 ml Output Total 810 ml 180 ml 593 ml Balance 2957 ml 2376 ml 704 ml Intake Oral 3207 ml IV Total 2026 ml 1297 ml Albumin 500 ml 500 ml Tube Irrigant 60 ml Other 30 ml Output Urine Total 710 ml 180 ml 443 ml Gastric Drainage Total 100 ml 0 ml 150 ml # Bowel Movements 0 0 0 Physical Exam GENERAL: intubated NECK: No JVD. No carotid bruit. CARDIOVASCULAR: IR IR. S1/S2 no murmur, rub, or gallop. RESPIRATORY: tachypnea. Clear to auscultation. Breath sounds equal bilaterally. GASTROINTESTINAL: Abdomen soft, non-tender, nondistended. MUSCULOSKELETAL: Extremities with edema. Laboratory Laboratory Tests Test 03/05/17 03/06/17 03/06/17 03/06/17 16:53 00:26 04:18 06:09 Activated Partial 46.2 SEC 49.6 SEC Thromboplast Time White Blood Count 11.2 TH/MM3 Red Blood Count 4.21 MIL/MM3 Hemoglobin 12.3 GM/DL Hematocrit 37.8 % Mean Corpuscular Volume 89.7 FL Mean Corpuscular Hemoglobin 29.2 PG Mean Corpuscular Hemoglobin 32.5 % Concent Red Cell Distribution Width 16.4 % Platelet Count 111 TH/MM3 Mean Platelet Volume 9.1 FL Sodium Level 143 MEQ/L Potassium Level 3.8 MEQ/L Chloride Level 106 MEQ/L Carbon Dioxide Level 26.4 MEQ/L Anion Gap 11 MEQ/L Blood Urea Nitrogen 57 MG/DL Creatinine 2.79 MG/DL Estimat Glomerular Filtration 24 ML/MIN Rate Random Glucose 162 MG/DL Calcium Level 7.5 MG/DL Phosphorus Level 4.4 MG/DL Magnesium Level 2.0 MG/DL Blood Gas Puncture Site ART LINE Blood Gas Patient Temperature 98.6 Blood Gas HCO3 23 mmol/L Blood Gas Base Excess -1.8 mmol/L Blood Gas Oxygen Saturation 94 % Arterial Blood pH 7.38 Arterial Blood Partial 40 mmHg Pressure CO2 Arterial Blood Partial 92 mmHg Pressure O2 Arterial Blood Oxygen Content 16.7 Vol % Arterial Blood 1.3 % Carboxyhemoglobin Arterial Blood Methemoglobin 1.3 % Blood Gas Hemoglobin 12.6 G/DL Oxygen Delivery Device VENTILATOR Blood Gas Ventilator Setting PRVC/AC Blood Gas Inspired Oxygen 75 % Assessment and Plan Problem List: (1) Ventricular fibrillation (2) Coronary artery disease (3) Atrial fibrillation Assessment and Plan AF- on diltiazem gtt and heparin gtt VF/SCD - continue supportive measures, further recommendations per Chang Alvarenga Mar 06, 2017 08:01
[2017-03-06] MEDS: ARTIFICIAL TEARS OPTH SOLN 15 ML BTL EACH EYE SCH (09:00)
[2017-03-06] MEDS: FUROSEMIDE 40 MG/4 ML VIAL IV PUSH SCH (09:00)
[2017-03-06] MEDS: SODIUM CHLORIDE 0.9% FLUSH 10 ML FLUSH IV FLUSH SCH (09:00)
[2017-03-06] MEDS ORDERED: LACTULOSE SYRUP 20 GM/30 ML CUP PO SCH (09:15)
[2017-03-06] MEDS ORDERED: PROPOFOL 1000 MG/100 ML INJ 100 ML IV SCH (09:15)
[2017-03-06] MEDS ORDERED: MAGNESIUM HYDROXIDE SUSP 30 ML CUP PO PRN (09:15)
[2017-03-06] MEDS: FAMOTIDINE 20 MG TAB PO SCH (09:24)
[2017-03-06] MEDS: CHLORHEXIDINE 0.12% (ORAL KIT) 15 ML CUP MT SCH (09:24)
[2017-03-06] MEDS: DOCUSATE SODIUM 100 MG/10 ML UDC PO SCH (09:24)
[2017-03-06] MEDS: HEPARIN-D5W INJ 250 ML IV SCH (09:26)
[2017-03-06] MEDS: PHENYLEPHRINE INJ 160 MG in SODIUM CHLORID 0.9% 500 ML INJ 484 ML IV SCH (09:29)
[2017-03-06] MEDS ORDERED: methylPREDNISolone SOD SUCC 125 MG/2 ML VIAL IV PUSH SCH (09:30)
--- NOTE | 2017-03-06 10:04 | HHI.CCPN ---
Subjective Remarks/Hospital Course The patient is a 56-year-old male who presents to the emergency department via EMS as a cardiac arrest. According to EMS the patient was in the living room, the is in another room talking to him, when she heard a loud noise, when she entered the living room, the patient was on the floor face down. When EMS arrived they stated the patient was in fine V. fib, the defibrillator the patient 1 and he subsequently went into asystole and PEA. They placed an IM in the left lower extremity and administered 4 rounds of epinephrine and 100 mEq of bicarbonate. They stated the patient went into PA and then they regained pulses just prior to arrival. The patient is well known to the cardiology, Dr. Akbar In discussion with cardiology the patient has a known nonischemic cardiomyopathy, AICD was offered to the patient several months ago, at which the patient declined.He was intubated in the field by EMS. Upon arrival the patient was intubated, pulseless, and CPR was initially started. Critical care medicine was consulted for management. Subjective: 03/04: Patient remains on hypothermia protocol, target 10 achieved at 8 PM last evening. Prior to hypothermic protocol initiation the patient was noted to have persistent myoclonic jerks requiring intervention. The patient has severe metabolic acidosis requiring escalation of sodium bicarbonate infusion and continues on multiple vasopressor medications-to include norepinephrine, vasopressin, and phenylephrine. The patient has been weaned down on Cardizem infusion for atrial fibrillation. Echo performed revealing ejection fraction 10 20%. Discussion last evening with family per Dr. Syed, the patient was made with an alternate CODE STATUS. Palliative care was also consulted yesterday. 03/05: Rewarming initiated, target rewarming temperature 36.0 to be achieved at 08:30 AM. During the night/early a.m., Cardizem was discontinued. Discussion with Dr. Osborne geometry teacher, plans for low-dose digoxin to be initiated. Of note urine output improving. Left lower extremity ultrasound revealed nonocclusive left thrombus. PT/INR requested with plans for initiation of heparin protocol, secondary to atrial fibrillation. Previous INR 2.2 during hypothermic protocol. Sodium bicarbonate infusion discontinued this a.m.. Plans for neurology follow-up in EEG this afternoon. During the night the patient had an episode of a 15 beat run of ventricular tachycardia which self corrected. Patient was noted to have hypokalemia and a magnesium level 1.8, replete this a.m.. The patient's abdomen was noted to be distended, pending KUB. NG tube continues LIWS. 03/06: Fentanyl off since 1400 yesterday, no improvement of neurological function noted. The patient continues to be hemodynamically unstable on vasopressor infusions. Noted posturing bilateral upper arms since rewarming. EEG showing cerebral dysfunction. Increasing oxygen requirements noted to maintain O2 saturation. Objective Vital Signs Date Time Temp Pulse Resp B/P Pulse Ox O2 Delivery O2 Flow Rate FiO2 03/06/17 09:33 97 70 03/06/17 03:24 99 03/06/17 03:24 98.7 26 123/65 126/71 03/03/17 13:19 Auto-Vent 03/03/17 10:33 15.00 Intake and Output 03/05/17 03/05/17 03/06/17 08:00 16:00 00:00 Intake Total 3767 ml 2556 ml Output Total 810 ml 180 ml Balance 2957 ml 2376 ml Result Diagram: 03/06/17 0418 03/06/17 0418 Other Results Laboratory Tests Test 03/06/17 06:09 Blood Gas Puncture Site ART LINE Blood Gas Patient Temperature 98.6 Blood Gas HCO3 23 mmol/L (22-26) Blood Gas Base Excess -1.8 mmol/L (-2-2) Blood Gas Oxygen Saturation 94 % (90-100) Arterial Blood pH 7.38 (7.380-7.420) Arterial Blood Partial 40 mmHg (38-42) Pressure CO2 Arterial Blood Partial 92 mmHg Pressure O2 (61-120) Arterial Blood Oxygen Content 16.7 Vol % (12.0-20.0) Arterial Blood 1.3 % (0-4) Carboxyhemoglobin Arterial Blood Methemoglobin 1.3 % (0-2) Blood Gas Hemoglobin 12.6 G/DL (12.0-16.0) Oxygen Delivery Device VENTILATOR Blood Gas Ventilator Setting PRVC/AC Blood Gas Inspired Oxygen 75 % Imaging Last Impressions Chest X-Ray 03/06/17 0600 Signed Impressions: Service Date/Time: Monday, March 06, 2017 04:34 - CONCLUSION: 1. Cardiomegaly and findings of congestive heart failure. The findings are improved when compared with the prior exam. Js Samuels MD Abdomen X-Ray 03/05/17 0000 Signed Impressions: Service Date/Time: February 08:50 - CONCLUSION: 1. Very limited examination. Bowel gas pattern is nonspecific. NG tube in satisfactory position. Barber Rojas MD Lower Extremity Ultrasound 03/04/17 1001 Signed Impressions: Service Date/Time: Saturday, March 04, 2017 10:23 - CONCLUSION: No evidence of deep venous thrombosis within the right lower extremity. Nonocclusive thrombus is noted within the left greater saphenous vein. Ronaldo George MD Head CT 03/03/17 1052 Signed Impressions: Service Date/Time: Friday, March 03, 2017 12:02 - CONCLUSION: 1. High density ovoid lesion within the region of the sella/suprasellar cistern measuring 11 x 14 mm. This raises the possibility of anterior communicating artery aneurysm. CTA or MRA of the brain would be helpful for further evaluation of this finding. 2. No evidence of acute hemorrhage, acute infarct, mass effect or extra axial fluid collections. 3. Minimal periventricular white matter small vessel ischemic changes bilaterally. Ronaldo George MD ADDENDUM: The report was called to the emergency room staff immediately at 12:20 PM on 03/03/17. Ronaldo George MD Last Impressions Chest X-Ray 03/05/17 0600 Signed Impressions: Service Date/Time: February 03:35 - CONCLUSION: Worsening pulmonary edema. Bibasilar opacities are present may be due to a combination of consolidation and or pleural effusion. Lillian Hernandez MD Lower Extremity Ultrasound 03/04/17 1001 Signed Impressions: Service Date/Time: Saturday, March 04, 2017 10:23 - CONCLUSION: No evidence of deep venous thrombosis within the right lower extremity. Nonocclusive thrombus is noted within the left greater saphenous vein. Ronaldo George MD Head CT 03/03/17 1052 Signed Impressions: Service Date/Time: Friday, March 03, 2017 12:02 - CONCLUSION: 1. High density ovoid lesion within the region of the sella/suprasellar cistern measuring 11 x 14 mm. This raises the possibility of anterior communicating artery aneurysm. CTA or MRA of the brain would be helpful for further evaluation of this finding. 2. No evidence of acute hemorrhage, acute infarct, mass effect or extra axial fluid collections. 3. Minimal periventricular white matter small vessel ischemic changes bilaterally. Ronaldo George MD ADDENDUM: The report was called to the emergency room staff immediately at 12:20 PM on 03/03/17. Ronaldo George MD Last Impressions Head CT 03/03/17 1052 Signed Impressions: Service Date/Time: Friday, March 03, 2017 12:02 - CONCLUSION: 1. High density ovoid lesion within the region of the sella/suprasellar cistern measuring 11 x 14 mm. This raises the possibility of anterior communicating artery aneurysm. CTA or MRA of the brain would be helpful for further evaluation of this finding. 2. No evidence of acute hemorrhage, acute infarct, mass effect or extra axial fluid collections. 3. Minimal periventricular white matter small vessel ischemic changes bilaterally. Ronaldo George MD ADDENDUM: The report was called to the emergency room staff immediately at 12:20 PM on 03/03/17. Ronaldo George MD Chest X-Ray 03/03/17 1052 Signed Impressions: Service Date/Time: Friday, March 03, 2017 11:29 - CONCLUSION: Satisfactory position endotracheal, nasogastric and central venous support devices. Mild congestive changes with small right pleural effusion and right basilar airspace disease. Koffi Acuna MD Objective Remarks GENERAL: Obese male, intubated, no sedation noted occasional posturing bilateral upper extremities. SKIN: Warm and dry. Venous stasis noted bilateral lower extremities HEAD: Atraumatic. Normocephalic. EYES: Pupils equal and round. No scleral icterus. No injection or drainage. ENT: No nasal bleeding or discharge. Mucous membranes pink and moist. NECK: Trachea midline. Unable to assess JVD. CARDIOVASCULAR: Normal rate, irregular rhythm. Multifocal PVCs. RESPIRATORY: Mechanical ventilation. Expiratory wheeze noted, diminished breath sounds. Breath sounds equal bilaterally. GASTROINTESTINAL: Abdomen soft, obese. Hypoactive bowel sounds, noticed slightly distended MUSCULOSKELETAL: Extremities without clubbing, cyanosis, or edema. No obvious deformities. NEUROLOGICAL: GCS 3T Intubated , bilateral upper extremity posturing. No seizure activity noted. Urinary Catheter: Yes Farah insert reason: Measure Accurate Output Date of Insertion: Mar 03, 2017 Date of Insertion: Mar 03, 2017 Line: Central Venous Catheter Side: Left, Right Location: Femoral, Internal, Jugular A/P Assessment and Plan Phenylephrine 187 mcgs Vasopressin .04 mcgs Heparin 1000 units Bumex 1 mg Cardizem 15mg Plan by systems: Neurologic: Possible Hypoxic encephalopathy Myoclonic activity-prior to post V. fib arrest hypothermia protocol --GCS 3T-all sedation off 03/05 at 1400 --03/03 CT brain-no acute hemorrhage. High density ovoid lesion within the region of the sella/suprasellar cistern measuring 1114 mm possibility of anterior communicating artery aneurysm. --Neurology following, Dr. Segura-tentative MRI/MRA in the future --03/04 EEG-severe slowing consistent with severe cerebral dysfunction/ encephalopathy without any epileptic activity --Bilateral upper extremity posturing noted --Propofol infusion ordered, will initiate if necessary Respiratory: Respiratory arrest Severe pulmonary hypertension Pulmonary edema --Mechanical ventilation 22/550/10/75%, will attempt and inverse ratio ventilation --PA pressures 60-70mmHg -- ABG 7.38/40/92/23/-1.8 --03/06 Chest x-ray -Worsening pulmonary edema -Methylprednisolone 60 mg twice a day --Pulmonology consulted Cardiovascular: S/P V. fib arrest Nonischemic cardiomyopathy Cardiomegaly Acute systolic heart failure Atrial fibrillation -- Postarrest hypothermia protocol-cisatracurium, Versed, fentanyl --Vasopressin , phenylephrine maintain MAP greater than 65mmHg --Cardizem reinitiated per cardiology 15 mg/hour --Cardiology following -rate control management per Dr. Osborne --Heparin infusion Renal: ZBIGNIEW-secondary to cardiac arrest Oliguria --Farah --UOP- 626cc last 24 hours --Diuresis per nephrology-currently on Bumex 1 mg/hour Nephrology following-Dr. Guaman -- Strict I/Os FEN/GI: Metabolic acidosis-resolved Hypokalemia Abdominal distention --sodium bicarbonate infusion discontinued 03/05 --Begin trickle feeds, Nepro 10 cc/hour -- Zofran for nausea --Maintain OGT to LIWS-100 cc gastric output --Initiate bowel regimen-Colace, lactulose, milk of magnesia -- 03/04 KUB-no bowel obstruction Heme/ID: --Monitor CBC --03/04 blood cultures- NGTD Endocrine: Diabetes mellitus Glucose monitoring per ICU protocol Medium dose regimen -- SSI Prophylaxis: GI Prophylaxis Pepcid 20 mg twice a day DVT Prophylaxis -- SCDs Lines: Right radial a line, day #4, right IJ day #4, right femoral cooling catheter day #4 Dispo: Discussed with family, and Dr. Osborne and [employer] at bedside. I met with entire family and palliative care on 03/04/2017 and provide a medical update as well as guarded prognosis. Discussion also focused on guarded neurological condition, nonischemic cardiomyopathy, and severe pulmonary hypertension with the possible need for tracheostomy and PEG placement in the future. Family stated at this time, they don't feel that the patient would is either a tracheostomy and PEG placement. Plans for continued discussion with palliative care team. This patient remains critically ill with one or more organ systems which are or may become a threat to life. I have spent in excess of 37 minutes discontinuously in the care and management of this patient. This time is exclusive of procedures, and includes, but is not limited to, evaluation of the patient, review of the medical record, discussions with family, consultants, nursing staff, or respiratory therapy, and documentation in the medical record. Physician Cynthia Dior MD Mar 06, 2017 10:04
[2017-03-06] MEDS ORDERED: SODIUM CHLOR 0.9% 1000 ML INJ 1,000 ML IV SCH (10:26)
[2017-03-06] MEDS ORDERED: SODIUM CHLOR 0.9% 250 ML INJ 250 ML IV PRN (10:30)
[2017-03-06] MEDS ORDERED: cloNIDine HCL 0.1 MG TAB PO PRN (10:30)
[2017-03-06] MEDS ORDERED: MORPHINE SULFATE 4 MG/ML INJ IV PUSH PRN (10:30)
[2017-03-06] MEDS ORDERED: LIDOCAINE HCL 1% 50 ML VIAL INFIL PRN (10:30)
[2017-03-06] MEDS ORDERED: BACITRACIN OINT 0.9 GM PKT TOP ONE (10:30)
[2017-03-06] MEDS ORDERED: ACETAMINOPHEN 325 MG TAB PO PRN (10:30)
[2017-03-06] MEDS ORDERED: oxyCODONE/ACETAMINOPHEN 5 MG/325 MG TAB PO PRN (10:30)
[2017-03-06] MEDS ORDERED: oxyCODONE/ACETAMINOPHEN 10 MG/325 MG TAB PO PRN (10:30)
[2017-03-06] MEDS ORDERED: ATROPINE SULFATE 1 MG/ML VIAL IV PRN (10:30)
[2017-03-06] MEDS ORDERED: LORazepam 2 MG/ML VIAL IV PRN ×3 (10:30→15:00)
[2017-03-06] MEDS ORDERED: TEMAZEPAM 15 MG CAP PO PRN (10:30)
--- NOTE | 2017-03-06 11:16 | HHI.NPPN ---
Subjective History of Present Illness 56 year old with cardiac arrest on vent Additional Remarks abdominal distension Objective Data Data 03/05/17 03/06/17 19:00 07:00 Intake Total 2556 ml 1297 ml Output Total 180 ml 593 ml Balance 2376 ml 704 ml IV Total 2026 ml 1297 ml Albumin 500 ml Other 30 ml Output Urine Total 180 ml 443 ml Gastric Drainage Total 0 ml 150 ml # Bowel Movements 0 0 Vital Signs Date Time Temp Pulse Resp B/P Pulse Ox O2 Delivery O2 Flow Rate FiO2 03/06/17 09:33 97 70 03/06/17 08:51 97 70 03/06/17 08:03 98 75 03/06/17 07:30 97 03/06/17 07:30 75 03/06/17 07:00 98.8 97 28 127/73 97 122/80 03/06/17 04:43 96 75 03/06/17 03:26 90 03/06/17 03:24 99 03/06/17 03:24 98.7 90 26 123/65 96 126/71 03/06/17 01:04 97 80 03/05/17 23:11 96 03/05/17 23:11 98.7 98 31 109/69 96 92/69 03/05/17 23:00 90 03/05/17 22:40 96 85 03/05/17 19:57 95 85 03/05/17 19:30 98.7 105 31 115/69 96 108/72 03/05/17 19:00 90 03/05/17 19:00 101 03/05/17 16:12 95 90 03/05/17 15:00 98.2 105 26 112/67 95 136/73 03/05/17 15:00 90 03/05/17 15:00 105 03/05/17 12:45 92 90 -: 03/06/17 0418 03/06/17 0418 Physical Exam General Appearance: Well Developed Neck Neck Exam: Neck Supple Pulmonary Resp Exam: Decreased Bases Cardiology CV Exam: Arrhythmia Gastrointestinal/Abdomen GI Exam: Soft, Distended Extremeties Extremities Exam: Moderate Edema Neurologic Neuro Exam: Comatose Assessment/Plan Problem List: (1) Acute renal failure Plan: Patient has ARF ATN s/p cardiac arrest UOP low CVP high Abd distension worse started Bumex drip at 1 mg/hr UOP 478 ml last night slow proceedings post Bumex drip Anoxic Encephalopathy poor prognosis get a US abdomen complete for severe abdominal distention (2) Coronary artery disease Plan: Cardiology is following (3) Atrial fibrillation Plan: : Diltiazem (4) Non-ischemic cardiomyopathy Plan: EF is 10-20% (5) Cardiopulmonary arrest with successful resuscitation Plan: Patient has encephalopathy (6) Anoxic encephalopathy Plan: Continue monitor getting EEG (7) Acidosis, metabolic Anjelica Guaman MD Mar 06, 2017 11:16
--- NOTE | 2017-03-06 14:54 | HHI.HCPN ---
Reason for visit a. To assist with evaluation and management of symptoms including: Dyspnea, anxiety, pain b. To assist medical decision maker(s) with: better understanding of current medical conditions; weighing benefits/burdens of medical treatment options; making medical treatment decisions. Subjective/Interval History 86-year-old male status post V. fib arrest, code cool, rewarm, declining in spite of intensive support. Sedation off 24 hours, nonresponsive. Family requested a meeting with palliative care to initiate procedures to withdraw support. This was discussed with the attending physician Dr. Cynthia Dodge and the consulting physician Dr. Luis Manuel Hurtado and they are both in agreement with the families wishes. Laboratory studies white blood cells 11.2, hemoglobin 12.3, hematocrit 37.8, platelets 111, sodium 143, potassium 3.8, BUN 57, creatinine 2.79. Family/friend interactions At family meeting, the patient's sisters, Dyana and Claudine, who had previously been uncertain about withdrawal, both expressed their support for the decision based on his continued clinical decline. Patient's , Supriya and bekaonBrian were both in agreement with the decision to withdraw support. Anticipatory guidance was given. All questions were answered. Supportive listening provided. They requested the withdrawal be scheduled for 4 PM today. Exhibits signed and witnessed. Discussed with Dr. Dodge, the attending, and Dr. Hurtado, the regional sales consultant. Both are in agreement with the family's decision. Advance Directives Living Will: Never completed Health Care Surrogate: Never completed Durable Power of Sausage Machine Operator: Never completed Objective Vital Signs Date Time Temp Pulse Resp B/P Pulse Ox O2 Delivery O2 Flow Rate FiO2 03/06/17 13:02 95 70 03/06/17 11:00 97 03/06/17 11:00 75 03/06/17 11:00 98.8 109 26 96 03/06/17 09:33 97 70 03/06/17 08:51 97 70 03/06/17 08:03 98 75 03/06/17 07:30 97 03/06/17 07:30 75 03/06/17 07:00 98.8 97 28 127/73 97 122/80 03/06/17 04:43 96 75 03/06/17 03:26 90 03/06/17 03:24 99 03/06/17 03:24 98.7 90 26 123/65 96 126/71 03/06/17 01:04 97 80 03/05/17 23:11 96 03/05/17 23:11 98.7 98 31 109/69 96 92/69 03/05/17 23:00 90 03/05/17 22:40 96 85 03/05/17 19:57 95 85 03/05/17 19:30 98.7 105 31 115/69 96 108/72 03/05/17 19:00 90 03/05/17 19:00 101 03/05/17 16:12 95 90 03/05/17 15:00 98.2 105 26 112/67 95 136/73 03/05/17 15:00 90 03/05/17 15:00 105 Intake & Output 03/06/17 03/06/17 07:00 19:00 Intake Total 1297 ml Output Total 593 ml Balance 704 ml IV Total 1297 ml Output Urine Total 443 ml Gastric Drainage Total 150 ml # Bowel Movements 0 Physical Exam CONSTITUTIONAL/GENERAL: This is an obese patient, intubated, mechanically ventilated, not responding to stimuli. TUBES/LINES/DRAINS:Right IJ central line. SKIN: No jaundice, rashes, or lesions. Ecchymoses on upper extremities. Skin temperature warm. Not diaphoretic. HEAD: Atraumatic. Normocephalic. EYES: Pupils 2 mm, nonreactive. ENT: Orally intubated NECK: Trachea midline. CARDIOVASCULAR: Tachycardic rate and irregular rhythm without gallops, or rubs. 2/6 systolic ejection murmur. Peripheral pulses diminished. RESPIRATORY/CHEST: Symmetric, unlabored respirations. Mechanically ventilated Breath sounds equal bilaterally. No wheezes, rales, or rhonchi. GASTROINTESTINAL: Abdomen distended, no bowel sounds. OGT to LIWS GENITOURINARY: Without palpable bladder distension. Farah catheter in place with clear yellow urine. MUSCULOSKELETAL: Extremities with skin changes of peripheral vascular disease, venous stasis changes seen on lower extremities. NEUROLOGICAL: Intubated, sedation stopped yesterday, not responsive. PSYCHIATRIC: Intubated. . Diagnostic Tests Laboratory Laboratory Tests Test 03/03/17 03/03/17 03/03/17 03/03/17 16:25 16:30 18:25 23:40 Hemoglobin 14.7 GM/DL 15.1 GM/DL (13.0-17.0) (13.0-17.0) Hematocrit 46.0 % 45.9 % (39.0-51.0) (39.0-51.0) Blood Gas Puncture Site ART LINE Blood Gas Patient Temperature 98.6 Blood Gas HCO3 19 mmol/L (22-26) Blood Gas Base Excess -8.9 mmol/L (-2-2) Blood Gas Oxygen Saturation 88 % (90-100) Arterial Blood pH 7.15 (7.380-7.420) Arterial Blood Partial 56 mmHg (38-42) Pressure CO2 Arterial Blood Partial 76 mmHg Pressure O2 (61-120) Arterial Blood Oxygen Content 18.7 Vol % (12.0-20.0) Arterial Blood 1.8 % (0-4) Carboxyhemoglobin Arterial Blood Methemoglobin 1.0 % (0-2) Blood Gas Hemoglobin 15.1 G/DL (12.0-16.0) Oxygen Delivery Device VENTILATOR Blood Gas Ventilator Setting AC 550/20/+8PEEP Blood Gas Inspired Oxygen 100 % Nasal Screen MRSA (PCR) MRSA NOT DETECTED (NOT DETECT) White Blood Count 19.6 TH/MM3 (4.0-11.0) Red Blood Count 4.99 MIL/MM3 (4.50-5.90) Mean Corpuscular Volume 91.8 FL (80.0-100.0) Mean Corpuscular Hemoglobin 30.2 PG (27.0-34.0) Mean Corpuscular Hemoglobin 32.9 % Concent (32.0-36.0) Red Cell Distribution Width 16.2 % (11.6-17.2) Platelet Count 263 TH/MM3 (150-450) Mean Platelet Volume 8.9 FL (7.0-11.0) Neutrophils (%) (Auto) 86.7 % (16.0-70.0) Lymphocytes (%) (Auto) 3.4 % (9.0-44.0) Monocytes (%) (Auto) 9.5 % (0.0-8.0) Eosinophils (%) (Auto) 0.1 % (0.0-4.0) Basophils (%) (Auto) 0.3 % (0.0-2.0) Neutrophils # (Auto) 17.0 TH/MM3 (1.8-7.7) Lymphocytes # (Auto) 0.7 TH/MM3 (1.0-4.8) Monocytes # (Auto) 1.9 TH/MM3 (0-0.9) Eosinophils # (Auto) 0.0 TH/MM3 (0-0.4) Basophils # (Auto) 0.1 TH/MM3 (0-0.2) CBC Comment AUTO DIFF Differential Comment AUTO DIFF CONFIRMED Sodium Level 138 MEQ/L (136-145) Potassium Level 3.6 MEQ/L (3.5-5.1) Chloride Level 100 MEQ/L (98-107) Carbon Dioxide Level 17.3 MEQ/L (21.0-32.0) Anion Gap 21 MEQ/L (5-15) Blood Urea Nitrogen 40 MG/DL (7-18) Creatinine 1.96 MG/DL (0.60-1.30) Estimat Glomerular Filtration 36 ML/MIN (>89) Rate Random Glucose 211 MG/DL (74-106) Calcium Level 7.5 MG/DL (8.5-10.1) Phosphorus Level 6.9 MG/DL (2.5-4.9) Magnesium Level 2.1 MG/DL (1.5-2.5) Test 03/04/17 03/04/17 03/04/17 03/04/17 05:30 05:35 05:48 13:30 Prothrombin Time 25.4 SEC (9.8-11.6) Prothromb Time International 2.2 RATIO Ratio Activated Partial 38.6 SEC Thromboplast Time (24.3-30.1) Fibrinogen 429 mg/dL (227-377) White Blood Count 15.1 TH/MM3 (4.0-11.0) Red Blood Count 4.77 MIL/MM3 (4.50-5.90) Hemoglobin 14.1 GM/DL (13.0-17.0) Hematocrit 43.5 % (39.0-51.0) Mean Corpuscular Volume 91.3 FL (80.0-100.0) Mean Corpuscular Hemoglobin 29.6 PG (27.0-34.0) Mean Corpuscular Hemoglobin 32.4 % Concent (32.0-36.0) Red Cell Distribution Width 16.2 % (11.6-17.2) Platelet Count 189 TH/MM3 (150-450) Mean Platelet Volume 9.1 FL (7.0-11.0) Neutrophils (%) (Auto) 80.8 % (16.0-70.0) Lymphocytes (%) (Auto) 8.4 % (9.0-44.0) Monocytes (%) (Auto) 10.3 % (0.0-8.0) Eosinophils (%) (Auto) 0.2 % (0.0-4.0) Basophils (%) (Auto) 0.3 % (0.0-2.0) Neutrophils # (Auto) 12.2 TH/MM3 (1.8-7.7) Lymphocytes # (Auto) 1.3 TH/MM3 (1.0-4.8) Monocytes # (Auto) 1.6 TH/MM3 (0-0.9) Eosinophils # (Auto) 0.0 TH/MM3 (0-0.4) Basophils # (Auto) 0.0 TH/MM3 (0-0.2) CBC Comment DIFF FINAL Differential Comment Sodium Level 138 MEQ/L 142 MEQ/L (136-145) (136-145) Potassium Level 3.3 MEQ/L 3.2 MEQ/L (3.5-5.1) (3.5-5.1) Chloride Level 100 MEQ/L 104 MEQ/L (98-107) (98-107) Carbon Dioxide Level 19.9 MEQ/L 25.2 MEQ/L (21.0-32.0) (21.0-32.0) Anion Gap 18 MEQ/L (5-15) 13 MEQ/L (5-15) Blood Urea Nitrogen 44 MG/DL (7-18) 47 MG/DL (7-18) Creatinine 2.02 MG/DL 2.00 MG/DL (0.60-1.30) (0.60-1.30) Estimat Glomerular Filtration 35 ML/MIN (>89) 35 ML/MIN (>89) Rate Random Glucose 290 MG/DL 268 MG/DL (74-106) (74-106) Calcium Level 7.3 MG/DL 7.3 MG/DL (8.5-10.1) (8.5-10.1) Protein Corrected Calcium 8.1 MG/DL 7.9 MG/DL (8.5-10.1) (8.5-10.1) Phosphorus Level 6.5 MG/DL (2.5-4.9) Magnesium Level 1.9 MG/DL 1.8 MG/DL (1.5-2.5) (1.5-2.5) Total Bilirubin 2.1 MG/DL (0.2-1.0) Aspartate Amino Transf 132 U/L (15-37) (AST/SGOT) Alanine Aminotransferase 77 U/L (12-78) (ALT/SGPT) Alkaline Phosphatase 87 U/L (45-117) Total Protein 5.7 GM/DL 6.0 GM/DL (6.4-8.2) (6.4-8.2) Albumin 2.6 GM/DL (3.4-5.0) Blood Gas Puncture Site ART LINE Blood Gas Patient Temperature 98.6 Blood Gas HCO3 20 mmol/L (22-26) Blood Gas Base Excess -6.4 mmol/L (-2-2) Blood Gas Oxygen Saturation 88 % (90-100) Arterial Blood pH 7.25 (7.380-7.420) Arterial Blood Partial 46 mmHg (38-42) Pressure CO2 Arterial Blood Partial 70 mmHg Pressure O2 (61-120) Arterial Blood Oxygen Content 17.7 Vol % (12.0-20.0) Arterial Blood 1.3 % (0-4) Carboxyhemoglobin Arterial Blood Methemoglobin 1.2 % (0-2) Blood Gas Hemoglobin 14.3 G/DL (12.0-16.0) Oxygen Delivery Device VENTILATOR Blood Gas Ventilator Setting PRVC/AC Blood Gas Inspired Oxygen 100 % Lactic Acid Level 3.3 mmol/L (0.4-2.0) Test 03/04/17 03/05/17 03/05/17 03/05/17 20:15 00:40 05:20 05:30 Sodium Level 142 MEQ/L 144 MEQ/L 143 MEQ/L (136-145) (136-145) (136-145) Potassium Level 3.6 MEQ/L 3.4 MEQ/L 3.4 MEQ/L (3.5-5.1) (3.5-5.1) (3.5-5.1) Chloride Level 103 MEQ/L 105 MEQ/L 103 MEQ/L (98-107) (98-107) (98-107) Carbon Dioxide Level 25.1 MEQ/L 29.4 MEQ/L 28.4 MEQ/L (21.0-32.0) (21.0-32.0) (21.0-32.0) Anion Gap 14 MEQ/L (5-15) 10 MEQ/L (5-15) 12 MEQ/L (5-15) Blood Urea Nitrogen 49 MG/DL (7-18) 51 MG/DL (7-18) 52 MG/DL (7-18) Creatinine 2.00 MG/DL 2.12 MG/DL 2.25 MG/DL (0.60-1.30) (0.60-1.30) (0.60-1.30) Estimat Glomerular Filtration 35 ML/MIN (>89) 33 ML/MIN (>89) 31 ML/MIN (>89) Rate Random Glucose 238 MG/DL 206 MG/DL 182 MG/DL (74-106) (74-106) (74-106) Calcium Level 6.6 MG/DL 7.1 MG/DL 7.1 MG/DL (8.5-10.1) (8.5-10.1) (8.5-10.1) Protein Corrected Calcium 7.3 MG/DL 7.8 MG/DL 7.7 MG/DL (8.5-10.1) (8.5-10.1) (8.5-10.1) Magnesium Level 1.9 MG/DL 1.7 MG/DL 1.8 MG/DL (1.5-2.5) (1.5-2.5) (1.5-2.5) Total Protein 5.7 GM/DL 5.7 GM/DL 6.0 GM/DL (6.4-8.2) (6.4-8.2) (6.4-8.2) Blood Gas Puncture Site ART LINE Blood Gas Patient Temperature 98.6 Blood Gas HCO3 26 mmol/L (22-26) Blood Gas Base Excess 0.7 mmol/L (-2-2) Blood Gas Oxygen Saturation 88 % (90-100) Arterial Blood pH 7.35 (7.380-7.420) Arterial Blood Partial 48 mmHg (38-42) Pressure CO2 Arterial Blood Partial 65 mmHg Pressure O2 (61-120) Arterial Blood Oxygen Content 16.5 Vol % (12.0-20.0) Arterial Blood 1.3 % (0-4) Carboxyhemoglobin Arterial Blood Methemoglobin 1.4 % (0-2) Blood Gas Hemoglobin 13.4 G/DL (12.0-16.0) Oxygen Delivery Device VENTILATOR Blood Gas Ventilator Setting PRVC/AC Blood Gas Inspired Oxygen 100 % White Blood Count 8.7 TH/MM3 (4.0-11.0) Red Blood Count 4.47 MIL/MM3 (4.50-5.90) Hemoglobin 13.4 GM/DL (13.0-17.0) Hematocrit 39.8 % (39.0-51.0) Mean Corpuscular Volume 89.1 FL (80.0-100.0) Mean Corpuscular Hemoglobin 30.1 PG (27.0-34.0) Mean Corpuscular Hemoglobin 33.7 % Concent (32.0-36.0) Red Cell Distribution Width 16.6 % (11.6-17.2) Platelet Count 140 TH/MM3 (150-450) Mean Platelet Volume 8.9 FL (7.0-11.0) Neutrophils (%) (Auto) 88.8 % (16.0-70.0) Lymphocytes (%) (Auto) 2.9 % (9.0-44.0) Monocytes (%) (Auto) 7.1 % (0.0-8.0) Eosinophils (%) (Auto) 0.0 % (0.0-4.0) Basophils (%) (Auto) 1.2 % (0.0-2.0) Neutrophils # (Auto) 7.7 TH/MM3 (1.8-7.7) Lymphocytes # (Auto) 0.3 TH/MM3 (1.0-4.8) Monocytes # (Auto) 0.6 TH/MM3 (0-0.9) Eosinophils # (Auto) 0.0 TH/MM3 (0-0.4) Basophils # (Auto) 0.1 TH/MM3 (0-0.2) CBC Comment AUTO DIFF Differential Total Cells 100 Counted Neutrophils % (Manual) 57 % (16-70) Band Neutrophils % 16 % (0-6) Lymphocytes % 7 % (9-44) Monocytes % 8 % (0-8) Neutrophils # (Manual) 7.4 TH/MM3 (1.8-7.7) Metamyelocytes 12 % (0-1) Differential Comment FINAL DIFF MANUAL Platelet Estimate LOW (NORMAL) Platelet Morphology Comment ENLARGED (NORMAL) [place] Cells 1+ (NORMAL) Lactic Acid Level 2.4 mmol/L (0.4-2.0) Test 03/05/17 03/05/17 03/06/17 03/06/17 07:30 16:53 00:26 04:18 Prothrombin Time 20.1 SEC (9.8-11.6) Prothromb Time International 1.8 RATIO Ratio Activated Partial 41.0 SEC 46.2 SEC 49.6 SEC Thromboplast Time (24.3-30.1) (24.3-30.1) (24.3-30.1) White Blood Count 11.2 TH/MM3 (4.0-11.0) Red Blood Count 4.21 MIL/MM3 (4.50-5.90) Hemoglobin 12.3 GM/DL (13.0-17.0) Hematocrit 37.8 % (39.0-51.0) Mean Corpuscular Volume 89.7 FL (80.0-100.0) Mean Corpuscular Hemoglobin 29.2 PG (27.0-34.0) Mean Corpuscular Hemoglobin 32.5 % Concent (32.0-36.0) Red Cell Distribution Width 16.4 % (11.6-17.2) Platelet Count 111 TH/MM3 (150-450) Mean Platelet Volume 9.1 FL (7.0-11.0) Sodium Level 143 MEQ/L (136-145) Potassium Level 3.8 MEQ/L (3.5-5.1) Chloride Level 106 MEQ/L (98-107) Carbon Dioxide Level 26.4 MEQ/L (21.0-32.0) Anion Gap 11 MEQ/L (5-15) Blood Urea Nitrogen 57 MG/DL (7-18) Creatinine 2.79 MG/DL (0.60-1.30) Estimat Glomerular Filtration 24 ML/MIN (>89) Rate Random Glucose 162 MG/DL (74-106) Calcium Level 7.5 MG/DL (8.5-10.1) Phosphorus Level 4.4 MG/DL (2.5-4.9) Magnesium Level 2.0 MG/DL (1.5-2.5) Test 03/06/17 06:09 Blood Gas Puncture Site ART LINE Blood Gas Patient Temperature 98.6 Blood Gas HCO3 23 mmol/L (22-26) Blood Gas Base Excess -1.8 mmol/L (-2-2) Blood Gas Oxygen Saturation 94 % (90-100) Arterial Blood pH 7.38 (7.380-7.420) Arterial Blood Partial 40 mmHg (38-42) Pressure CO2 Arterial Blood Partial 92 mmHg Pressure O2 (61-120) Arterial Blood Oxygen Content 16.7 Vol % (12.0-20.0) Arterial Blood 1.3 % (0-4) Carboxyhemoglobin Arterial Blood Methemoglobin 1.3 % (0-2) Blood Gas Hemoglobin 12.6 G/DL (12.0-16.0) Oxygen Delivery Device VENTILATOR Blood Gas Ventilator Setting PRVC/AC Blood Gas Inspired Oxygen 75 % Result Diagram: 03/06/17 0418 03/06/17 0418 Microbiology Microbiology Date/Time Procedure Status Source Growth 03/04/17 14:04 Aerobic Blood Culture - Preliminary Resulted Blood Peripheral NO GROWTH IN 2 DAYS 03/04/17 14:04 Anaerobic Blood Culture - Preliminary Resulted Blood Peripheral NO GROWTH IN 2 DAYS Imaging Last Impressions Chest X-Ray 03/06/17 0600 Signed Impressions: Service Date/Time: Monday, March 06, 2017 04:34 - CONCLUSION: 1. Cardiomegaly and findings of congestive heart failure. The findings are improved when compared with the prior exam. Js Samuels MD Abdomen X-Ray 03/05/17 0000 Signed Impressions: Service Date/Time: February 08:50 - CONCLUSION: 1. Very limited examination. Bowel gas pattern is nonspecific. NG tube in satisfactory position. Barber Rojas MD Lower Extremity Ultrasound 03/04/17 1001 Signed Impressions: Service Date/Time: Saturday, March 04, 2017 10:23 - CONCLUSION: No evidence of deep venous thrombosis within the right lower extremity. Nonocclusive thrombus is noted within the left greater saphenous vein. Ronaldo George MD Head CT 03/03/17 1052 Signed Impressions: Service Date/Time: Friday, March 03, 2017 12:02 - CONCLUSION: 1. High density ovoid lesion within the region of the sella/suprasellar cistern measuring 11 x 14 mm. This raises the possibility of anterior communicating artery aneurysm. CTA or MRA of the brain would be helpful for further evaluation of this finding. 2. No evidence of acute hemorrhage, acute infarct, mass effect or extra axial fluid collections. 3. Minimal periventricular white matter small vessel ischemic changes bilaterally. Ronaldo George MD ADDENDUM: The report was called to the emergency room staff immediately at 12:20 PM on 03/03/17. Ronaldo George MD Procedures 03/03-attempted placement of cooling catheter to left femoral vein. 03/03-placement of cooling catheter through right femoral vein 03/03-intubation 03/03-right IJ central line placement Assessment and Plan Disease Oriented Problem List: (1) Cardiopulmonary arrest with successful resuscitation (2) COPD (chronic obstructive pulmonary disease) (3) Coronary artery disease (4) Atrial fibrillation (5) Ventricular fibrillation (6) Diabetes (7) Respiratory failure (8) PVD (peripheral vascular disease) (9) Hypertension (10) Obesity (11) Non-ischemic cardiomyopathy (12) Severe tricuspid regurgitation Symptom Scale: (1) Pain, generalized 0-10 Scale: Unable to quantify (2) Anxiety 0-10 Scale: Unable to quantify (3) Dyspnea and respiratory abnormalities 0-10 Scale: Unable to quantify Pertinent Non-Medical Issues Psychosocial: He was born in [place] but moved to [place] as an infant where he spent most of his adult life. He enjoyed fishing and golf and reading. He loved all babies and was deeply involved with his grandchildren and children. He was known to have a very sharp sense of humor and loved a good discussion. Spiritual: No spiritual affiliation. Legal: His is his legal proxy. Ethical issues impacting care: Important Contacts - Supriya Linda, Prognosis His prognosis is poor. He has suffered multiple V. fib arrests requiring repeated resuscitation attempts and was down awaiting resuscitative efforts for over 15 minutes. He is critically ill, undergoing cooling protocol in cardiovascular intensive care, intubated, requiring vasopressors for hemodynamic support. His ejection fraction is in the 10-20% range and had previously declined defibrillator implantation. Cardiac function has declined since previous available echocardiogram to include severe pulmonary hypertension and severe tricuspid regurgitation, complicating his recovery. Code Status: Alternative Code Plan PLAN: Legal decision maker: At this time patient is not capacitated to make decisions due to clinical condition which by [place] statutes would make his spouse Supriya SaldivarGlennAmanda the legal decision maker. . Goals: Withdrawal of support today. CODE STATUS: DNR SYMPTOMS: * Dyspnea - patient remains on mechanical ventilation, without dyspnea. * Anxiety -patient nonresponsive to stimuli, off sedation. No signs or symptoms of anxiety. Withdrawal of support scheduled for later today, benzodiazepines will be added for prevention of any anxiety symptoms. * Pain -no response to stimuli. Withdrawal of support scheduled today, opioids available for any signs/symptoms of pain. Withdrawal of support planned for later today per family's request with physician concurrence. Palliative care will continue to follow the patient during hospital course as condition evolves, to assist patient/decision-maker with understanding of their medical conditions, weighing benefits/burdens of treatment options, for clarification of goals of treatment. Additionally will assist with any symptoms of palliative concern Attestation To help prompt me to consider important information that might be impacting today's encounter and assessment, information from prior notes written by myself or my colleagues may have been "brought forward" into today's note. My signature on this note, however, is an attestation that I personally performed the exam, history, and/or decision-making noted today, and, unless otherwise indicated, the interactions with patient, family, and staff as well as the review of records all occurred today. I also attest that the listed assessment and stated plan reflect my best clinical judgment today based on the combination of historical information, prior notes, and today's exam/ interactions. When time spent is documented, it refers only to time spent today by the signer, or if indicated, combined time spent today by collaborating physician/nurse practitioner. Amairani Crocker Mar 06, 2017 14:54
[2017-03-06] MEDS ORDERED: LORazepam 2 MG/ML VIAL IVS PRN (15:00)
[2017-03-06] MEDS ORDERED: HYDROmorphone HCL PF 2 MG/ML VIAL IV ONE ×2 (15:00)
[2017-03-06] MEDS ORDERED: ACETAMINOPHEN 650 MG SUPP RECTAL PRN (15:00)
[2017-03-06] MEDS ORDERED: FUROSEMIDE 20 MG/2 ML VIAL IV PRN (15:00)
[2017-03-06] MEDS ORDERED: HYOSCYAMINE 0.125 MG TAB PO/SL ONE (15:00)
[2017-03-06] MEDS ORDERED: BISACODYL 10 MG SUPP RECTAL PRN (15:00)
[2017-03-06] MEDS ORDERED: HYDROmorphone HCL PF 2 MG/ML VIAL IV PRN ×2 (15:00)
[2017-03-06] MEDS ORDERED: LORazepam 2 MG/ML VIAL IV ONE (15:00)
[2017-03-06] MEDS ORDERED: PROPOFOL 500 MG/50 ML INJ 50 ML ONE (15:19)
[2017-03-06] MEDS ORDERED: HYDROmorphone HCL PF 1 MG/ML VIAL IV SCH (16:00)
[2017-03-06] MEDS ORDERED: LORazepam 2 MG/ML VIAL IV SCH (16:00)
[2017-03-06] MEDS ORDERED: HYDROmorphone HCL PF 1 MG/ML VIAL IV PRN ×2 (16:00)
[2017-03-06] MEDS ORDERED: HYDROmorphone HCL PF 2 MG/ML VIAL IV SCH (16:00)
--- NOTE | 2017-03-06 16:56 | RADRPT ---
EXAM DATE/TIME: 03/06/2017 11:44 [facility] COMPARISON: US LEG LEFT VENOUS DOPPLER, March 04, 2017, 10:23. INDICATIONS : Abnormal labs. Abdominal distention. MEDICAL HISTORY : Chronic obstructive pulmonary disease. Myocardial infarction. Hypertension. Dyspnea. CAD. Diabetes. A. FIB. Cardiomyopathy. Respiratory failure. Acute renal failure. SURGICAL HISTORY : Back surgery. Inbation. ENCOUNTER: Initial ACUITY: 1 day PAIN SCORE: Nonresponsive. LOCATION: Abdomen. MEASUREMENTS: LIVER: 20.4 cm length COMMON DUCT: 5 mm RIGHT KIDNEY: 13.5 x 5.4 x 6.8 cm LEFT KIDNEY: 13.3 x 6.0 x 6.1 cm SPLEEN: 10.8 cm length AORTA: 2.5cm maximal FINDINGS: LIVER: There is heterogeneous echotexture of the liver. The liver appears quite small and cirrhotic. No mass is seen. No intrahepatic biliary ductal dilation is present. There is diffuse ascites. COMMON DUCT: No intraluminal mass or stone visualized. GALLBLADDER: No stones are identified. There is mild thickening of the gallbladder wall. PANCREAS: The visualized portions are within normal limits. RIGHT KIDNEY: No hydronephrosis, stone or mass. LEFT KIDNEY: No hydronephrosis, stone or mass. SPLEEN: No focal lesion. AORTA: Non aneurysmal. IVC: Within normal limits. CONCLUSION: 1. Cirrhotic appearing liver with diffuse ascites. The spleen is fairly small in size. 2. Mild gallbladder wall thickening. This is not uncommon in the setting of ascites. No gallstones ar e seen. Barber Rojas MD on March 06, 2017 at 16:51 Board Certified Radiologist. This report was verified electronically.
--- NOTE | 2017-03-06 17:33 | HHI.PR ---
Objective Vital Signs Date Time Temp Pulse Resp B/P Pulse Ox O2 Delivery O2 Flow Rate FiO2 03/06/17 13:02 95 70 03/06/17 11:00 97 03/06/17 11:00 75 03/06/17 11:00 98.8 109 26 96 03/06/17 09:33 97 70 03/06/17 08:51 97 70 03/06/17 08:03 98 75 03/06/17 07:30 97 03/06/17 07:30 75 03/06/17 07:00 98.8 97 28 127/73 97 122/80 03/06/17 04:43 96 75 03/06/17 03:26 90 03/06/17 03:24 99 03/06/17 03:24 98.7 90 26 123/65 96 126/71 03/06/17 01:04 97 80 03/05/17 23:11 96 03/05/17 23:11 98.7 98 31 109/69 96 92/69 03/05/17 23:00 90 03/05/17 22:40 96 85 03/05/17 19:57 95 85 03/05/17 19:30 98.7 105 31 115/69 96 108/72 03/05/17 19:00 90 03/05/17 19:00 101 I/O 03/05/17 03/05/17 03/05/17 03/06/17 03/06/17 03/06/17 07:00 15:00 23:00 07:00 15:00 23:00 Intake Total 3767 ml 2556 ml 1297 ml Output Total 810 ml 180 ml 593 ml Balance 2957 ml 2376 ml 704 ml Intake Oral 3207 ml IV Total 2026 ml 1297 ml Albumin 500 ml 500 ml Tube Irrigant 60 ml Other 30 ml Output Urine Total 710 ml 180 ml 443 ml Gastric Drainage Total 100 ml 0 ml 150 ml # Bowel Movements 0 0 0 Result Diagram: 03/06/17 0418 03/06/17 0418 Assessment and Plan Assessment and Plan imp did not awaken today acc to nurse sp ativan [email or web address] now for withdrawal eeg slow and low i dw family agree with withdrawal of life support due to anoxic brain injury Js Segura MD Mar 06, 2017 17:32
--- NOTE | 2017-03-07 16:15 | HHI.DS ---
Summary Note Date of : Mar 06, 2017 Time Of : 1750 Admission Date Mar 03, 2017 at 12:30 Admitting Diagnosis S/P VFib arrest Diagnosis at Time of : Brief History The patient is a 56-year-old male who presents to the emergency department via EMS as a cardiac arrest. According to EMS the patient was in the living room, the is in another room talking to him, when she heard a loud noise, when she entered the living room, the patient was on the floor face down. When EMS arrived they stated the patient was in fine V. fib, the defibrillator the patient 1 and he subsequently went into asystole and PEA. They placed an IM in the left lower extremity and administered 4 rounds of epinephrine and 100 mEq of bicarbonate. They stated the patient went into PA and then they regained pulses just prior to arrival. The patient is well known to the cardiology, Dr. Akbar In discussion with cardiology the patient has a known nonischemic cardiomyopathy, AICD was offered to the patient several months ago, at which the patient declined.He was intubated in the field by EMS. Upon arrival the patient was intubated, pulseless, and CPR was initially started. Critical care medicine was consulted for management. History PFSH Past Medical History Autoimmune Disease: No Cancer: No Cardiovascular Problems: Yes COPD: Yes Diabetes: No Diminished Hearing: No Endocrine: No Gastrointestinal Disorders: No Genitourinary: No Hypertension: Yes Immune Disorder: No Musculoskeletal: Yes Neurologic: No Psychiatric: No Reproductive: No Respiratory: Yes Tetanus Vaccination: Unknown Past Surgical History Abdominal Surgery: No Cardiac Surgery: Yes Ear Surgery: No Endocrine Surgery: No Eye Surgery: No Genitourinary Surgery: No Gynecologic Surgery: No Joint Replacement: No Oral Surgery: No Pacemaker: No Thoracic Surgery: No Other Surgery: Yes Social History Alcohol Use: Yes (SEVERAL TIMES PER WEEK) Tobacco Use: No (QUIT SMOKING ON THURSDAY LAST WEEK) Substance Use: No Allergies-Medications Allergies-Medications (Allergen,Severity, Reaction): Coded Allergies: No Known Allergies (Verified , 03/03/17) Reported Meds & Prescriptions Reported Meds & Active Scripts Active Active Prescriptions or Reported Medications Unobtainable ROS Review of Systems ROS Limitations: Intubated Except as stated in HPI: all other systems reviewed are Neg CBC/BMP: 03/06/17 0418 03/06/17 0418 Significant Findings Laboratory Tests Test 03/04/17 03/05/17 03/05/17 03/05/17 20:15 00:40 05:20 05:30 Blood Urea Nitrogen 49 MG/DL (7-18) 51 MG/DL (7-18) 52 MG/DL (7-18) Creatinine 2.00 MG/DL 2.12 MG/DL 2.25 MG/DL (0.60-1.30) (0.60-1.30) (0.60-1.30) Estimat Glomerular Filtration 35 ML/MIN (>89) 33 ML/MIN (>89) 31 ML/MIN (>89) Rate Random Glucose 238 MG/DL 206 MG/DL 182 MG/DL (74-106) (74-106) (74-106) Calcium Level 6.6 MG/DL 7.1 MG/DL 7.1 MG/DL (8.5-10.1) (8.5-10.1) (8.5-10.1) Protein Corrected Calcium 7.3 MG/DL 7.8 MG/DL 7.7 MG/DL (8.5-10.1) (8.5-10.1) (8.5-10.1) Total Protein 5.7 GM/DL 5.7 GM/DL 6.0 GM/DL (6.4-8.2) (6.4-8.2) (6.4-8.2) Potassium Level 3.4 MEQ/L 3.4 MEQ/L (3.5-5.1) (3.5-5.1) Blood Gas Oxygen Saturation 88 % (90-100) Arterial Blood pH 7.35 (7.380-7.420) Arterial Blood Partial 48 mmHg (38-42) Pressure CO2 Red Blood Count 4.47 MIL/MM3 (4.50-5.90) Platelet Count 140 TH/MM3 (150-450) Neutrophils (%) (Auto) 88.8 % (16.0-70.0) Lymphocytes (%) (Auto) 2.9 % (9.0-44.0) Lymphocytes # (Auto) 0.3 TH/MM3 (1.0-4.8) Band Neutrophils % 16 % (0-6) Lymphocytes % 7 % (9-44) Metamyelocytes 12 % (0-1) Platelet Estimate LOW (NORMAL) Platelet Morphology Comment ENLARGED (NORMAL) Saundra Cells 1+ (NORMAL) Lactic Acid Level 2.4 mmol/L (0.4-2.0) Test 03/05/17 03/05/17 03/06/17 03/06/17 07:30 16:53 00:26 04:18 Prothrombin Time 20.1 SEC (9.8-11.6) Activated Partial 41.0 SEC 46.2 SEC 49.6 SEC Thromboplast Time (24.3-30.1) (24.3-30.1) (24.3-30.1) White Blood Count 11.2 TH/MM3 (4.0-11.0) Red Blood Count 4.21 MIL/MM3 (4.50-5.90) Hemoglobin 12.3 GM/DL (13.0-17.0) Hematocrit 37.8 % (39.0-51.0) Platelet Count 111 TH/MM3 (150-450) Blood Urea Nitrogen 57 MG/DL (7-18) Creatinine 2.79 MG/DL (0.60-1.30) Estimat Glomerular Filtration 24 ML/MIN (>89) Rate Random Glucose 162 MG/DL (74-106) Calcium Level 7.5 MG/DL (8.5-10.1) Imaging Last Impressions Chest X-Ray 03/06/17 0600 Signed Impressions: Service Date/Time: Monday, March 06, 2017 04:34 - CONCLUSION: 1. Cardiomegaly and findings of congestive heart failure. The findings are improved when compared with the prior exam. Js Samuels MD Abdomen X-Ray 03/05/17 0000 Signed Impressions: Service Date/Time: February 08:50 - CONCLUSION: 1. Very limited examination. Bowel gas pattern is nonspecific. NG tube in satisfactory position. Barber Rojas MD Lower Extremity Ultrasound 03/04/17 1001 Signed Impressions: Service Date/Time: Saturday, March 04, 2017 10:23 - CONCLUSION: No evidence of deep venous thrombosis within the right lower extremity. Nonocclusive thrombus is noted within the left greater saphenous vein. Ronaldo George MD Head CT 03/03/17 1052 Signed Impressions: Service Date/Time: Friday, March 03, 2017 12:02 - CONCLUSION: 1. High density ovoid lesion within the region of the sella/suprasellar cistern measuring 11 x 14 mm. This raises the possibility of anterior communicating artery aneurysm. CTA or MRA of the brain would be helpful for further evaluation of this finding. 2. No evidence of acute hemorrhage, acute infarct, mass effect or extra axial fluid collections. 3. Minimal periventricular white matter small vessel ischemic changes bilaterally. Ronaldo George MD ADDENDUM: The report was called to the emergency room staff immediately at 12:20 PM on 03/03/17. Ronaldo George MD Last Impressions Chest X-Ray 03/05/17 0600 Signed Impressions: Service Date/Time: February 03:35 - CONCLUSION: Worsening pulmonary edema. Bibasilar opacities are present may be due to a combination of consolidation and or pleural effusion. Lillian Hernandez MD Lower Extremity Ultrasound 03/04/17 1001 Signed Impressions: Service Date/Time: Saturday, March 04, 2017 10:23 - CONCLUSION: No evidence of deep venous thrombosis within the right lower extremity. Nonocclusive thrombus is noted within the left greater saphenous vein. Ronaldo George MD Head CT 03/03/17 1052 Signed Impressions: Service Date/Time: Friday, March 03, 2017 12:02 - CONCLUSION: 1. High density ovoid lesion within the region of the sella/suprasellar cistern measuring 11 x 14 mm. This raises the possibility of anterior communicating artery aneurysm. CTA or MRA of the brain would be helpful for further evaluation of this finding. 2. No evidence of acute hemorrhage, acute infarct, mass effect or extra axial fluid collections. 3. Minimal periventricular white matter small vessel ischemic changes bilaterally. Ronaldo George MD ADDENDUM: The report was called to the emergency room staff immediately at 12:20 PM on 03/03/17. Ronaldo George MD Last Impressions Head CT 03/03/17 1052 Signed Impressions: Service Date/Time: Friday, March 03, 2017 12:02 - CONCLUSION: 1. High density ovoid lesion within the region of the sella/suprasellar cistern measuring 11 x 14 mm. This raises the possibility of anterior communicating artery aneurysm. CTA or MRA of the brain would be helpful for further evaluation of this finding. 2. No evidence of acute hemorrhage, acute infarct, mass effect or extra axial fluid collections. 3. Minimal periventricular white matter small vessel ischemic changes bilaterally. Ronaldo George MD ADDENDUM: The report was called to the emergency room staff immediately at 12:20 PM on 03/03/17. Ronaldo George MD Chest X-Ray 03/03/17 1052 Signed Impressions: Service Date/Time: Friday, March 03, 2017 11:29 - CONCLUSION: Satisfactory position endotracheal, nasogastric and central venous support devices. Mild congestive changes with small right pleural effusion and right basilar airspace disease. Koffi Acuna MD Hospital Course 03/04: Patient remains on hypothermia protocol, target 10 achieved at 8 PM last evening. Prior to hypothermic protocol initiation the patient was noted to have persistent myoclonic jerks requiring intervention. The patient has severe metabolic acidosis requiring escalation of sodium bicarbonate infusion and continues on multiple vasopressor medications-to include norepinephrine, vasopressin, and phenylephrine. The patient has been weaned down on Cardizem infusion for atrial fibrillation. Echo performed revealing ejection fraction 10 20%. Discussion last evening with family per Dr. Syed, the patient was made with an alternate CODE STATUS. Palliative care was also consulted yesterday. 03/05: Rewarming initiated, target rewarming temperature 36.0 to be achieved at 08:30 AM. During the night/early a.m., Cardizem was discontinued. Discussion with Dr. Osborne turkish rubber, plans for low-dose digoxin to be initiated. Of note urine output improving. Left lower extremity ultrasound revealed nonocclusive left thrombus. PT/INR requested with plans for initiation of heparin protocol, secondary to atrial fibrillation. Previous INR 2.2 during hypothermic protocol. Sodium bicarbonate infusion discontinued this a.m.. Plans for neurology follow-up in EEG this afternoon. During the night the patient had an episode of a 15 beat run of ventricular tachycardia which self corrected. Patient was noted to have hypokalemia and a magnesium level 1.8, replete this a.m.. The patient's abdomen was noted to be distended, pending KUB. NG tube continues LIWS. 03/06: Fentanyl off since 1400 yesterday, no improvement of neurological function noted. The patient continues to be hemodynamically unstable on vasopressor infusions. Noted posturing bilateral upper arms since rewarming. EEG showing cerebral dysfunction. Increasing oxygen requirements noted to maintain O2 saturation. The patient's and family decided to transition to comfort care measures this evening. With family and clergy present , comfort care measures were instituted. The patient at 1750. Cynthia Dodge MD Mar 07, 2017 16:15
== END 2017-03-06 19:06 | disposition expired | DRG 308 ==
LOC: NEPE 10:35 → NEDA 12:30 → HCVR 13:54
PROVIDERS: ADMIT Anesthesiology; ATTEND Anesthesiology
PROC: 5A12012 Performance of Cardiac Output, Single, Manual (ICD-10-PCS; principal; 2017-03-03)
PROC: 03HY32Z Insertion of Monitoring Device into Upper Artery, Percutaneous Approach (ICD-10-PCS; 2017-03-03)
PROC: 5A1945Z Respiratory Ventilation, 24-96 Consecutive Hours (ICD-10-PCS; 2017-03-03)
PROC: 05HM33Z Insertion of Infusion Device into Right Internal Jugular Vein, Percutaneous Approach (ICD-10-PCS; 2017-03-03)
DX: I49.01 Ventricular fibrillation (principal); I50.23 Acute on chronic systolic (congestive) heart failure; N17.0 Acute kidney failure with tubular necrosis; J96.90 Respiratory failure, unspecified, unspecified whether with hypoxia or hypercapnia; G93.1 Anoxic brain damage, not elsewhere classified; Z68.41 Body mass index [BMI] 40.0-44.9, adult; E87.2 Acidosis; I46.2 Cardiac arrest due to underlying cardiac condition; J44.9 Chronic obstructive pulmonary disease, unspecified; E66.9 Obesity, unspecified; I25.10 Atherosclerotic heart disease of native coronary artery without angina pectoris; I11.0 Hypertensive heart disease with heart failure; I48.91 Unspecified atrial fibrillation; I27.2 Other secondary pulmonary hypertension; F10.21 Alcohol dependence, in remission; E11.51 Type 2 diabetes mellitus with diabetic peripheral angiopathy without gangrene; I07.1 Rheumatic tricuspid insufficiency; G25.3 Myoclonus; E87.6 Hypokalemia; Z51.5 Encounter for palliative care; Z66 Do not resuscitate; Z87.891 Personal history of nicotine dependence; I25.5 Ischemic cardiomyopathy
CPT/HCPCS: 36556; 36620; 51702; 70450; 71010; 74000; 76700; 76937; 80048; 80053; 80307; 81001; 82550; 82805; 82948; 83605; 83735; 84100; 84155; 84484; 85007; 85014; 85018; 85025; 85027; 85384; 85610; 85730; 86850; 86900; 86901; 87040; 87641; 92950; 93005; 93306; 93971; 94002; 94003; 94640; 94664; 94770; 95819; 96374; J0171; J0282; J0330; J1160; J1170; J1250; J1644; J1815; J1940; J2060; J2250; J2370; J2930; J3010; J3475; J3480; J7030; J7040; J7050; P9045